=== PATIENT | female | born 1940 | race Caucasian/White ===

== ENCOUNTER 2018-11-15 11:11 | Inpatient (IN) | payer MEDICARE ==
[~2018-11-15] VITALS: Ht 160 cm; Wt 65.7 kg
[2018-11-15] VITALS (14 sets, daily range): BP systolic 86–126; BP diastolic 49–94
[~2018-11-15 11:11] MED LIST: FLUT1DIS26 IH; METO-370 PO; TIOT18CA2 IH
[2018-11-15] MEDS ORDERED: MELATONIN 3 MG TABLET PO PRN (12:15)
[2018-11-15] MEDS ORDERED: CALCIUM CARBONATE 500 MG (TUMS) TAB.CHEW PO PRN (12:15)
[2018-11-15] MEDS ORDERED: fentaNYL INJECTION 100 MCG/2 ML AMP IVP PRN (12:15)
[2018-11-15] MEDS ORDERED: POLYETHYLENE GLYCOL 17 GM (MIRALAX) PACK PO PRN (12:15)
[2018-11-15] MEDS ORDERED: diphenhydrAMINE 25 MG TAB (BENADRYL) PO PRN (12:15)
[2018-11-15] MEDS ORDERED: ALPRAZolam 0.25 MG (XANAX) TAB PO PRN (12:15)
[2018-11-15] MEDS ORDERED: LOPERAMIDE 2 MG (IMODIUM) CAP PO PRN (12:15)
[2018-11-15] MEDS ORDERED: ONDANSETRON 4 MG/2 ML (SDV) Z0FRAN IVP PRN (12:15)
[2018-11-15] MEDS ORDERED: HYDROcodone/APAP 5 MG/325 MG (LORTAB) TAB PO PRN (12:15)
[2018-11-15] MEDS ORDERED: DOCUSATE SODIUM 100 MG (COLACE) CAP PO PRN (12:15)
--- OUTSIDE RECORDS SUMMARY | 2018-11-15 13:09 | XMS REPORT | Clinical Summary ---
Author Author [facility] Organization [facility] Address Unknown Phone Unavailable Care Team Providers Care Fuel Efficient Automobile Designer Name Role Phone Jamison Ramirez MD PCP Source Comments Some departments are not documenting in the electronic medical record. If you do not see the information that you expected, contact Release of Information in the Health Information Management department at [phone] for further assistance in locating additional records.[facility] Allergies Comments Active Allergy Reactions Severity Noted Date Bactrim has caused her Creatinine to increase dramatically, from 1.22 to 2.15 Sulfamethoxazole-Trimetho SEE COMMENTS Medium 07/19/2017 prim Medications End Date Status Medication Sig Dispensed Refills Start Date Active metoprolol XL (TOPROL XL) Take 50 mg by 0 50 mg extended release mouth twice tabletIndications: Pt. daily. suppose to be taking Indications: this, but says she only Pt. 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 Palpitation 10/10/2017 Pseudomonas infection 08/29/2017 Bronchiectasis with acute exacerbation 08/15/2017 Encounters Care Team Description Date Type Specialty Haydee Agrawal MD Chronic renal impairment, unspecified CKD stage (Primary Dx) 10/24/2018 Orders Only Pulmonology Yoli Coyle, RN 10/08/2018 Documentation Pulmonology Haydee Agrawal MD Chronic renal failure, unspecified CKD stage (Primary Dx) ; History of elevated antinuclear antibody (KARMA) 09/26/2018 Orders Only Pulmonology Haydee Argawal MD 09/18/2018 Hospital Lab Encounter Haydee Agrawal MD Bronchiectasis without complication (HCC) (Primary Dx); Elevated serum creatinine; Thyroid nodule 09/18/2018 Office Visit Pulmonology Haydee Agrawal MD 09/18/2018 Hospital Encounter Haydee Agrawal MD 09/18/2018 Hospital Radiology Encounter Haydee Agrawal MD 09/18/2018 Hospital Radiology Encounter from Last 3 Months Family History Medical History Relation Name Comments Cancer Brother Cancer Mother Tumor Other Cancer Son Relation Name Status Comments Brother Mother Other Son Social History Date Tobacco Use Types Packs/Day Years Used Quit: 06/13/1997 Former Smoker Cigarettes Smokeless Tobacco: Never Used Tobacco Cessation: Counseling Given: No Sex Assigned at Date Recorded Not on file Industry Job Start Date Occupation Not on file Not on file Not on file Travel End Travel History Travel Start No recent travel history available. Last Filed Vital Signs Time Taken Vital Sign Reading 09/18/2018 11:36 AM STEM ROLLER Blood Pressure 119/71 09/18/2018 11:36 AM STEM ROLLER Pulse 103 09/18/2018 11:36 AM STEM ROLLER Temperature 36.6 C (97.8 F) 09/18/2018 11:36 AM STEM ROLLER Respiratory Rate 16 09/18/2018 11:36 AM STEM ROLLER Oxygen Saturation 95% - Inhaled Oxygen - Concentration 09/18/2018 11:36 AM STEM ROLLER Weight 62.6 kg (138 lb) 09/18/2018 11:36 AM STEM ROLLER Height 160 cm (5' 3") 09/18/2018 11:36 AM STEM ROLLER Body Mass Index 24.45 Plan of Treatment Health Maintenance Due Date Last Done Comments PHYSICAL (COMPREHENSIVE) 1947 EXAM DTAP/TDAP VACCINES (1 - 1957 Tdap) SHINGLES RECOMBINANT 1989 VACCINE (1 of 2) PNEUMONIA (PCV13/PPSV23) 2004 VACCINES (1 of 2 - PCV13) INFLUENZA VACCINE 05/30/2018 OSTEOPOROSIS Completed 10/10/2017 SCREENING/MONITORING Procedures Comments Procedure Name Priority Date/Time Associated Diagnosis URINALYSIS, MICROSCOPIC Routine 09/18/2018 Elevated serum creatinine 12:51 PM STEM ROLLER URINALYSIS DIPSTICK Routine 09/18/2018 Elevated serum creatinine 12:51 PM STEM ROLLER ANTI-NUCLEAR Routine 09/18/2018 AB(KARMA)-QUANT 12:39 PM STEM ROLLER ANTI-NUCLEAR Routine 09/18/2018 Bronchiectasis without ANTIBODY(KARMA) 12:39 PM STEM ROLLER complication (HCC) COMPREHENSIVE METABOLIC Routine 09/18/2018 Bronchiectasis without PANEL 12:39 PM STEM ROLLER complication (HCC) CBC AND DIFF Routine 09/18/2018 Bronchiectasis without 12:39 PM STEM ROLLER complication (HCC) PFT COMPLETE PULM Routine 09/18/2018 Shortness of breath FUNCTION 8:26 AM STEM ROLLER CHEST 2 VIEWS Routine 09/18/2018 Bronchiectasis without 8:20 AM STEM ROLLER complication (HCC) Cough CT CHEST WO CONTRAST Routine 09/18/2018 Bronchiectasis without 8:02 AM STEM ROLLER complication (HCC) Cough from Last 3 Months Results * URINALYSIS, MICROSCOPIC (09/18/2018 12:51 PM STEM ROLLER) WBCs,UA 0-2 0 - 2 /HPF [facility] RBCs,UA 0-2 0 - 3 /HPF [facility] MucousUA TRACE [facility] Squamous Epithelial Cells 0-2 0 - 5 [facility] Specimen Urine - Urine Performing Organization Address City/State/Zipcode Phone Number [facility] [address] [place] [address] * URINALYSIS DIPSTICK (09/18/2018 12:51 PM STEM ROLLER) Color,UA YELLOW [facility] Turbidity,UA CLEAR CLEAR-CLEAR [facility] Specific Danese-Urine 1.018 1.003 - 1.035 [facility] pH,UA 6.0 5.0 - 8.0 [facility] Protein,UA 1+ (A) NEG-NEG [facility] Glucose,UA NEG NEG-NEG [facility] Ketones,UA NEG NEG-NEG [facility] Bilirubin,UA NEG NEG-NEG [facility] Blood,UA NEG NEG-NEG [facility] Urobilinogen,UA NORMAL NORM-NORMAL [facility] Nitrite,UA NEG NEG-NEG [facility] Leukocytes,UA NEG NEG-NEG [facility] Urine Ascorbic Acid, UA NEG NEG-NEG [facility] Specimen Urine - Urine Performing Organization Address [facility] Phone Number [facility] [address] [place] [address] * ANTI-NUCLEAR AB(KARMA)-QUANT (09/18/2018 12:39 PM STEM ROLLER) KARMA Titer/Pattern 160 (H)Comment: SPECKLED <80 [facility] Performing Organization Address [facility] Phone Number [facility] [address] [place] [address] * CBC AND DIFF (09/18/2018 12:39 PM STEM ROLLER) White Blood Cells 10.6 4.5 - 11.0 K/UL [facility] RBC 4.39 4.0 - 5.0 M/UL [facility] Hemoglobin 13.3 12.0 - 15.0 GM/DL [facility] Hematocrit 40.6 36 - 45 % [facility] MCV 92.5 80 - 100 FL [facility] MCH 30.2 26 - 34 PG [facility] MCHC 32.7 32.0 - 36.0 G/DL [facility] RDW 13.4 11 - 15 % [facility] Platelet Count 223 150 - 400 K/UL [facility] MPV 7.9 7 - 11 FL [facility] Neutrophils 64 41 - 77 % [facility] Lymphocytes 26 24 - 44 % [facility] Monocytes 7 4 - 12 % [facility] Eosinophils 3 0 - 5 % [facility] Basophils 0 0 - 2 % [facility] Absolute Neutrophil Count 6.70 1.8 - 7.0 K/UL [facility] Absolute Lymph Count 2.80 1.0 - 4.8 K/UL [facility] Absolute Monocyte Count 0.80 0 - 0.80 K/UL [facility] Absolute Eosinophil Count 0.30 0 - 0.45 K/UL [facility] Absolute Basophil Count 0.00 0 - 0.20 K/UL [facility] Specimen Blood Performing Organization Address [facility] Phone Number [facility] [address] [place] [address] * ANTI-NUCLEAR ANTIBODY(KARMA) (09/18/2018 12:39 PM STEM ROLLER) KARMA Screen SEE TITER <80 TITER [facility] Specimen Blood Performing Organization Address [facility] Phone Number [facility] [address] [place] [address] * COMPREHENSIVE METABOLIC PANEL (09/18/2018 12:39 PM STEM ROLLER) Sodium 142 137 - 147 MMOL/L [facility] Potassium 4.2 3.5 - 5.1 MMOL/L [facility] Chloride 108 98 - 110 MMOL/L [facility] Glucose 108 (H) 70 - 100 MG/DL [facility] Blood Urea Nitrogen 19 7 - 25 MG/DL [facility] Creatinine 1.39 (H) 0.4 - 1.00 MG/DL [facility] Calcium 9.7 8.5 - 10.6 MG/DL [facility] Total Protein 7.4 6.0 - 8.0 G/DL [facility] Total Bilirubin 0.5 0.3 - 1.2 MG/DL [facility] Albumin 4.0 3.5 - 5.0 G/DL [facility] Alk Phosphatase 69 25 - 110 U/L [facility] AST (SGOT) 18 7 - 40 U/L [facility] CO2 28 21 - 30 MMOL/L [facility] ALT (SGPT) 9 7 - 56 U/L [facility] Anion Gap 6 3 - 12 [facility] eGFR Non 37 (L) >60 mL/min [facility] Comment: The eGFR is not validated for use in drug dosing adjustments.Continue to use estimated creatinine clearance per dosing reference text.Please contact the Clinical Pharmacist for questions. eGFR 44 (L) >60 mL/min [facility] Comment: The eGFR is not validated for use in drug dosing adjustments.Continue to use estimated creatinine clearance per dosing reference text.Please contact the Clinical Pharmacist for questions. Specimen Blood Performing Organization Address City/State/Zipcode Phone Number [facility] [address] [place] [address] * PFT COMPLETE PULM FUNCTION (09/18/2018 8:26 AM STEM ROLLER) FVC-Pre 1.89 L [facility] FVC-%Pred-pre 74 % [facility] FEV1-Pre 1.29 L [facility] FEV1-%Pred-Pre 68 % [facility] FEV1/FVC-Pre 68 % [facility] [id number] 64 % [facility] [id number] 0.72 L/sec [facility] [id number]-%Pred-Pre 50 % [facility] RVPleth-Pre 2.53 L [facility] RVPleth-%Pred-Pre 109 % [facility] TLCPleth-Pre 4.46 L [facility] TLCPleth-%Pred-Pre 90 % [facility] DLCOunc-Pre 10.64 ml/min/mmHg [facility] DLCOunc-%Pred-Pre 55 % [facility] DLCOunc-#SD -2.263 ml/min/mmHg [facility] DLVA-Pred 4.19 ml/min/mmHg/L [facility] DLVA-Pre 3.09 ml/min/mmHg/L [facility] DLVA-%Pred-Pre 73 % [facility] DLVA-SD 0.80 ml/min/mmHg/L [facility] DLVA-LLN 2.59 ml/min/mmHg/L [facility] DLVA-ULN 5.79 ml/min/mmHg/L [facility] DLVA-#SD -1.373 ml/min/mmHg/L [facility] [id number] 66 % [facility] Performing Organization Address City/State/Zipcode Phone Number [facility] [address] [place] [address] * CHEST 2 VIEWS (09/18/2018 8:20 AM STEM ROLLER) Impressions Performed At Slight increase in scattered nodularity, mild bronchiectasis, mucous plugging [facility] and scattered areas of scarring. 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 Finalized by John Powers M.D. on 09/18/2018 9:50 AM. Dictated by John Powers M.D. on 09/18/2018 9:48 AM. Narrative Performed At 2 views of the chest [facility] Clinical history: Bronchiectasis. Findings: Comparison chest film: August 29, 2017 The heart and pulmonary vasculature remain within normal limits. Scattered nodularity, scarring, mild bronchiectasis and mucous plugging have slightly increased throughout both lungs. Biapical scarring is again noted. No pleural effusion or pneumothorax is identified. Procedure Note Interface, Radiant Results - 09/18/2018 9:53 AM STEM ROLLER 2 views of the chest Clinical history: Bronchiectasis. Findings: Comparison chest film: August 29, 2017 The heart and pulmonary vasculature remain within normal limits. Scattered nodularity, scarring, mild bronchiectasis and mucous plugging have slightly increased throughout both lungs. Biapical scarring is again noted. No pleural effusion or pneumothorax is identified. IMPRESSION Slight increase in scattered nodularity, mild bronchiectasis, mucous plugging and scattered areas of scarring. 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 Finalized by John Powers M.D. on 09/18/2018 9:50 AM. Dictated by John Powers M.D. on 09/18/2018 9:48 AM. Performing Organization Address City/State/Zipcode Phone Number [facility] * CT CHEST WO CONTRAST (09/18/2018 8:02 AM STEM ROLLER) Impressions Performed At 1. Increasing moderate patchy and nodular infiltrate throughout the right lower [facility] lobe with persistent scattered mild nodular infiltrates, mild bronchiectasis and mucous plugging again seen throughout both lungs findings are compatible with worsening chronic atypical infection such as from mycobacterium avium complex (MAC). 2. Small partially calcified right inferior thyroid nodule. Ultrasound characterization is recommended if not already obtained. 3. At least moderate coronary artery calcification. Finalized by John Powers M.D. on 09/18/2018 8:29 AM. Dictated by John Powers M.D. on 09/18/2018 8:23 AM. Narrative Performed At CT Chest [facility] Clinical Indication: Multiple pulmonary nodules. Bronchiectasis. Cough. Technique: Multiple contiguous axial CT images were obtained through the chest without IV contrast.Post processing coronal and sagittal reconstruction images were made from the axial images.Additional high-resolution inspiration, expiration and prone imaging was obtained. Comparison: August 23, [address] Findings: A small partially calcified right inferior thyroid nodule measures 1.5 cm on series 3, image 7. Axilla, Mediastinum and Dania: There is no axillary or hilar lymphadenopathy identified. A few mildly prominent mediastinal lymph nodes have decreased in size and are likely reactive. Heart and Great Vessels: The heart size is normal. There is a trace pericardial effusion. There is at least moderate coronary artery calcification. Lungs and Pleura: There is increasing moderate patchy and nodular infiltrate throughout the right lower lobe. Scattered mild nodular infiltrates, mild bronchiectasis and mucous plugging are again seen scattered throughout both lungs. No pleural effusions. Chest Wall and Osseous Structures: No destructive osseous lesions. Visualized Upper Abdomen: Clips are again seen in the gallbladder fossa. Procedure Note Interface, Radiant Results - 09/18/2018 8:[address] Chest Clinical Indication: Multiple pulmonary nodules. Bronchiectasis. Cough. Technique: Multiple contiguous axial CT images were obtained through the chest without IV contrast. Post processing coronal and sagittal reconstruction images were made from the axial images. Additional high-resolution inspiration , expiration and prone imaging was obtained. Comparison: August 23, [address] Findings: A small partially calcified right inferior thyroid nodule measures 1.5 cm on series 3, image 7. Axilla, Mediastinum and Dania: There is no axillary or hilar lymphadenopathy identified. A few mildly prominent mediastinal lymph nodes have decreased in size and are likely reactive. Heart and Great Vessels: The heart size is normal. There is a trace pericardial effusion. There is at least moderate coronary artery calcification. Lungs and Pleura: There is increasing moderate patchy and nodular infiltrate throughout the right lower lobe. Scattered mild nodular infiltrates, mild bronchiectasis and mucous plugging are again seen scattered throughout both lungs. No pleural effusions. Chest Wall and Osseous Structures: No destructive osseous lesions. Visualized Upper Abdomen: Clips are again seen in the gallbladder fossa. IMPRESSION 1. Increasing moderate patchy and nodular infiltrate throughout the right lower lobe with persistent scattered mild nodular infiltrates, mild bronchiectasis and mucous plugging again seen throughout both lungs findings are compatible with worsening chronic atypical infection such as from mycobacterium avium complex (MAC). 2. Small partially calcified right inferior thyroid nodule. Ultrasound characterization is recommended if not already obtained. 3. At least moderate coronary artery calcification. Finalized by John Powers M.D. on 09/18/2018 8:29 AM. Dictated by John Powers M.D. on 09/18/2018 8:23 AM. Performing Organization Address City/State/Zipcode Phone Number [facility] from Last 3 Months Insurance Payer Benefit Subscriber ID Type Phone Address Plan / Group COVENTRY MEDICARE COVENTRY xxxxxxxxxxx Medicare ADVANTRA MEDICARE PPO Advance Directives Patient has advance care planning documents, and code status on file. For more information, please contact: [facility] [address] [place] [address] Date Inactivated Comments Code Status Date Activated 09/01/2017 7:06 PM Full Code 08/29/2017 7:33 AM Provider has discussed Code Status Yes w/Patient or Family?
--- OUTSIDE RECORDS SUMMARY | 2018-11-15 13:09 | XMS REPORT | Encounter Summary ---
Author Author [facility] Organization [facility] Address Unknown Phone Unavailable Care Team Providers Care Net Wpf Developer Name Role Phone Jamison Ramirez MD PCP Reason for Referral * Consult, Test & Treat (Routine) Referred By Contact Referred To Contact Status Reason Specialty Diagnoses / [place] [address] [place] [address] [address] [place] [address] New Request Specialty Services Diagnoses Required History of elevated antinuclear antibody (KARMA) * Consult, Test & Treat (Routine) Referred By Contact Referred To Contact Status Reason Specialty Diagnoses / [place] [address] [place] [address] [address] [place] [address] Tom Jett MD [address] [place] [id number] New Request Specialty Services Diagnoses Required Chronic renal failure, unspecified CKD stage Encounter Details Care Team Description Date Type [place] [address] [place] [address] [address] [place] [address] [phone] Chronic renal failure, unspecified CKD stage (Primary Dx); History of elevated antinuclear antibody (KARMA) 09/26/2018 Orders Only [facility] - Internal Medicine [facility] Level 5A [address] [place] [address] Social History Date Tobacco Use Types Packs/Day Years Used Quit: 06/13/1997 Former Smoker Cigarettes Smokeless Tobacco: Never Used Sex Assigned at Date Recorded Not on file Industry Job Start Date Occupation Not on file Not on file Not on file Travel End Travel History Travel Start No recent travel history available. as of this encounter Functional Status Date of Assessment Functional Status Response 08/29/2017 Does the patient have a hearing impairment: No as of this encounter Plan of Treatment Order Schedule Name Priority Associated Diagnoses Ordered: 09/26/2018 AMB REFERRAL TO NEPHROLOGY Routine Chronic renal failure, unspecified CKD stage Ordered: 09/26/2018 AMB REFERRAL TO RHEUMATOLOGY Routine History of elevated antinuclear antibody (KARMA) as of this encounter Visit Diagnoses Diagnosis Chronic renal failure, unspecified CKD stage - Primary History of elevated antinuclear antibody (KARMA) in this encounter
--- OUTSIDE RECORDS SUMMARY | 2018-11-15 13:09 | XMS REPORT | Encounter Summary ---
Author Author [facility] Organization [facility] Address Unknown Phone Unavailable Care Team Providers Care Bench Manager Name Role Phone Jamison Ramirez MD PCP Encounter Details Care Team Description Date Type Department Haydee Agrawal MD [address] [facility] [place] [address] [place] [address] Chronic renal impairment, unspecified CKD stage (Primary Dx) 10/24/2018 Orders Only [facility] Physicians - Internal Medicine Orth[facility] Level 5A [address] [place] [address] Social History Date Tobacco Use [...] hearing impairment: No as of this encounter Progress Notes * Yoli Coyle, RN - 10/24/2018 9:19 AM POWERHOUSE MECHANIC Orders for renal panel, CBC, UA with microscopy and spot urine for protein and creatinine ratio requested by [facility], to whom patient has been referred for chronic renal insufficiency. They also want her last lipid profile, but I am unsure if she has had one drawn within the last year. They have requested that these labs be drawn 1-2 weeks prior to patient's appointment with them, and appointment is in December,. I will advise patient and fax lab orders to the lab or OSH of her choice. Patient called as I was working on this and she got her appointment with [facility] moved up to December 25. I advised that they wanted labs and urine 1-2 weeks prior to appointment. She wanted lab orders faxed to [facility] and I advised her to get them done sometime after December 14 but prior to December 25. I faxed lab order to [facility] and I will also mail lab orders to patient so she can take them with her when she goes to have labs drawn. Patient is in agreement with this plan. RHOUSE MECHANIC in this encounter Plan of Treatment Order Schedule Name Priority Associated Diagnoses Expected: 01/14/2019 (Approximate), Expires: 10/24/2019 CBC Routine Chronic renal impairment, unspecified CKD stage Expected: 01/14/2019 (Approximate), Expires: 10/24/2019 LIPID PROFILE Routine Chronic renal impairment, unspecified CKD stage Expected: 01/14/2019 (Approximate), Expires: 10/24/2019 RENAL FUNCTION PANEL Routine Chronic renal impairment, unspecified CKD stage Expected: 01/14/2019 (Approximate), Expires: 10/24/2019 URINALYSIS, MICROSCOPIC Routine Chronic renal impairment, unspecified CKD stage Expected: 01/14/2019 (Approximate), Expires: 10/24/2019 TOTAL PROTEIN-URINE RANDOM Routine Chronic renal impairment, unspecified CKD stage Expected: 01/14/2019 (Approximate), Expires: 10/24/2019 PROTEIN/CR RATIO,UR RAN Routine Chronic renal impairment, unspecified CKD stage as of this encounter Visit Diagnoses Diagnosis Chronic renal impairment, unspecified CKD stage - Primary in this encounter
--- OUTSIDE RECORDS SUMMARY | 2018-11-15 13:09 | XMS REPORT | Encounter Summary ---
Author Author [facility] Organization [facility] Address Unknown Phone Unavailable Care Team Providers Care Online Education Manager Name Role Phone Jamison Ramirez MD PCP Encounter Details Care Team Description Date Type Department Yoli Coyle RN 10/08/2018 Documentation [facility] - Internal Medicine [facility] Level 5A [address] [place] [address] Social History Date Tobacco Use [...] Progress Notes * Yoli Coyle, RN - 10/08/2018 1:26 PM RESIDENTIAL SERVICE TECHNICIAN 10/15/2018: I was advised that Dr. Jett is a urologist and does not work with kidney patients. I spoke with Bela and advised that we have another name for nephrology referral: Dr. Rebecca Toney at [facility] ( physician travels to [place], [place] to see patients but appt may be delayed if Bela elects to see the doctor in [place]). Bela was agreeable to having me do new referral to this physician. Nephrology referral faxed to [facility], fax #[phone]. Contact that I spoke to at [facility] advised that I must continue to coordinate this appointment including ordering labs since they do not contact the patient for appointments and labs. In addition, Bela refused rheumatology referral since she is not sure of the importance of seeing rheumatology; she says that seeing nephrology is more important. At this time I will stop pursuing the rheumatology referral. DENTIAL SERVICE TECHNICIAN * Yoli Coyle RN - 10/08/2018 1:26 PM RESIDENTIAL SERVICE TECHNICIAN Received results of thyroid ultrasound from [facility]. Impression: Inferior right thyroid nodule does not meet criteria for FNA (fine needle aspiration). Recommend ultrasound follow-up at one, three and five years. I called Bela to advise. Also, advised Bela that referral to nephrology, Dr. Jett, was faxed September 26. Rheumatology referral was faxed to [facility] today, October 08. 10/08/2018: Bela advised that Dr. Jett's office never received referral that I faxed to them on September 26 (I received document that fax was sent successfully). I refaxed referral and documents to Dr. Jett's office, fax #[phone], as verified by acetylene operator at Dr. Jett's office. DENTIAL SERVICE TECHNICIAN in this encounter Plan of Treatment Not on fileas of this encounter Visit Diagnoses Not on filein this encounter
--- OUTSIDE RECORDS SUMMARY | 2018-11-15 13:09 | XMS REPORT | Encounter Summary ---
Author Author [facility] Organization [facility] Address Unknown Phone Unavailable Care Team Providers Care Network Infrastructure Architect Name Role Phone Jamison Ramirez MD PCP Encounter Details Care Team Description Date Type Department Haydee Agrawal MD [address] [facility] [address] [place] [address] 09/18/2018 Hospital Clinlab Encounter Main [facility] [address] [place] [address] Social History Date Tobacco Use Types Packs/Day [...] hearing impairment: No as of this encounter Medications at Time of Discharge Start Date End Date Medication Sig Dispensed Refills metoprolol XL (TOPROL XL) Take 50 mg by 0 50 mg extended release mouth twice tabletIndications: Pt. daily. suppose to be taking Indications: this, but says she only Pt. suppose takes it when she feels to be taking her heart flutter this, but says she only takes it when she feels her heart flutter 03/19/2018 XARELTO 15 mg tablet TAKE ONE 30 tablet 2 TABLET BY MOUTH ONCE DAILY WITH FOOD as of this encounter Plan of Treatment Not on fileas of this encounter Procedures Comments Procedure Name Priority Date/Time Associated Diagnosis URINALYSIS, MICROSCOPIC Routine 09/18/2018 Elevated serum creatinine 12:51 PM RADIOLOGY MANAGER URINALYSIS DIPSTICK Routine 09/18/2018 Elevated serum creatinine 12:51 PM RADIOLOGY MANAGER ANTI-NUCLEAR Routine 09/18/2018 AB(KARMA)-QUANT 12:39 PM RADIOLOGY MANAGER CBC AND DIFF Routine 09/18/2018 Bronchiectasis without 12:39 PM RADIOLOGY MANAGER complication (HCC) ANTI-NUCLEAR Routine 09/18/2018 Bronchiectasis without ANTIBODY(KARMA) 12:39 PM RADIOLOGY MANAGER complication (HCC) COMPREHENSIVE METABOLIC Routine 09/18/2018 Bronchiectasis without PANEL 12:39 PM RADIOLOGY MANAGER complication (HCC) in this encounter Results * URINALYSIS, MICROSCOPIC (09/18/2018 12:51 PM RADIOLOGY MANAGER) WBCs,UA 0-2 0 - 2 /HPF [facility] RBCs,UA 0-2 0 - 3 /HPF [facility] MucousUA TRACE [facility] Squamous Epithelial Cells 0-2 0 - 5 [facility] Specimen Urine - Urine Performing Organization Address [facility] Phone Number [facility] [address] [place] [address] * URINALYSIS DIPSTICK (09/18/2018 12:51 PM RADIOLOGY MANAGER) Color,UA YELLOW [facility] Turbidity,UA CLEAR CLEAR-CLEAR [facility] Specific Lee-Urine 1.018 1.003 - 1.035 [facility] [...] Specimen Urine - Urine Performing Organization Address [facility] Phone Number [facility] [address] [place] [address] * ANTI-NUCLEAR AB(KARMA)-QUANT (09/18/2018 12:39 PM RADIOLOGY MANAGER) KARMA Titer/Pattern 160 (H)Comment: SPECKLED <80 [facility] Performing Organization Address [facility] Phone Number [facility] [address] [place] [address] * ANTI-NUCLEAR ANTIBODY(KARMA) (09/18/2018 12:39 PM RADIOLOGY MANAGER) KARMA Screen SEE TITER <80 TITER [facility] Specimen Blood Performing Organization Address [facility] Phone Number [facility] [address] [place] [address] * COMPREHENSIVE METABOLIC PANEL (09/18/2018 12:39 PM RADIOLOGY MANAGER) Sodium 142 137 - 147 MMOL/L [facility] [...] for questions. Specimen Blood Performing Organization Address [facility] Phone Number [facility] [address] [place] [address] * CBC AND DIFF (09/18/2018 12:39 PM RADIOLOGY MANAGER) White Blood Cells 10.6 4.5 - 11.0 [...] MAIN LAB Specimen Blood Performing Organization Address City/State/Zipcode Phone Number [facility] [address] [place] [address] in this encounter Visit Diagnoses Diagnosis Bronchiectasis without complication (HCC) Bronchiectasis without acute exacerbation Elevated serum creatinine Other nonspecific findings on examination of blood in this encounter
--- OUTSIDE RECORDS SUMMARY | 2018-11-15 13:10 | XMS REPORT | Encounter Summary ---
Author Author [facility] Organization [facility] Address Unknown Phone Unavailable Care Team Providers Care Machine Paint Mixer Name Role Phone Jamison Ramirez MD PCP Encounter Details Care Team Description Date Type Department Haydee Agrawal MD [address] [employer] [facility] [address] [place] [address] 09/18/2018 Hospital [facility] Radiology [address] [facility] MED OFFICE [address] [place] [address] Social History Date Tobacco Use Types Packs/Day [...] Comments Procedure Name Priority Date/Time Associated Diagnosis CHEST 2 VIEWS Routine 09/18/2018 Bronchiectasis without 8:20 AM MAJOR ASSEMBLY INSPECTOR complication (HCC) Cough in this encounter Results * CHEST 2 VIEWS (09/18/2018 8:20 AM MAJOR ASSEMBLY INSPECTOR) Impressions Performed At Slight increase in scattered [...] Interface, Radiant Results - 09/18/2018 9:53 AM MAJOR ASSEMBLY INSPECTOR 2 views of the chest Clinical history: [...] Address City/State/Zipcode Phone Number [facility] RESULTS in this encounter Visit Diagnoses Diagnosis Bronchiectasis without complication (HCC) Bronchiectasis without acute exacerbation Cough in this encounter
--- OUTSIDE RECORDS SUMMARY | 2018-11-15 13:10 | XMS REPORT | Encounter Summary ---
Author Author [facility] Organization [facility] Address Unknown Phone Unavailable Care Team Providers Care Crystallography Teacher Name Role Phone Jamison Ramirez MD PCP Reason for Visit * Consult, Test & Treat (Routine) Referred By Contact Referred To Contact Status Reason Specialty Diagnoses / Procedures Haydee Agrawal MD [id number] [place] [address] Pulmonary Function [facility] [address] [place] [address] No Auth Needed Specialty Services Diagnoses Required Bronchiectasis without complication (HCC) Cough Encounter Details Care Team Description Date Type Department Haydee Agrawal MD [id number] [place] [address] [phone] 09/18/2018 Hospital [facility] Pulmonary Function [facility] [address] [place] [address] Social History Date Tobacco Use Types Packs/Day [...] Comments Procedure Name Priority Date/Time Associated Diagnosis PFT COMPLETE PULM Routine 09/18/2018 Shortness of breath FUNCTION 8:26 AM US CUSTOMS AND BORDER OFFICER in this encounter Results * PFT COMPLETE PULM FUNCTION (09/18/2018 8:26 AM US CUSTOMS AND BORDER OFFICER) FVC-Pre 1.89 L [facility] FVC-%Pred-pre 74 % [facility] FEV1-Pre 1.29 L [facility] FEV1-%Pred-Pre 68 % [facility] FEV1/FVC-Pre 68 % [facility] [id number] 64 % [facility] [id number] 0.72 L/sec [facility] [id number]-%Pred-Pre 50 % [facility] RVPleth-Pre 2.53 [...] MAIN DLVA-#SD -1.373 ml/min/mmHg/L [facility] [id number] 66 % [facility] Performing Organization Address City/State/Zipcode Phone Number [facility] [address] [place] [address] in this encounter Visit Diagnoses Diagnosis Shortness of breath - Primary in this encounter
--- OUTSIDE RECORDS SUMMARY | 2018-11-15 13:10 | XMS REPORT | Encounter Summary ---
Author Author [facility] Organization [facility] Address Unknown Phone Unavailable Care Team Providers Care Vocational Technical Education Director Name Role Phone Jamison Ramirez MD PCP Reason for Referral * Radiology Services (Routine) Referred By Contact Referred To Contact Status Reason Specialty Diagnoses / Procedures Haydee Agrawal MD [address] [place] [address] [place] [facility] [place] [address] Closed Radiology Diagnoses Bronchiectasis without complication (HCC) Cough P rocedures CT CHEST WO CONTRAST * Radiology Services (Routine) Referred By Contact Referred To Contact Status Reason Specialty Diagnoses / Procedures Haydee Agrawal MD [address] [place] [address] [facility] [place] [address] Closed Radiology Diagnoses Bronchiectasis without complication (HCC) Cough P rocedures CT CHEST WO CONTRAST Reason for Visit * Radiology Services (Routine) Referred By Contact Referred To Contact Status Reason Specialty Diagnoses / Procedures Haydee Agrawal MD [address] [facility] [address] [place], [place] [id number] [address] [facility] [place] [address] Closed Radiology Diagnoses Bronchiectasis without complication (HCC) Cough P rocedures CT CHEST WO CONTRAST Encounter Details Care Team Description Date Type Department Haydee Agrawal MD [address] [facility] [address] [place] [address] [phone] 09/18/2018 Hospital [facility] Encounter Hospital Radiology [address] [facility] MED OFFICE [address] [place] [address] Social History Date Tobacco Use [...] Comments Procedure Name Priority Date/Time Associated Diagnosis CT CHEST WO CONTRAST Routine 09/18/2018 Bronchiectasis without 8:02 AM HVAC TECHNICIAN complication (HCC) Cough in this encounter Results * CT CHEST WO CONTRAST (09/18/2018 8:02 AM HVAC TECHNICIAN) Impressions Performed At 1. Increasing moderate patchy [...] Interface, Radiant Results - 09/18/2018 8:[address] Chest Clinical Indication: Multiple pulmonary nodules. [...]
--- OUTSIDE RECORDS SUMMARY | 2018-11-15 13:10 | XMS REPORT | Clinical Summary ---
Author Author [facility] Organization [facility] Address Unknown Phone Unavailable Care Team Providers Care Supervisor Rubber Covering Name Role Phone Severo Ramirez MD PCP Allergies Not on File Current Medications Not on file Active Problems Not on file Social History Tobacco Use Types Packs/Day Years Used Date Never Assessed Sex Assigned at Date Recorded Not on file Last Filed Vital Signs Not on file Plan of Treatment Health Maintenance Due Date Last Done Comments Td # 1940 Zoster Vaccine# (1 of 2) 1989 Fall Risk Assessment # 2004 Osteoporosis Screening 2004 Pneumococcal Immunization 2004 65+ (1 of 2 - PCV13) Influenza Vaccine (#1) 2018 Results Not on filefrom Last 3 Months
--- OUTSIDE RECORDS SUMMARY | 2018-11-15 13:10 | XMS REPORT | Continuity of Care Document ---
Author Author [facility] Organization [facility] Address Unknown Phone Unavailable Allergies Active Description Code Type Severity Reaction Onset Reported/Identified Relationship to Patient Clinical Status Yes No Known Drug Allergies [id number] Drug Allergy Unknown N/A 03/04/2016 Medications There is no data. Problems Date Dx Coded Attending Type Code Diagnosis Diagnosed By 03/01/2016 SANDOR WAYNE DO, Ot I31.3 PERICARDIAL EFFUSION (NONINFLAMMATORY) 03/01/2016 SANDOR WAYNE DO, Ot J47.9 BRONCHIECTASIS, UNCOMPLICATED 03/01/2016 SANDOR WAYNE DO Ot J84.9 INTERSTITIAL PULMONARY DISEASE, UNSPECIF 03/01/2016 SANDOR WAYNE DO Ot R06.00 DYSPNEA, UNSPECIFIED 03/09/2016 SANDOR WAYNE DO, Ot J47.9 BRONCHIECTASIS, UNCOMPLICATED 03/10/2016 SANDOR WAYNE DO, Ot J47.9 BRONCHIECTASIS, UNCOMPLICATED 03/17/2016 SANDOR WAYNE DO Ot I31.3 PERICARDIAL EFFUSION (NONINFLAMMATORY) 03/17/2016 SANDOR WAYNE DO, Ot J47.9 BRONCHIECTASIS, UNCOMPLICATED 03/17/2016 SANDOR WAYNE DO, Ot J84.9 INTERSTITIAL PULMONARY DISEASE, UNSPECIF 03/17/2016 SANDOR WAYNE DO Ot R06.00 DYSPNEA, UNSPECIFIED Procedures There is no data. Results Test Result Range Mycobacterium species detection by organism specific culture - 03/09/16 11:45 DATE/TIME MICROSCOPIC 03-11-2016 NRG MICROSCOPIC NO ACID-FAST BACILLI FOUND NRG AFB CULTURE NEGATIVE NRG DATE FINAL AFB CULTURE 05/03/16 09:04 NRG Complete blood count (CBC) with automated white blood cell (WBC) differential - 09/04/17 13:22 Blood leukocytes automated count (number/volume) 11.8 10*3/uL 4.3-11.0 Blood erythrocytes automated count (number/volume) 3.98 10*6/uL 4.35-5.85 Venous blood hemoglobin measurement (mass/volume) 12.0 g/dL 11.5-16.0 Blood hematocrit (volume fraction) 37 % 35-52 Automated erythrocyte mean corpuscular volume 93 [foz_us] 80-99 Automated erythrocyte mean corpuscular hemoglobin (mass per erythrocyte) 30 pg 25-34 Automated erythrocyte mean corpuscular hemoglobin concentration measurement ( mass/volume) 33 g/dL 32-36 Automated erythrocyte distribution width ratio 14.6 % 10.0-14.5 Automated blood platelet count (count/volume) 232 10*3/uL 130-400 Automated blood platelet mean volume measurement 9.7 [foz_us] 7.4-10.4 Automated blood neutrophils/100 leukocytes 62 % 42-75 Automated blood lymphocytes/100 leukocytes 25 % 12-44 Blood monocytes/100 leukocytes 8 % 0-12 Automated blood eosinophils/100 leukocytes 4 % 0-10 Automated blood basophils/100 leukocytes 1 % 0-10 Blood neutrophils automated count (number/volume) 7.3 10*3 1.8-7.8 Blood lymphocytes automated count (number/volume) 2.9 10*3 1.0-4.0 Blood monocytes automated count (number/volume) 1.0 10*3 0.0-1.0 Automated eosinophil count 0.5 10*3/uL 0.0-0.3 Automated blood basophil count (count/volume) 0.1 10*3/uL 0.0-0.1 Comprehensive metabolic panel - 09/04/17 13:22 Serum or plasma sodium measurement (moles/volume) 144 mmol/L 135-145 Serum or plasma potassium measurement (moles/volume) 3.5 mmol/L 3.6-5.0 Serum or plasma chloride measurement (moles/volume) 107 mmol/L 98-107 Carbon dioxide 24 mmol/L 21-32 Serum or plasma anion gap determination (moles/volume) 13 mmol/L 5-14 Serum or plasma urea nitrogen measurement (mass/volume) 16 mg/dL 7-18 Serum or plasma creatinine measurement (mass/volume) 1.22 mg/dL 0.60-1.30 Serum or plasma urea nitrogen/creatinine mass ratio 13 NRG Serum or plasma creatinine measurement with calculation of estimated glomerular filtration rate 43 NRG Serum or plasma glucose measurement (mass/volume) 75 mg/dL 70-105 Serum or plasma calcium measurement (mass/volume) 9.2 mg/dL 8.5-10.1 Serum or plasma total bilirubin measurement (mass/volume) 0.7 mg/dL 0.1-1.0 Serum or plasma alkaline phosphatase measurement (enzymatic activity/volume) 63 U/L 40-136 Serum or plasma aspartate aminotransferase measurement (enzymatic activity/ volume) 27 U/L 5-34 Serum or plasma alanine aminotransferase measurement (enzymatic activity/volume ) 23 U/L 0-55 Serum or plasma protein measurement (mass/volume) 6.8 g/dL 6.4-8.2 Serum or plasma albumin measurement (mass/volume) 3.6 g/dL 3.2-4.5 Encounters ACCT No. Visit Date/Time Discharge Status Pt. Type Provider Facility Loc./Unit Complaint [id number] 09/04/2017 10:19:00 09/04/2017 23:59:59 CLS Preadmit MARTÍN CHAVEZ MD, I [facility] NO DX GIVEN ON ORDER [id number] 03/09/2016 10:32:00 03/09/2016 12:45:00 DIS Outpatient SANDOR WAYNE DO [facility] SDC [id number] 03/04/2016 05:43:00 03/04/2016 11:46:00 DIS Outpatient SANDOR WAYNE DO [facility] PREOP [id number] 02/26/2016 14:34:00 02/26/2016 23:59:59 CLS Outpatient SANDOR WAYNE DO [facility] RAD [id number] 2018 12:55:00 ACT Inpatient SUNIL JAMISON DO [facility] ICU HYPOTENSION, AFIB WITH RVR
--- OUTSIDE RECORDS SUMMARY | 2018-11-15 13:10 | XMS REPORT | Encounter Summary ---
Author Author [facility] Organization [facility] Address Unknown Phone Unavailable Care Team Providers Care Acute Care Surgeon Name Role Phone Jamison Ramirez MD PCP Reason for Visit * Reason Comments Bronchiectasis Encounter Details Care Team Description Date Type Department Haydee Agrawal MD [address] [facility] [place] [address] [place] [address] Bronchiectasis without complication (HCC) (Primary Dx); Elevated serum creatinine; Thyroid nodule 09/18/2018 Office Visit [facility] - Internal Medicine [facility] Level 5A [address] [place] [address] Social History Date Tobacco Use Types Packs/Day Years Used Quit: 06/13/1997 Former Smoker Cigarettes Smokeless Tobacco: Never Used Sex Assigned at Date Recorded Not on file Industry Job Start Date Occupation Not on file Not on file Not on file Travel End Travel History Travel Start No recent travel history available. as of this encounter Last Filed Vital Signs Time Taken Vital Sign Reading 09/18/2018 11:36 AM MENTAL HEALTH TECHNICIAN Blood Pressure 119/71 09/18/2018 11:36 AM MENTAL HEALTH TECHNICIAN Pulse 103 09/18/2018 11:36 AM MENTAL HEALTH TECHNICIAN Temperature 36.6 C (97.8 F) 09/18/2018 11:36 AM MENTAL HEALTH TECHNICIAN Respiratory Rate 16 09/18/2018 11:36 AM MENTAL HEALTH TECHNICIAN Oxygen Saturation 95% - Inhaled Oxygen - Concentration 09/18/2018 11:36 AM MENTAL HEALTH TECHNICIAN Weight 62.6 kg (138 lb) 09/18/2018 11:36 AM MENTAL HEALTH TECHNICIAN Height 160 cm (5' 3") 09/18/2018 11:36 AM MENTAL HEALTH TECHNICIAN Body Mass Index 24.45 in this encounter Functional Status Date of Assessment Functional Status Response 08/29/2017 Does the patient have a hearing impairment: No as of this encounter Patient Instructions * Patient Instructions* Yoli Coyle RN - 09/18/2018 11:00 AM MENTAL HEALTH TECHNICIAN Topics covered at today's visit: Your lung function (FEV1) was: 68%, which is up 10% from May, We will only treat MAC (mycobacterium) if you start having significant symptoms There was a thyroid nodule found on the CT, so Dr. Agrawal would like you to get a thyroid ultrasound for further We will refer you to rheumatology. Call the hospital main number [phone] and ask for cardiology and call your cardiology doctor, Dr. Duran and arrange for a follow-up visit. Patient Instructions/Medication changes: None Things to do before you leave the building today: Please stop on the 1st floor lab and have some blood work drawn and do a urine test. Things to do prior to your next appointment with Dr. Agrawal: Call your excellence leader for a follow-up appointment Get an ultrasound of your thyroid See rheumatology. Dr. Agrawal would like to see you again in: 3-4 months If you have any questions or concerns, please feel free to contact us at any time. Please call if you have any symptoms that may indicate infection such as increase in cough, changes to sputum, fever, chills, night sweats or fatigue. Yoli Coyle RN Contact # [phone] For prescription refills, please contact your pharmacy and have them fax the request to our office at [phone]. For scheduling concerns, please call [phone] If you have urgent concerns on nights, weekends or holidays: please call the hospital at [phone] and request that the [employer] on-call be paged. If you use a nebulizer: Remember that nebulizers should be replaced every six months and they should be cleaned and sterilized every day. If you are doing nasal/sinus rinses, use distilled water or water that has been boiled for 3 minutes. Warm the water before using it for the nasal/sinus rinses. A gallon of distilled water is generally available at grocery stores for about $1.00. AL HEALTH TECHNICIAN in this encounter Progress Notes * Haydee Agrawal MD - 09/18/2018 11:00 AM MENTAL HEALTH TECHNICIAN Date of Service: 09/18/2018 Subjective: Bela Deleon is a 77 y.o. female. History of Present Illness I had the pleasure of seeing Bela deleon in our outpatient pulmonary clinic. Bela is a 77-year-old female referred for history of bronchiectasis. Bronchiectasis is predominantly affecting her right middle lobe though there are features bilaterally and she has CT evidence of atypical mycobacterial infection. Bela has been doing well since her previous visit with stable weight. She reports having some mild fatigue with exertion. She does have history of atrial fibrillation, and was placed on Xarelto, but she has not been seen by cardiology and follow-up despite the recommendation. She also states that she has not been taking her Xarelto. She denies any change in cough or sputum at this time. No hemoptysis. No weight loss. No fevers chills or night sweats. No change in appetite. She has not had any change in urinary symptoms. No hematuria, no increased frequency or urgency. Review of Systems Constitutional: Positive for fatigue (sometimes). Negative for activity change, appetite change, chills, fever and unexpected weight change. HENT: Positive for sinus pressure. Negative for congestion. Eyes: Negative for pain. Respiratory: Positive for chest tightness (sometime) and shortness of breath ( sometimes). See HPI Cardiovascular: Negative for chest pain and palpitations. Gastrointestinal: See HPI Endocrine: Negative for polyphagia and polyuria. Genitourinary: Negative for difficulty urinating and dysuria. Musculoskeletal: Negative for arthralgias and joint swelling. Skin: Negative for rash. Allergic/Immunologic: Negative for immunocompromised state. Neurological: Negative for headaches. Hematological: Negative for adenopathy. Does not bruise/bleed easily. Psychiatric/Behavioral: Negative for dysphoric mood. Objective: metoprolol XL (TOPROL XL) 50 mg extended release tablet Take 50 mg by mouth twice daily. Indications: Pt. suppose to be taking this, but says she only takes it when she feels her heart flutter XARELTO 15 mg tablet TAKE ONE TABLET BY MOUTH ONCE DAILY WITH FOOD Vitals: 09/18/18 1136 BP: 119/71 Pulse: 103 Resp: 16 Temp: 36.6 C (97.8 F) TempSrc: Oral SpO2: 95% Weight: 62.6 kg (138 lb) Height: 160 cm (63") Body mass index is 24.45 kg/m. Physical Exam Constitutional: She is oriented to person, place, and time. She appears well- developed and well-nourished. No distress. appears ill but non-toxic HENT: Head: Normocephalic and atraumatic. Right Ear: External ear normal. Left Ear: External ear normal. Nose: Nose normal. Mouth/Throat: Oropharynx is clear and moist. No oropharyngeal exudate. mild scleral injection Eyes: Pupils are equal, round, and reactive to light. Conjunctivae and EOM are normal. Right eye exhibits no discharge. Left eye exhibits no discharge. No scleral icterus. Neck: Normal range of motion. Neck supple. No JVD present. No tracheal deviation present. Cardiovascular: Regular rhythm, normal heart sounds and intact distal pulses. Exam reveals no gallop and no friction rub. No murmur heard. tachycardic Pulmonary/Chest: Effort normal. No stridor. No respiratory distress. She has no wheezes. She has rales. She exhibits no tenderness. Abdominal: Soft. Bowel sounds are normal. She exhibits no distension and no mass. There is no tenderness. There is no rebound and no guarding. No hernia. Musculoskeletal: Normal range of motion. She exhibits no edema, tenderness or deformity. Lymphadenopathy: She has no cervical adenopathy. Neurological: She is alert and oriented to person, place, and time. She exhibits normal muscle tone. Coordination normal. Skin: Skin is warm and dry. No rash noted. She is not diaphoretic. No erythema. Psychiatric: She has a normal mood and affect. Her behavior is normal. Judgment and thought content normal. Nursing note and vitals reviewed. CT thorax 09/18/18: IMPRESSION 1. Increasing moderate patchy and nodular [...] 3. At least moderate coronary artery calcification. Full PFTs were performed 09/18/18 IMPRESSION: Normal ventilatory studies with a moderate defect in diffusion. Component Value Flag Ref Range Units Status FVC-Pre 1.89 L Final FVC-%Pred-pre 74 % Final FEV1-Pre 1.29 L Final FEV1-%Pred-Pre 68 % Final FEV1/FVC-Pre 68 % Final [id number] 64 % Final [id number] 0.72 L/sec Final PBM3284-%Pred-Pre 50 % Final RVPleth-Pre 2.53 L Final RVPleth-%Pred-Pre 109 % Final TLCPleth-Pre 4.46 L Final TLCPleth-%Pred-Pre 90 % Final DLCOunc-Pre 10.64 ml/min/mmHg Final DLCOunc-%Pred-Pre 55 % Final DLCOunc-#SD -2.263 ml/min/mmHg Final DLVA-Pred 4.19 ml/min/mmHg/L Final DLVA-Pre 3.09 ml/min/mmHg/L Final DLVA-%Pred-Pre 73 % Final DLVA-SD 0.80 ml/min/mmHg/L Final DLVA-LLN 2.59 ml/min/mmHg/L Final DLVA-ULN 5.79 ml/min/mmHg/L Final DLVA-#SD -1.373 ml/min/mmHg/L Final [id number] 66 % Final Assessment and Plan: This is a 77 year old female with 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 Overall she is doing well with no significant change in constitutional or pulmonary symptoms. However, I am concerned about her non-adherence to Xarelto therapy, and her unaddressed chronic renal failure. Bela is reluctant to follow up with physicians and we have discussed this extensively on prior visit and again today. I explained risk to her of possible CVA if not taking anti- coagulation as recommended and also of potentially worsening renal function. She was, at the end of our conversation, willing to pursue next steps. 1. 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 Specifically, she does not meet criteria for therapy at this time, yet, and we will continue to follow her for signs and symptoms of active disease. She has grown: P. aeruginosa in 07/2017; CODI in 07/2017; Achromobacter 05/2017 2. H/o palpitations, placed on Xarelto by Cardiology despite "ELR not clearly showing AF but now with every day symptoms". She is to be taking Xarelto and Toprol but it is not clear she is taking either. Encouraged her to f/u with Cardiology CHRISTIANO. 3. H/o chronic renal failure: has had positive KARMA in past; will repeat, along with UA with microscopy, and provide referral to nephrology. RTC in 3 months or sooner as needed. AL HEALTH TECHNICIAN in this encounter Plan of Treatment Order Schedule Name Priority Associated Diagnoses Expected: 10/02/2018 (Approximate), Expires: 09/18/2019 US THYROID Routine Thyroid nodule as of this encounter Results * URINALYSIS, MICROSCOPIC (09/18/2018 12:51 PM MENTAL HEALTH TECHNICIAN) WBCs,UA 0-2 0 - 2 /HPF [facility] RBCs,UA 0-2 0 - 3 /HPF [facility] MucousUA TRACE [facility] Squamous Epithelial Cells 0-2 0 - 5 [facility] Specimen Urine - Urine Performing Organization Address City/State/Zipcode Phone Number [facility] [address] [place] [address] * URINALYSIS DIPSTICK (09/18/2018 12:51 PM MENTAL HEALTH TECHNICIAN) Color,UA YELLOW [facility] Turbidity,UA CLEAR CLEAR-CLEAR [facility] Specific Fowler-Urine 1.018 1.003 - 1.035 [facility] [...] LAB Urine Ascorbic Acid, UA NEG NEG-NEG [facility] Specimen Urine - Urine Performing Organization Address City/[facility] Phone Number [facility] [address] [place] [address] * ANTI-NUCLEAR ANTIBODY(KARMA) (09/18/2018 12:39 PM MENTAL HEALTH TECHNICIAN) KARMA Screen SEE TITER <80 TITER [facility] Specimen Blood Performing Organization Address [facility] Phone Number [facility] [address] [place] [address] * COMPREHENSIVE METABOLIC PANEL (09/18/2018 12:39 PM MENTAL HEALTH TECHNICIAN) Sodium 142 137 - 147 MMOL/L [facility] [...] for questions. Specimen Blood Performing Organization Address [facility]/Zipcode Phone Number [facility] [address] [place] [address] * CBC AND DIFF (09/18/2018 12:39 PM MENTAL HEALTH TECHNICIAN) White Blood Cells 10.6 4.5 - 11.0 [...] Address City/State/Zipcode Phone Number [facility] [address] [place] [address] in this encounter Visit Diagnoses Diagnosis Bronchiectasis without complication (HCC) - Primary Bronchiectasis without acute exacerbation Elevated serum creatinine Other nonspecific findings on examination of blood Thyroid nodule Nontoxic uninodular goiter in this encounter
[2018-11-15 13:29] LABS: BASOPHILS % (AUTO) 0 % (0-10); EOSINOPHILS # (AUTO) 0.2 10^3/uL (0.0-0.3); EOSINOPHILS % (AUTO) 1 % (0-10); HEMATOCRIT 36 % (35-52); HEMOGLOBIN 11.5 G/DL (11.5-16.0); LYMPHOCYTES # (AUTO) 1.8 X 10^3 (1.0-4.0); LYMPHOCYTES % (AUTO) 12 % (12-44); MEAN CORPUSCULAR HEMOGLOBIN 29 PG (25-34); MEAN CORPUSCULAR HGB CONC 32 G/DL (32-36); MEAN CORPUSCULAR VOLUME 90 FL (80-99); MEAN PLATELET VOLUME 9.9 FL (7.4-10.4); MONOCYTES # (AUTO) 1.4 X 10^3 (0.0-1.0); MONOCYTES % (AUTO) 9 % (0-12); NEUTROPHILS # (AUTO) 12.5 X 10^3 (1.8-7.8); NEUTROPHILS % (AUTO) 78 % (42-75); PLATELET COUNT 217 10^3/uL (130-400); RED BLOOD COUNT 3.97 10^6/uL (4.35-5.85); RED CELL DISTRIBUTION WIDTH 14.1 % (10.0-14.5); WHITE BLOOD COUNT 15.9 10^3/uL (4.3-11.0)
[2018-11-15] MEDS ORDERED: METO50TA15 PO (13:36)
--- NOTE | 2018-11-15 13:37 | NUR ---
SPOKE WITH THE PATIENT ABOUT HER MEDICATIONS. SHE STATES SHE DOES NOT TAKE ANYTHING OTC. SHE HAS A BLOOD PRESSURE/HEART MEDICATION BUT SHE DOES NOT TAKE IT PRESCRIBED, SHE ONLY TAKES IT NEEDED WHEN SHE FEELS HER HEART IS FLUTTERING. I CALLED [facility] IN [place] AND VERIFIED WHAT IS SHOWN ON THE EXT MED HX IS ACCURATE. PATIENT FILLED METOPROLOL TARTRATE 50MG BID #60 10-30-18 - SHE STATES SHE TAKES 1 NEEDED, SHE NEVER TAKES MORE THAN ONE IN A DAY.
[2018-11-15 13:55] LABS: BAND NEUTROPHILS 0 %; BASOPHILS % (MANUAL) 0 %; EOSINOPHILS % (MANUAL) 1 %; LYMPHOCYTES % (MANUAL) 24 %; MONOCYTES % (MANUAL) 2 %; NEUTROPHILS % (MANUAL) 73 %; RBC MORPH NORMAL
[2018-11-15 13:59] LABS: ALANINE AMINOTRANSFERASE 26 U/L (0-55); ALBUMIN 2.6 GM/DL (3.2-4.5); ALKALINE PHOSPHATASE 102 U/L (40-136); BILIRUBIN,TOTAL 0.9 MG/DL (0.1-1.0); BUN/CREATININE RATIO 32; CALCIUM 7.7 MG/DL (8.5-10.1); CARBON DIOXIDE 18 MMOL/L (21-32); CHLORIDE 118 MMOL/L (98-107); CREATININE SERUM 1.21 MG/DL (0.60-1.30); GFR ESTIMATED 43; GLUCOSE 102 MG/DL (70-105); MAGNESIUM 1.7 MG/DL (1.8-2.4); PHOSPHORUS 1.6 MG/DL (2.3-4.7); SODIUM 142 MMOL/L (135-145); TOTAL PROTEIN 5.9 GM/DL (6.4-8.2)
--- NOTE | 2018-11-15 14:30 | Consultation-Cardiology ---
HPI-Cardiology Cardiology Consultation: Date of Consultation 11/15/18 Date of Admission Attending Physician Traci Reeves DO Admitting Physician Severo Ramirez MD Consulting Physician Torie LARKIN MD HPI: Time Seen by a Provider: 14:30 Chief Complaint: Atrial fibrillation This is a 78-year-old lady who was transferred to [facility] due to atrial fibrillation with rapid ventricular response and hypotension. There is a concern about sepsis as well. She was started on amiodarone infusion. When I saw the patient she was not complaining of any significant palpitations. She is on treatment for UTI with broad-spectrum antibiotics. She complained of abdominal discomfort. She denies any other cardiac complaints including shortness of breath, syncope, near-syncope and chest pain. Review of Systems-Cardiology Review of Systems Constitutional: As described under HPI; No As described under HPI, No no symptoms reported, No chills, No fever, No lightheadedness Eyes: No As described under HPI, No no symptoms reported, No blindness, No blurred vision, No contact lenses, No drainage, No decreased acuity, No foreign body sensation, No pain, No vision change Ears/Nose/Throat: No As described under HPI, No no symptoms reported, No chronic hearing loss, No ear discharge, No ear pain, No nasal drainage, No ulcerations Respiratory: No no symptoms reported; As described under HPI; No As described under HPI, No cough, No orthopnea, No shortness of breath, No SOB with excertion Cardiovascular: No no symptoms reported; As described under HPI; No As described under HPI, No chest pain, No edema, No irregular heart rate, No lightheadedness; palpitations Gastrointestinal: No no symptoms reported, No As described under HPI, No abdomen distended; abdominal pain; No blood streaked bowels, No constipation, No diarrhea, No nausea, No vomiting, No stool coloration changes Genitourinary: No As described under HPI, No burning, No dysuria, No discharge , No frequency, No flank pain, No hematuria, No urgency : Yes : No Musculoskeletal: No no symptoms reported, No As describe under HPI, No back pain, No gout, No joint pain, No joint swelling, No muscle pain, No muscle stiffness, No neck pain, No other Skin: No no symptoms reported, No As described under HPI, No change in color, No change in hair/nails, No dryness, No lesions, No lumps, No rash, No other, No skin related problems, No ulcerations, No rash on exposed areas, No ulcerations on exposed areas Psychiatric/Neurological: No anxiety, No depression, No seizure, No focal weakness, No syncope Hematologic: No bleeding abnormalities [id number] Hx Patient Social History Alcohol Use: Rarely Uses Recreational Drug Use: No Recent Foreign Travel: No Physical Abuse Screen: No Sexual Abuse: No Immunizations Up To Date Date of Pneumonia Vaccine: March 09, 2017 Date of Influenza Vaccine: Aug 15, 2018 Past Medical History PMH As described under Assessment. Allergies and Home Medications Allergies Coded Allergies: sulfamethoxazole (Verified Allergy, Unknown, 11/15/18) caused renal failure last time taken. trimethoprim (Verified Allergy, Unknown, 11/15/18) caused renal failure last time taken. Home Medications Metoprolol Tartrate 50 Mg Tablet, 50 MG PO DAILY PRN for HEART FLUTTER, ( Reported) Patient Home Medication List Home Medication List Reviewed: Yes Physical Exam-Cardiology Physical Exam Vital Signs/I&O 11/17/18 11/17/18 11/17/18 11/17/18 03:10 03:28 04:50 05:38 Temp 100.9 100.9 Pulse 144 142 144 Resp 16 B/P (MAP) 112/83 (93) Pulse Ox 94 O2 Delivery Room Air 11/17/18 11/17/18 11/17/18 11/17/18 05:44 05:50 07:09 08:00 Temp 97.0 Pulse 116 102 O2 Delivery Room Air 11/17/18 11/17/18 11/17/18 11/17/18 08:30 10:00 10:01 11:00 Temp 97.9 Pulse 113 107 112 112 Resp 20 35 B/P (MAP) 117/78 (91) 103/74 (84) 119/81 (94) Pulse Ox 94 95 O2 Delivery Room Air Room Air 11/17/18 11/17/18 12:00 12:45 Temp 99.7 Pulse Ox 97 O2 Delivery Room Air 11/17/18 00:00 Intake Total 1650 ml Output Total 1250 ml Balance 400 ml Capillary Refill : Constitutional: appears stated age, AAO x 3; No apparent distress; well- developed, well-nourished HEENT: PERRL; No normal ENT inspection, No TMs normal, No pharynx normal, No scleral icterus (R), No scleral icterus (L), No pale conjunctivae (R), No pale conjunctivae (L), No photophobia, No TM abnormal (R), No TM abnormal (L), No pharyngeal erythema, No tonsillar exudate, No other, No discharge, No EOMI; hearing is well preserved; No hard of hearing; oral hygience is good; No ulceration, No xanthelasmas are seen Neck: No non-tender, No full range of motion, No supple, No normal inspection, No carotid bruit, No limited range of motion, No lymphadenopathy (R), No lymphadenopathy (L), No tender lateral, No tender midline, No thyromegaly, No other; carotid pulses are 2 + bilaterally; No with good upstrokes Respiratory: No accessory muscle use, No respiratory distress, No chest tender , No chest expansion is symmetric; chest is bilaterally symmetric; No lungs clear to percussion; lungs clear to auscultation; No crackles, No rhonchi, No rales, No stridor, No wheezing, No pleural rub, No other Cardiovascular: regular rate-rhythm; No irregularly irregular, No extra beats, No parasternal heave is noted, No JVD, No edema, No bradycardia, No tachycardia , No point of maximal impulse, No cardiac thrills are palpable; S1 and S2; No gallop/S3, No gallop/S4, No diastolic murmur, No systolic murmur, No friction rub, No click, No other Gastrointestinal: No tender, No soft, No round, No distended, No pulsatile mass , No organomegaly, No guarding, No rebound, No tenderness, No hernia, No mass, No audible bowel sounds, No abnormal bowel sounds, No abdominal bruits, No spleenomegaly, No other Rectal: deferred Extremities: No normal range of motion, No non-tender, No normal inspection, No pedal edema, No calf tenderness, No normal capillary refill, No pelvis stable , No calf tenderness, No inflammation, No pedal edema, No slow capillary refill , No swelling, No other, No abrasion, No clubbing, No cyanosis, No ecchymosis, No laceration, No no lower extremity edema bilateral, No significant edema, No tenderness, No wound Neurologic/Psychiatric: no motor/sensory deficits, alert, normal mood/affect, oriented x 3, power is 5/5 both on sides Skin: No normal color, No warm/dry, No cyanosis, No cool, No diaphoresis, No damp, No ecchymosis, No jaundice, No mottled, No pallor, No rash, No tattoos/ piercings, No ulcerations, No rash on exposed areas, No ulcerations on exposed areas, No other Data Review Labs Laboratory Tests 11/17/18 04:50: White Blood Count 15.4H, Red Blood Count 4.04L, Hemoglobin 11.7, Hematocrit 36, Mean Corpuscular Volume 88, Mean Corpuscular Hemoglobin 29, Mean Corpuscular Hemoglobin Concent 33, Red Cell Distribution Width 14.2, Platelet Count 283, Mean Platelet Volume 9.5, Neutrophils (%) (Auto) 73, Lymphocytes (%) (Auto) 13, Monocytes (%) (Auto) 11, Eosinophils (%) (Auto) 2, Basophils (%) (Auto) 1, Neutrophils # (Auto) 11.3H, Lymphocytes # (Auto) 2.0, Monocytes # (Auto) 1.7H, Eosinophils # (Auto) 0.4H, Basophils # (Auto) 0.1, Sodium Level 138, Potassium Level 3.4L, Chloride Level 112H, Carbon Dioxide Level 15L, Anion Gap 11, Blood Urea Nitrogen 10, Creatinine 0.86, Estimat Glomerular Filtration Rate > 60, BUN/ Creatinine Ratio 12, Glucose Level 109H, Calcium Level 8.7, Phosphorus Level 2.3 , Magnesium Level 1.5L Microbiology 11/15/18 MRSA Screen - Final, Complete MRSA not isolated ECG Impression ECG Initial ECG Impression: Atrial Fibrillation w/RVR A/P-Cardiology Assessment/Admission Diagnosis Atrial fibrillation with rapid ventricular rate, Hypertension, UTI sepsis Plan Atrial fibrillation with rapid ventricular response, converted to sinus rhythm with amiodarone infusion. Patient will require oral anticoagulation. No rate controlling agent was given because of borderline hypertension. Request echocardiogram. UTI sepsis. Defer to Dr. Reeves. Thank you for your consultation. Please call me if you have any questions. Ryder Larkin MD, FACP, FACC, FSCAI, FHRS, CCDS Interventional Cardiology Cardiac Electrophysiology Vascular Medicine and Endovascular Interventions Clinical Quality Measures DVT/VTE Risk/Contraindication: Risk Factor Score Per Nursin RFS Level Per Nursing on Admit: 2=Moderate Torie LARKIN MD Nov 15, 2018 14:30
[2018-11-15] MEDS: NS IV 1000 ML 1,000 ML IV SCH ×3 (15:10→22:28)
[2018-11-15] MEDS: VANCOMYCIN INJECTION 1,000 MG in NS (IVPB) 250 ML IV SCH ×2 (15:16→23:05)
[2018-11-15] MEDS: AMIODARONE INJECTION 450 MG in D5W IV SOLUTION (EXCEL) 250 ML IV SCH (15:18)
--- NOTE | 2018-11-15 15:22 | Diagnostic Imaging Report ---
INDICATION: Rales. TIME OF EXAM: 02:38 p.m. Correlation is made with prior study from 03/09/2016. FINDINGS: Interstitial lung disease is again noted with slightly nodular component in the lower lobe similar to prior study. There is some increasing density identified in the left upper lobe laterally, not present on prior study. Developing mass cannot be entirely excluded. CT chest would be useful for further evaluation. No effusion or pneumothorax is seen. IMPRESSION: Chronic interstitial changes, as described. There is a new density in the left upper lobe. Developing mass cannot be excluded. CT chest is recommended. Dictated by: Dictated on workstation # [id number]
--- NOTE | 2018-11-15 15:42 | Pulmonary Consultation ---
History of Present Illness History of Present Illness Date of Consultation 11/15/18 15:34 Date of Admission Allergies and Home Medications Allergies Coded Allergies: sulfamethoxazole (Verified Allergy, Unknown, 11/15/18) caused renal failure last time taken. trimethoprim (Verified Allergy, Unknown, 11/15/18) caused renal failure last time taken. Home Medications Metoprolol Tartrate 50 Mg Tablet, 50 MG PO DAILY PRN for HEART FLUTTER, ( Reported) Past Ytwdfqd-Wgsbxy-Cjlfvx Hx Patient Social History Alcohol Use: Rarely Uses Number of Drinks Today: 1 Alcohol Beverage of Choice: Beer Recreational Drug Use: No Former Smoker, Quit: Oct 30, 1995 Recent Foreign Travel: No Contact w/Someone Who Travel: No Immunizations Up To Date Date of Pneumonia Vaccine: March 09, 2017 Date of Influenza Vaccine: Aug 15, 2018 Sepsis Event Evaluation Height, Weight, BMI Height: 5'3.00" Weight: 137lbs. 4.0oz. 62.990206wp; 24.3 BMI Method: Exam Exam Vital Signs Date Time Temp Pulse Resp B/P (MAP) Pulse Ox O2 Delivery O2 Flow Rate FiO2 11/15/18 15:00 65 28 98/61 (73) 99 Nasal Cannula 2.00 11/15/18 14:15 69 21 119/69 (86) 99 Nasal Cannula 2.00 11/15/18 14:08 67 11/15/18 14:00 67 15 96/89 (91) 98 Nasal Cannula 2.00 11/15/18 13:45 67 16 100/58 (72) 99 Nasal Cannula 2.00 11/15/18 13:30 101 10 86/73 (77) 98 Nasal Cannula 2.00 11/15/18 13:15 83 7 102/94 (97) 98 Nasal Cannula 2.00 11/15/18 13:04 76 Height & Weight Height: 5'3.00" Weight: 137lbs. 4.0oz. 62.982367ky; 24.3 BMI Method: Results Lab Laboratory Tests 11/15/18 13:20 Assessment/Plan Assessment/Plan Pneumonia with sepsis r/o mass hx of pseudomonus from bronchoscopy -Check CT of chest -Continue Merrem and vanco -Lam culture -Check MRSA swab Hypokalemia, hypophosphatemia, hypomagnesium -replace Metabolic nonanion gap acidosis -IVF and monitor Hypotension -IVF UpDate: pt refused CT of chest. After I left the room pt told RN she does not want me to see her again. I am going to sign off. Please call with any questions or concerns. SANDOR WAYNE DO Nov 15, 2018 15:42
[2018-11-15] MEDS ORDERED: POTASSIUM PHOSPHATE INJ 30 MM in NS IV 500 ML 500 ML IV ONE (15:45)
[2018-11-15] MEDS ORDERED: KCL 10 MEQ TAB (MICRO K) PO NR (15:45)
[2018-11-15] MEDS: MAGNESIUM 1 GM/100 ML IVPB 100 ML IV SCH ×2 (16:57→17:01)
--- NOTE | 2018-11-15 17:00 | NUR ---
PT REFUSED DR WAYNE'S SERVICES. DR WAYNE AND DR JAMISON NOTIFIED.
[2018-11-15] MEDS: MEROPENEM 500 MG in NS (IVPB) 100 ML IV SCH (18:25)
--- NOTE | 2018-11-15 18:51 | NUR ---
PT ARRIVES WITH FULL LITER OF NORMAL SALINE SO 2 LITERS OF NORMAL SALINE NON ADMIN ON DEC.
--- NOTE | 2018-11-15 18:59 | NUR ---
CT OF CHEST DISCONTINUED BY DR JAMISON DUE TO PREVIOUS LABS BUN AND CREATININE ELEVATED AT [facility]. SHE WILL RE EVALUATE FURTHER CONDITION IMPROVES.
--- NOTE | 2018-11-15 19:21 | Progress Note-Hospitalist ---
Progress Note Patient was admitted [place] [facility] [place] [facility] for severe UTI with leukocytosis but then had episode of AF w/RVR and refractory hypotension but not from sepsis. Pt placed on Meropenem and Vanc empirically due to h/o resistant UTI. Dr Larkin recommended Amiodarone drip which was tolerated well but required transfer to higher level for Cardiology care. ECHO normal EF. Pt converted 2 hours after arrival to [facility]. Patient and daughters updated at bedside at 1745. SUNIL JAMISON DO Nov 15, 2018 19:21
[2018-11-15] MEDS: RT-ALBUTEROL/IPRATROPIUM 3 ML (DUONEB) VIAL INH SCH ×2 (20:13→23:00)
[2018-11-15] MEDS: APIXABAN 5 MG (ELIQUIS) TABLET PO SCH (21:24)
--- NOTE | 2018-11-15 22:46 | NUR ---
THIS RN SPOKE TO PHARMACY ABOUT VANCOMYCIN DOSE AND FREQUENCY, PHARMACIST OKAYED TO ADMINISTER 2300 DOSE.
[2018-11-15] MEDS: ACETAMINOPHEN 500 MG TAB (TYLENOL) PO PRN (23:10)
[2018-11-16] VITALS (19 sets, daily range): BP systolic 83–157; BP diastolic 46–94
[2018-11-16] MEDS: MEROPENEM 500 MG in NS (IVPB) 100 ML IV SCH (01:27)
[2018-11-16] MEDS: RT-ALBUTEROL/IPRATROPIUM 3 ML (DUONEB) VIAL INH SCH ×4 (02:14→10:47)
[2018-11-16] MEDS: AMIODARONE INJECTION 450 MG in D5W IV SOLUTION (EXCEL) 250 ML IV SCH (03:52)
[2018-11-16 03:56] LABS: BASOPHILS % (AUTO) 0 % (0-10); EOSINOPHILS # (AUTO) 0.1 10^3/uL (0.0-0.3); EOSINOPHILS % (AUTO) 1 % (0-10); HEMATOCRIT 31 % (35-52); HEMOGLOBIN 10.2 G/DL (11.5-16.0); LYMPHOCYTES % (AUTO) 12 % (12-44); MEAN CORPUSCULAR HEMOGLOBIN 30 PG (25-34); MEAN CORPUSCULAR HGB CONC 33 G/DL (32-36); MEAN CORPUSCULAR VOLUME 90 FL (80-99); MEAN PLATELET VOLUME 9.3 FL (7.4-10.4); MONOCYTES # (AUTO) 1.6 X 10^3 (0.0-1.0); MONOCYTES % (AUTO) 10 % (0-12); NEUTROPHILS # (AUTO) 12.1 X 10^3 (1.8-7.8); NEUTROPHILS % (AUTO) 77 % (42-75); PLATELET COUNT 213 10^3/uL (130-400); RED BLOOD COUNT 3.43 10^6/uL (4.35-5.85); RED CELL DISTRIBUTION WIDTH 14.6 % (10.0-14.5); WHITE BLOOD COUNT 15.7 10^3/uL (4.3-11.0)
[2018-11-16 04:16] LABS: ALBUMIN 2.4 GM/DL (3.2-4.5); BILIRUBIN,TOTAL 0.7 MG/DL (0.1-1.0); CALCIUM 7.7 MG/DL (8.5-10.1); CREATININE SERUM 0.99 MG/DL (0.60-1.30); POTASSIUM 4.1 MMOL/L (3.6-5.0); TOTAL PROTEIN 5.4 GM/DL (6.4-8.2)
[2018-11-16 04:20] LABS: PHOSPHORUS 2.5 MG/DL (2.3-4.7)
[2018-11-16 04:37] LABS: CREATININE SERUM 0.99 MG/DL (0.60-1.30); POTASSIUM 4.1 MMOL/L (3.6-5.0)
[2018-11-16 04:38] LABS: CALCIUM 7.7 MG/DL (8.5-10.1)
[2018-11-16] MEDS: NS IV 1000 ML 1,000 ML IV SCH ×3 (06:28→16:47)
[2018-11-16] MEDS: APIXABAN 5 MG (ELIQUIS) TABLET PO SCH ×2 (08:21→21:19)
--- NOTE | 2018-11-16 08:46 | Diagnostic Imaging Report ---
INDICATION: Atrial fibrillation. TECHNIQUE: A frontal chest was obtained at 0330 hours. COMPARISON: 11/15/2018. FINDINGS: The heart is normal in size. There is central vascular congestion with some interstitial edema. There are patchy bilateral infiltrates with some mild worsening at the right base compared to the prior study. Density in the left upper lobe, which has a more nodular configuration, appears about the same as yesterday. Continued followup is recommended. IMPRESSION: Patchy bilateral infiltrates are present with mild worsening in the right base compared to the prior study. There is central vascular congestion with interstitial edema. The density in the left upper lobe, which has a more nodular configuration, has not changed compared to yesterday. Continued followup is recommended. Dictated by: Dictated on workstation # [id number]
[2018-11-16] MEDS ORDERED: MEROPENEM 500 MG in NS (IVPB) 100 ML IV SCH (09:00)
--- NOTE | 2018-11-16 09:49 | History & Physical-Hospitalist ---
History of Present Illness HPI/Chief Complaint CC: AF w/RVR with hypotension HPI: this is a 78-year-old white female patient from [place] of Dr. Mcgregor who presents to via [facility] ICU due to atrial fibrillation with rapid ventricular response with hypotension in need of cardiology and ICU care transferred from [facility]. She is placed on amiodarone drip and 2 hours after arrival converted to normal sinus rhythm. She has a history of paroxysmal atrial fibrillation of which she takes metoprolol as needed on a rare occasion when she has palpitations. She had been placed on vancomycin and meropenem due to UTI expected to be resistant. Urology has been consulted per her request for recurrent UTIs. Patient is doing well and likely be able to transfer to the floor today. Source: patient Exam Limitations: no limitations Date Seen 11/16/18 Time Seen by a Provider: 09:00 Attending Physician Traci Jamison DO PCP Severo Ramirez MD Referring Physician Date of Admission Nov 15, 2018 at 12:55 Home Medications & Allergies Home Medications Reviewed patient Home Medication Reconciliation performed by pharmacy medication reconciliations industrial service technician and/or nursing. Patients Allergies have been reviewed. Allergies Allergies Coded Allergies sulfamethoxazole (Verified Allergy, Unknown, 11/15/18) caused renal failure last time taken. trimethoprim (Verified Allergy, Unknown, 11/15/18) caused renal failure last time taken. Past Jxycoyx-Yzswno-Mkxlck Hx Past Med/Social Hx: Reviewed Nursing Past Med/Soc Hx, Reviewed and Corrections made Patient Social History Marrital Status: single Employed/Student: retired Alcohol Use: Rarely Uses Number of Drinks Today: 1 Alcohol Beverage of Choice: Beer Recreational Drug Use: No Former Smoker, Quit: Oct 30, 1995 Physical Abuse Screen: No Sexual Abuse: No Recent Foreign Travel: No Contact w/other who traveled: No Recent Hopitalizations: Yes Immunizations Up To Date Date of Pneumonia Vaccine: March 09, 2017 Date of Influenza Vaccine: Aug 15, 2018 Seasonal Allergies Seasonal Allergies: No Past Medical History Respiratory: COPD Currently Using CPAP: No Currently Using BIPAP: No Cardiac: Atrial Fibrillation Genitourinary: Bladder Infection, UTI-Chronic Musculoskeletal: Arthritis History of Blood Disorders: No Adverse Reaction to Blood Simpson: No Review of Systems Constitutional: see HPI, dizziness, malaise, weakness EENTM: no symptoms reported Respiratory: cough Cardiovascular: palpitations Gastrointestinal: no symptoms reported Genitourinary: no symptoms reported Musculoskeletal: no symptoms reported Skin: no symptoms reported Psychiatric/Neurological: No Symptoms Reported All Other Systems Reviewed Negative Unless Noted: Yes Physical Exam Physical Exam Vital Signs Vital Signs - First Documented 11/15/18 11/15/18 11/15/18 13:04 13:15 20:00 Temp 97.2 Pulse 76 Resp 7 B/P (MAP) 102/94 (97) Pulse Ox 98 O2 Delivery Nasal Cannula O2 Flow Rate 2.00 Capillary Refill : Height, Weight, BMI Height: 5'3.00" Weight: 154lbs. 2.0oz. 69.809904fr; 24.3 BMI Method: General Appearance: No Apparent Distress, WD/WN, Chronically ill, Thin Eyes: Bilateral Eye Normal Inspection, Bilateral Eye PERRL HEENT: PERRL/EOMI, Normal ENT Inspection, Pharynx Normal Neck: Full Range of Motion, Normal Inspection, Non Tender, Supple, Carotid Bruit Respiratory: Chest Non Tender, Lungs Clear, Normal Breath Sounds, No Accessory Muscle Use, No Respiratory Distress Cardiovascular: Regular Rate, Rhythm, No Edema, No Gallop, No JVD, No Murmur, Normal Peripheral Pulses Gastrointestinal: Normal Bowel Sounds, No Organomegaly, No Pulsatile Mass, Non Tender, Soft Back: Normal Inspection, No CVA Tenderness, No Vertebral Tenderness Extremity: Normal Capillary Refill, Normal Inspection, Normal Range of Motion, Non Tender, No Calf Tenderness, No Pedal Edema Neurologic/Psychiatric: Alert, Oriented x3, No Motor/Sensory Deficits, Normal Mood/Affect Skin: Normal Color, Warm/Dry Lymphatic: No Adenopathy Results Results/Procedures Labs Laboratory Tests 11/15/18 13:20 11/16/18 03:30 Patient resulted labs reviewed. Assessment/Plan Admission Diagnosis Assessment: AF w/RVR Hypotension due to volume depletion ARF now resolved after fluids COPD sees Pulmonology in Recurrent UTI's consulting Urology Acute UTI sensitive to Ancef per UCx [facility] for will change to Rocephin due to infiltrates on CXR Anxiety Plan: Rocephin to narrow abx coverage Nebs IVF Monitor closely Admission Status: Inpatient Order (span 2 midnights) Reason for Inpatient Admission: AF w/RVR with hypotension and resistant UTI will require 3 days of hospital stay Diagnosis/Problems Diagnosis/Problems (1) Atrial fibrillation with rapid ventricular response Status: Acute (2) Infiltrate of lung present on chest x-ray Status: Acute (3) UTI (urinary tract infection) Status: Acute Qualifiers: Urinary tract infection type: acute cystitis Hematuria presence: without hematuria Qualified Codes: N30.00 - Acute cystitis without hematuria (4) Frailty Status: Acute (5) Acute renal failure (ARF) Status: Acute Qualifiers: Acute renal failure type: unspecified Qualified Codes: N17.9 - Acute kidney failure, unspecified (6) COPD (chronic obstructive pulmonary disease) Status: Chronic Qualifiers: COPD type: unspecified COPD Qualified Codes: J44.9 - Chronic obstructive pulmonary disease, unspecified (7) Hypotension Status: Acute Qualifiers: Hypotension type: unspecified hypotension type Qualified Codes: I95.9 - Hypotension, unspecified Clinical Quality Measures DVT/VTE Risk/Contraindication: Risk Factor Score Per Nursin RFS Level Per Nursing on Admit: 2=Moderate TRACI JAMISON DO Nov 16, 2018 09:49
[2018-11-16] MEDS ORDERED: RT-ALBUTEROL/IPRATROPIUM 3 ML (DUONEB) VIAL INH SCH (10:30)
[2018-11-16] MEDS ORDERED: RT-ALBUTEROL/IPRATROPIUM 3 ML (DUONEB) VIAL INH PRN ×2 (11:00)
--- NOTE | 2018-11-16 13:10 | Cardiology Progress Note ---
Cardiology SOAP Progress Note Subjective: No further cardiac symptoms. Objective: I&O/Vital Signs 11/17/18 11/17/18 11/17/18 11/17/18 03:10 03:28 04:50 05:38 Temp 100.9 100.9 Pulse 144 142 144 Resp 16 B/P (MAP) 112/83 (93) Pulse Ox 94 O2 Delivery Room Air 11/17/18 11/17/18 11/17/18 11/17/18 05:44 05:50 07:09 08:00 Temp 97.0 Pulse 116 102 O2 Delivery Room Air 11/17/18 11/17/18 11/17/18 11/17/18 08:30 10:00 10:01 11:00 Temp 97.9 Pulse 113 107 112 112 Resp 20 35 B/P (MAP) 117/78 (91) 103/74 (84) 119/81 (94) Pulse Ox 94 95 O2 Delivery Room Air Room Air 11/17/18 11/17/18 12:00 12:45 Temp 99.7 Pulse Ox 97 O2 Delivery Room Air 11/17/18 00:00 Intake Total 1650 ml Output Total 1250 ml Balance 400 ml Weight (Pounds): 154 Weight (Ounces): 2.0 Weight (Calculated Kilograms): 69.306340 Constitutional: No appears stated age; AAO x 3; No apparent distress, No PERRL , No well-developed, No well-nourished, No other Respiratory: No accessory muscle use, No respiratory distress, No chest tender , No chest expansion is symmetric; chest is bilaterally symmetric; No lungs clear to percussion; lungs clear to auscultation; No crackles, No rhonchi, No rales, No stridor, No wheezing, No pleural rub, No other Cardiovascular: regular rate-rhythm; No irregularly irregular, No extra beats, No parasternal heave is noted, No JVD, No edema, No bradycardia, No tachycardia , No point of maximal impulse, No cardiac thrills are palpable; S1 and S2; No gallop/S3, No gallop/S4, No diastolic murmur, No systolic murmur, No friction rub, No click, No other Gastrointestional: No tender, No soft, No round, No distended, No pulsatile mass, No organomegaly, No guarding, No rebound, No tenderness, No hernia, No mass, No audible bowel sounds, No abnormal bowel sounds, No abdominal bruits, No spleenomegaly, No other Extremities: No normal range of motion, No non-tender, No normal inspection, No pedal edema, No calf tenderness, No normal capillary refill, No pelvis stable , No calf tenderness, No inflammation, No pedal edema, No slow capillary refill , No swelling, No other, No abrasion, No clubbing, No cyanosis, No ecchymosis, No laceration, No no lower extremity edema bilateral, No significant edema, No tenderness, No wound Neurologic/Psychiatric: no motor/sensory deficits, alert, normal mood/affect, oriented x 3 Skin: No normal color, No warm/dry, No cyanosis, No cool, No diaphoresis, No damp, No ecchymosis, No jaundice, No mottled, No pallor, No rash, No tattoos/ piercings, No ulcerations, No rash on exposed areas, No ulcerations on exposed areas, No other Results/Procedures: Labs Laboratory Tests 11/17/18 04:50: White Blood Count 15.4H, Red Blood Count 4.04L, Hemoglobin 11.7, Hematocrit 36, Mean Corpuscular Volume 88, Mean Corpuscular Hemoglobin 29, Mean Corpuscular Hemoglobin Concent 33, Red Cell Distribution Width 14.2, Platelet Count 283, Mean Platelet Volume 9.5, Neutrophils (%) (Auto) 73, Lymphocytes (%) (Auto) 13, Monocytes (%) (Auto) 11, Eosinophils (%) (Auto) 2, Basophils (%) (Auto) 1, Neutrophils # (Auto) 11.3H, Lymphocytes # (Auto) 2.0, Monocytes # (Auto) 1.7H, Eosinophils # (Auto) 0.4H, Basophils # (Auto) 0.1, Sodium Level 138, Potassium Level 3.4L, Chloride Level 112H, Carbon Dioxide Level 15L, Anion Gap 11, Blood Urea Nitrogen 10, Creatinine 0.86, Estimat Glomerular Filtration Rate > 60, BUN/ Creatinine Ratio 12, Glucose Level 109H, Calcium Level 8.7, Phosphorus Level 2.3 , Magnesium Level 1.5L Microbiology 11/15/18 MRSA Screen - Final, Complete MRSA not isolated A/P: Assessment/Dx: Assessment/Admission Diagnosis Atrial fibrillation with rapid ventricular rate, Hypertension, UTI sepsis Plan: Plan Atrial fibrillation with rapid ventricular response, converted to sinus rhythm with amiodarone infusion. On oral anticoagulation. Echocardiogram done. UTI sepsis. Defer to Dr. Reeves. Thank you for your consultation. Please call me if you have any questions. Ryder Larkin MD, FACP, FACC, FSCAI, FHRS, CCDS Interventional Cardiology Cardiac Electrophysiology Vascular Medicine and Endovascular Interventions Focused Exam Lactate Level 11/15/18 13:20: Lactic Acid Level 0.90 Torie LARKIN MD Nov 16, 2018 13:10
--- NOTE | 2018-11-16 14:10 | CONSULTATION REPORT ---
DATE OF SERVICE: 11/16/2018 ATTENDING PHYSICIAN: Traci Reeves DO SUMMARY: A 78-year-old white lady admitted from [place] with heart issues. She was complaining that she has a problem with retention. She told the nursing staff that she will see me regularly, but she told me she saw me 20 years ago. She has a Nowak catheter at this point. I reviewed her chart at the office. I had seen her in 2011 where she was complaining of not emptying well with history of distal urethral stenosis and previous dilatation by Dr. Paige and Dr. Cervantes in [place]. She also was complaining of mixed urinary incontinence. She had a workup with urodynamics and cystoscopy. She had a positive Edison test, some small overactive bladder, grade II/III stress incontinence. Her postvoid residual at that time was 0. She had a 1+ cystocele, 1 to 2+ rectocele. ____ was performed easily. Cystoscopy was negative. We put her on Kegel exercises and VESIcare trial, but she never came back for followup. IMPRESSION: Voiding symptoms varying between incontinence and retention depending on the charts versus the patient saying. PLAN: Once Nowak catheter is not medically needed, we will remove it and we will manage accordingly. Job ID: [id number] DocumentID: [id number] Dictated Date: 11/16/2018 10:34:49 Pilates Instructor Date: 11/16/2018 12:48:30 Dictated By: MADDIE KIRK MD
[2018-11-16] MEDS: ACETAMINOPHEN 500 MG TAB (TYLENOL) PO PRN ×2 (16:40→22:07)
--- NOTE | 2018-11-16 19:25 | NUR ---
Transfered from ICU via WC to room 433 accompanied by MONIK Lazo. Awake and alert. UP to bathroom once in room. Family at bedside. Will continue to monitor.
[2018-11-16] MEDS ORDERED: TROUGH ORDER-PHARMACY XX NR (22:00)
[2018-11-17] VITALS (12 sets, daily range): BP systolic 103–136; BP diastolic 68–90
--- NOTE | 2018-11-17 03:11 | NUR ---
Dr. Larkin notified of increased tachycardia in the 140's to 150's (currently at 144). New orders rec for Amiodarone 200 mg po x 1 dose now & Cardizem CD 120 mg po x 1 dose now. Will continue to monitor heart rate.
[2018-11-17] MEDS ORDERED: AMIODARONE 200 MG (CORDARONE) TAB ONE ×2 (03:17→10:49)
[2018-11-17] MEDS ORDERED: DILTIAZEM 120 MG (CARDIZEM CD) CAP PO ONE ×2 (03:18→09:00)
[2018-11-17] MEDS: ACETAMINOPHEN 500 MG TAB (TYLENOL) PO PRN (03:28)
[2018-11-17 05:13] LABS: BASOPHILS # (AUTO) 0.1 10^3/uL (0.0-0.1); BASOPHILS % (AUTO) 1 % (0-10); EOSINOPHILS # (AUTO) 0.4 10^3/uL (0.0-0.3); EOSINOPHILS % (AUTO) 2 % (0-10); HEMATOCRIT 36 % (35-52); HEMOGLOBIN 11.7 G/DL (11.5-16.0); LYMPHOCYTES % (AUTO) 13 % (12-44); MEAN CORPUSCULAR HEMOGLOBIN 29 PG (25-34); MEAN CORPUSCULAR HGB CONC 33 G/DL (32-36); MEAN CORPUSCULAR VOLUME 88 FL (80-99); MEAN PLATELET VOLUME 9.5 FL (7.4-10.4); MONOCYTES # (AUTO) 1.7 X 10^3 (0.0-1.0); MONOCYTES % (AUTO) 11 % (0-12); NEUTROPHILS # (AUTO) 11.3 X 10^3 (1.8-7.8); NEUTROPHILS % (AUTO) 73 % (42-75); PLATELET COUNT 283 10^3/uL (130-400); RED BLOOD COUNT 4.04 10^6/uL (4.35-5.85); RED CELL DISTRIBUTION WIDTH 14.2 % (10.0-14.5); WHITE BLOOD COUNT 15.4 10^3/uL (4.3-11.0)
[2018-11-17 05:32] LABS: BUN/CREATININE RATIO 12; CALCIUM 8.7 MG/DL (8.5-10.1); CARBON DIOXIDE 15 MMOL/L (21-32); CHLORIDE 112 MMOL/L (98-107); CREATININE SERUM 0.86 MG/DL (0.60-1.30); GFR ESTIMATED > 60; GLUCOSE 109 MG/DL (70-105); MAGNESIUM 1.5 MG/DL (1.8-2.4); PHOSPHORUS 2.3 MG/DL (2.3-4.7); POTASSIUM 3.4 MMOL/L (3.6-5.0); SODIUM 138 MMOL/L (135-145)
[2018-11-17] MEDS ORDERED: meTOprolol 5 MG/5 ML (LOPRESSOR) VIAL ONE (05:32)
[2018-11-17] MEDS: meTOprolol 5 MG/5 ML (LOPRESSOR) VIAL IV SCH ×5 (05:38→20:54)
--- NOTE | 2018-11-17 05:38 | NUR ---
Dr. Larkin notified of continued heart rate in 140's. New order rec to for Lopressor IV q 4 hr for hr greater than 120. Start now. Will continue to monitor.
[2018-11-17] MEDS ORDERED: KCL 10 MEQ TAB (MICRO K) PO NR (07:15)
[2018-11-17] MEDS ORDERED: AMIODARONE 200 MG (CORDARONE) TAB PO ONE (09:00)
--- NOTE | 2018-11-17 09:00 | NUR ---
Pt. heart rate remaining in the 110s-120s. This RN notified of two second pauses on telemetry. Dr. Larkin notified and requests patient be given lopressor IV and to be moved to ICU.
[2018-11-17] MEDS: APIXABAN 5 MG (ELIQUIS) TABLET PO SCH ×2 (09:07→20:55)
--- NOTE | 2018-11-17 09:50 | NUR ---
Dr. Reeves notified of Pt. transfer.
--- NOTE | 2018-11-17 10:55 | Diagnostic Imaging Report ---
INDICATION: Pneumonia. COMPARISON: 11/16/2018 TECHNIQUE: 2 radiographs of the chest dated 11/17/2018 FINDINGS: The cardiac silhouette is within normal limits in size. Minimal central pulmonary vascular congestion appear similar. Bilateral interstitial and airspace opacities are again identified, right greater than left. These have minimally improved since the prior examination. More focal nodular density overlying the left mid and upper lung appears slightly improved though partially obscured. No new focal pulmonary opacity. Small bibasilar pleural effusions. No pneumothorax. Osseous structures are stable. Surgical clips within right upper quadrant of the abdomen. IMPRESSION: Minimally improved bilateral pulmonary infiltrates with associated small bibasilar pleural effusions. Persistent nodular density overlying the left mid to upper lung. Recommend continued radiographic followup to ensure this is not related to an underlying pulmonary nodule. Dictated by: Dictated on workstation # [id number]
[2018-11-17] MEDS ORDERED: AMIODARONE 200 MG (CORDARONE) TAB PO SCH ×2 (11:00→11:15)
[2018-11-17] MEDS ORDERED: AMIODARONE 200 MG (CORDARONE) TAB PO NR (11:15)
--- NOTE | 2018-11-17 11:59 | Progress Note-Urology ---
Progress Note-Urology Progress Notes/Assess & Plan Progress/Assessment & Plan BACK TO ICU FOR A.FIB. VOIDING ON OWN. CHECK PVR TODAY Final Diagnosis URINE RETENTION MADDIE KIRK MD Nov 17, 2018 11:59
--- NOTE | 2018-11-17 12:50 | Progress Note-Hospitalist ---
Subjective HPI/CC On Admission Date Seen by Provider: Nov 17, 2018 Time Seen by Provider: 11:30 CC: AF w/RVR with hypotension HPI: this is a 78-year-old white female patient from [place] of Dr. Mcgregor who presents to [facility] ICU due to atrial fibrillation with rapid ventricular response with hypotension in need of cardiology and ICU care transferred from [facility]. She is placed on amiodarone drip and 2 hours after arrival converted to normal sinus rhythm. She has a history of paroxysmal atrial fibrillation of which she takes metoprolol as needed on a rare occasion when she has palpitations. She had been placed on vancomycin and meropenem due to UTI expected to be resistant. Urology has been consulted per her request for recurrent UTIs. Patient is doing well and likely be able to transfer to the floor today. Subjective/Events-last exam Required transfer back to the ICU this morning for rapid ventricular response of atrial fibrillation Patient is asymptomatic Blood pressure remains stable and good Denies any pain Urology consultation reviewed and conferred with Catheter was discontinued and she does have some dysuria when she is about to start the urinary stream Denies any pain or shortness of breath Review of Systems General: Fatigue Genitourinary: Dysuria Focused Exam Lactate Level 11/15/18 13:20: Lactic Acid Level 0.90 Objective Exam Vital Signs Vital Signs Date Time Temp Pulse Resp B/P (MAP) Pulse Ox O2 Delivery O2 Flow Rate FiO2 11/17/18 12:45 97 Room Air 11/17/18 12:00 99.7 11/17/18 11:00 112 35 119/81 (94) 11/16/18 11:39 1.00 Capillary Refill : General Appearance: No Apparent Distress, WD/WN, Chronically ill, Thin Respiratory: Chest Non Tender, Lungs Clear, Normal Breath Sounds, No Accessory Muscle Use, No Respiratory Distress Cardiovascular: No Edema, No Gallop, No JVD, No Murmur, Normal Peripheral Pulses, Irregularly Irregular, Tachycardia Neurologic/Psychiatric: Alert, Oriented x3, No Motor/Sensory Deficits, Normal Mood/Affect Results/Procedures Lab Laboratory Tests 11/17/18 04:50 Patient resulted labs reviewed. Assessment/Plan Assessment and Plan Assess & Plan/Chief Complaint Assessment: AF w/RVR recurrent requiring transfer back to ICU this am Hypotension due to volume depletion resolved ARF now resolved after fluids COPD sees Pulmonology in [place] Recurrent UTI's consulting Urology Acute UTI sensitive to Ancef per UCx [facility] for will change to Rocephin due to infiltrates on CXR Anxiety Plan: Rocephin to narrow abx coverage Nebs IVF Monitor closely Cardiology appreciated Diagnosis/Problems Diagnosis/Problems (1) Atrial fibrillation with rapid ventricular response Status: Acute (2) Infiltrate of lung present on chest x-ray Status: Acute (3) UTI (urinary tract infection) Status: Acute Qualifiers: Urinary tract infection type: acute cystitis Hematuria presence: without hematuria Qualified Codes: N30.00 - Acute cystitis without hematuria (4) Frailty Status: Acute (5) Acute renal failure (ARF) Status: Acute Qualifiers: Acute renal failure type: unspecified Qualified Codes: N17.9 - Acute kidney failure, unspecified (6) COPD (chronic obstructive pulmonary disease) Status: Chronic Qualifiers: COPD type: unspecified COPD Qualified Codes: J44.9 - Chronic obstructive pulmonary disease, unspecified (7) Hypotension Status: Acute Qualifiers: Hypotension type: unspecified hypotension type Qualified Codes: I95.9 - Hypotension, unspecified Clinical Quality Measures DVT/VTE Risk/Contraindication: Risk Factor Score Per Nursin RFS Level Per Nursing on Admit: 2=Moderate SUNIL JAMISON DO Nov 17, 2018 12:50
--- NOTE | 2018-11-17 13:25 | Cardiology Progress Note ---
Cardiology SOAP Progress Note Subjective: Events of overnight noted. Patient went back into atrial fibrillation with rapid ventricular rate. Objective: I&O/Vital Signs 11/17/18 11/17/18 11/17/18 11/17/18 03:10 03:28 04:50 05:38 Temp 100.9 100.9 Pulse 144 142 144 Resp 16 B/P (MAP) 112/83 (93) Pulse Ox 94 O2 Delivery Room Air 11/17/18 11/17/18 11/17/18 11/17/18 05:44 05:50 07:09 08:00 Temp 97.0 Pulse 116 102 O2 Delivery Room Air 11/17/18 11/17/18 11/17/18 11/17/18 08:30 10:00 10:01 11:00 Temp 97.9 Pulse 113 107 112 112 Resp 20 35 B/P (MAP) 117/78 (91) 103/74 (84) 119/81 (94) Pulse Ox 94 95 O2 Delivery Room Air Room Air 11/17/18 11/17/18 12:00 12:45 Temp 99.7 Pulse Ox 97 O2 Delivery Room Air 11/17/18 00:00 Intake Total 1650 ml Output Total 1250 ml Balance 400 ml Weight (Pounds): 144 Weight (Ounces): 12.8 Weight (Calculated Kilograms): 65.713443 Constitutional: No appears stated age; AAO x 3; No apparent distress, No PERRL , No well-developed, No well-nourished, No other Respiratory: No accessory muscle use, No respiratory distress, No chest tender , No chest expansion is symmetric; chest is bilaterally symmetric; No lungs clear to percussion; lungs clear to auscultation; No crackles, No rhonchi, No rales, No stridor, No wheezing, No pleural rub, No other Cardiovascular: irregularly irregular; No extra beats, No parasternal heave is noted, No JVD, No edema, No bradycardia, No tachycardia, No point of maximal impulse, No cardiac thrills are palpable; S1 and S2; No gallop/S3, No gallop/S4 , No diastolic murmur, No systolic murmur, No friction rub, No click, No other Gastrointestional: No tender, No soft, No round, No distended, No pulsatile mass, No organomegaly, No guarding, No rebound, No tenderness, No hernia, No mass, No audible bowel sounds, No abnormal bowel sounds, No abdominal bruits, No spleenomegaly, No other Extremities: No normal range of motion, No non-tender, No normal inspection, No pedal edema, No calf tenderness, No normal capillary refill, No pelvis stable , No calf tenderness, No inflammation, No pedal edema, No slow capillary refill , No swelling, No other, No abrasion, No clubbing, No cyanosis, No ecchymosis, No laceration, No no lower extremity edema bilateral, No significant edema, No tenderness, No wound Neurologic/Psychiatric: no motor/sensory deficits, alert, normal mood/affect, oriented x 3 Skin: No normal color, No warm/dry, No cyanosis, No cool, No diaphoresis, No damp, No ecchymosis, No jaundice, No mottled, No pallor, No rash, No tattoos/ piercings, No ulcerations, No rash on exposed areas, No ulcerations on exposed areas, No other Results/Procedures: Labs Laboratory Tests 11/17/18 04:50: White Blood Count 15.4H, Red Blood Count 4.04L, Hemoglobin 11.7, Hematocrit 36, Mean Corpuscular Volume 88, Mean Corpuscular Hemoglobin 29, Mean Corpuscular Hemoglobin Concent 33, Red Cell Distribution Width 14.2, Platelet Count 283, Mean Platelet Volume 9.5, Neutrophils (%) (Auto) 73, Lymphocytes (%) (Auto) 13, Monocytes (%) (Auto) 11, Eosinophils (%) (Auto) 2, Basophils (%) (Auto) 1, Neutrophils # (Auto) 11.3H, Lymphocytes # (Auto) 2.0, Monocytes # (Auto) 1.7H, Eosinophils # (Auto) 0.4H, Basophils # (Auto) 0.1, Sodium Level 138, Potassium Level 3.4L, Chloride Level 112H, Carbon Dioxide Level 15L, Anion Gap 11, Blood Urea Nitrogen 10, Creatinine 0.86, Estimat Glomerular Filtration Rate > 60, BUN/ Creatinine Ratio 12, Glucose Level 109H, Calcium Level 8.7, Phosphorus Level 2.3 , Magnesium Level 1.5L Microbiology 11/15/18 MRSA Screen - Final, Complete MRSA not isolated A/P: Assessment/Dx: Assessment/Admission Diagnosis Atrial fibrillation with rapid ventricular rate, Hypotension,. Concentric LVH, Moderate diastolic dysfunction, Moderate tricuspid regurgitation, Mild pulmonary hypertension UTI sepsis Plan: Atrial fibrillation with rapid ventricular rate, current atrial fibrillation. By mouth amiodarone. IV Lopressor. Few episodes off 2 second pauses noted. Hypotension, resolved. Echocardiogram shows normal LV function with moderate diastolic dysfunction. Concentric LVH. Moderate tricuspid regurgitation. Mild pulmonary hypertension. Concentric LVH, follow clinically. Moderate diastolic dysfunction, euvolemic. Moderate tricuspid regurgitation, although clinically. Mild pulmonary hypertension UTI sepsis, defer to Dr. Reeves. Thank you for your consultation. Please call me if you have any questions. Ryder Larkin MD, FACP, FACC, FSCAI, FHRS, CCDS Interventional Cardiology Cardiac Electrophysiology Vascular Medicine and Endovascular Interventions Focused Exam Lactate Level 11/15/18 13:20: Lactic Acid Level 0.90 Torie LARKIN MD Nov 17, 2018 13:25
[2018-11-18] VITALS: BP 140/69
[2018-11-18] MEDS: meTOprolol 5 MG/5 ML (LOPRESSOR) VIAL IV SCH ×4 (00:04→11:19)
[2018-11-18 03:34] LABS: BASOPHILS # (AUTO) 0.1 10^3/uL (0.0-0.1); BASOPHILS % (AUTO) 0 % (0-10); EOSINOPHILS # (AUTO) 0.4 10^3/uL (0.0-0.3); EOSINOPHILS % (AUTO) 3 % (0-10); HEMATOCRIT 32 % (35-52); HEMOGLOBIN 10.7 G/DL (11.5-16.0); LYMPHOCYTES # (AUTO) 3.1 X 10^3 (1.0-4.0); LYMPHOCYTES % (AUTO) 23 % (12-44); MEAN CORPUSCULAR HEMOGLOBIN 29 PG (25-34); MEAN CORPUSCULAR HGB CONC 33 G/DL (32-36); MEAN CORPUSCULAR VOLUME 89 FL (80-99); MONOCYTES # (AUTO) 1.5 X 10^3 (0.0-1.0); MONOCYTES % (AUTO) 11 % (0-12); NEUTROPHILS # (AUTO) 8.6 X 10^3 (1.8-7.8); NEUTROPHILS % (AUTO) 63 % (42-75); PLATELET COUNT 324 10^3/uL (130-400); RED BLOOD COUNT 3.65 10^6/uL (4.35-5.85); RED CELL DISTRIBUTION WIDTH 14.5 % (10.0-14.5); WHITE BLOOD COUNT 13.6 10^3/uL (4.3-11.0)
[2018-11-18 03:56] LABS: BUN/CREATININE RATIO 13; CALCIUM 8.4 MG/DL (8.5-10.1); CARBON DIOXIDE 18 MMOL/L (21-32); CHLORIDE 111 MMOL/L (98-107); CREATININE SERUM 0.89 MG/DL (0.60-1.30); GFR ESTIMATED > 60; GLUCOSE 100 MG/DL (70-105); MAGNESIUM 1.3 MG/DL (1.8-2.4); PHOSPHORUS 2.1 MG/DL (2.3-4.7); POTASSIUM 3.5 MMOL/L (3.6-5.0); SODIUM 138 MMOL/L (135-145)
[2018-11-18 04:00] VITALS: BP 134/72
[2018-11-18] MEDS ORDERED: KCL 10 MEQ TAB (MICRO K) PO SCH (07:00)
[2018-11-18 08:00] VITALS: BP 120/67
[2018-11-18] MEDS: APIXABAN 5 MG (ELIQUIS) TABLET PO SCH (09:01)
--- NOTE | 2018-11-18 11:39 | Progress Note-Urology ---
Progress Note-Urology Progress Notes/Assess & Plan Progress/Assessment & Plan PVR WAS O. MAIN UROLOGICAL PROBLEM IS MIXED INCONTINENCE, OAB, AND ISD, WE WILL SEE HER AT OFFICE POST DISCHARGE TO WORK IT UP. PLAN EXPLAINED TO PATIENT Final Diagnosis MIXED INCONTINENCE, OAB, AND ISD MADDIE KIRK MD Nov 18, 2018 11:39
[2018-11-18 11:59] VITALS: BP 128/69
[2018-11-18] MEDS ORDERED: RT-LEVALBUTEROL (XOPENEX) 1.25 MG/3 ML NEB NON-FORMULARY INH SCH (12:45)
[2018-11-18] MEDS ORDERED: AMIODARONE 200 MG (CORDARONE) TAB PO NR (12:45)
--- NOTE | 2018-11-18 12:46 | Progress Note-Hospitalist ---
Subjective HPI/CC On Admission Date Seen by Provider: Nov 18, 2018 Time Seen by Provider: 11:45 CC: AF w/RVR with hypotension HPI: this is a 78-year-old white female patient from [place] of Dr. Mcgregor who presents to [facility] ICU due to atrial fibrillation with rapid ventricular response with hypotension in need of cardiology and ICU care transferred from [facility]. She is placed on amiodarone drip and 2 hours after arrival converted to normal sinus rhythm. She has a history of paroxysmal atrial fibrillation of which she takes metoprolol as needed on a rare occasion when she has palpitations. She had been placed on vancomycin and meropenem due to UTI expected to be resistant. Urology has been consulted per her request for recurrent UTIs. Patient is doing well and likely be able to transfer to the floor today. Subjective/Events-last exam patient doing well Normal sinus rhythm at 80 Awaiting cardiology for disposition Doesn't really want to walk around Wheezes noted so we'll start on Xopenex Review of Systems Pulmonary: Cough Focused Exam Lactate Level Objective Exam Vital Signs Vital Signs Date Time Temp Pulse Resp B/P (MAP) Pulse Ox O2 Delivery O2 Flow Rate FiO2 11/18/18 11:59 98.7 78 20 128/69 (88) 92 Room Air 11/16/18 11:39 1.00 Capillary Refill : General Appearance: No Apparent Distress, WD/WN, Chronically ill Respiratory: Chest Non Tender, No Accessory Muscle Use, No Respiratory Distress , Crackles, Wheezing Cardiovascular: Regular Rate, Rhythm, No Edema, No Gallop, No JVD, No Murmur, Normal Peripheral Pulses Neurologic/Psychiatric: Alert, Oriented x3, No Motor/Sensory Deficits, Normal Mood/Affect Results/Procedures Lab Laboratory Tests 11/18/18 03:08 Patient resulted labs reviewed. Assessment/Plan Assessment and Plan Assess & Plan/Chief Complaint Assessment: AF w/RVR recurrent requiring transfer back to ICU this am Hypotension due to volume depletion resolved ARF now resolved after fluids COPD sees Pulmonology in now with crackles on exam so placed on Xopenex since Nebs before caused jittery feeling Recurrent UTI's consulting Urology and he will see her in f/u at clinic Acute UTI sensitive to Ancef per [facility]x [facility] for will change to Rocephin due to infiltrates on CXR Anxiety Plan: Rocephin to narrow abx coverage Nebs IVF Monitor closely Cardiology appreciated Dispo per Cardiology Diagnosis/Problems Diagnosis/Problems (1) Atrial fibrillation with rapid ventricular response Status: Acute (2) Infiltrate of lung present on chest x-ray Status: Acute (3) UTI (urinary tract infection) Status: Acute Qualifiers: Urinary tract infection type: acute cystitis Hematuria presence: without hematuria Qualified Codes: N30.00 - Acute cystitis without hematuria (4) Frailty Status: Acute (5) Acute renal failure (ARF) Status: Acute Qualifiers: Acute renal failure type: unspecified Qualified Codes: N17.9 - Acute kidney failure, unspecified (6) COPD (chronic obstructive pulmonary disease) Status: Chronic Qualifiers: COPD type: unspecified COPD Qualified Codes: J44.9 - Chronic obstructive pulmonary disease, unspecified (7) Hypotension Status: Acute Qualifiers: Hypotension type: unspecified hypotension type Qualified Codes: I95.9 - Hypotension, unspecified Clinical Quality Measures DVT/VTE Risk/Contraindication: Risk Factor Score Per Nursin RFS Level Per Nursing on Admit: 2=Moderate SUNIL JAMISON DO Nov 18, 2018 12:46
--- NOTE | 2018-11-18 13:58 | Cardiology Progress Note ---
Cardiology SOAP Progress Note Subjective: In sinus rhythm Objective: I&O/Vital Signs 11/18/18 11/18/18 11/18/18 11/18/18 04:00 07:00 08:00 09:00 Temp 99.0 Pulse 81 79 78 Resp 28 22 B/P (MAP) 134/72 (92) 120/67 (84) Pulse Ox 92 O2 Delivery Room Air Room Air Room Air 11/18/18 11:59 Temp 98.7 Pulse 78 Resp 20 B/P (MAP) 128/69 (88) Pulse Ox 92 O2 Delivery Room Air 11/18/18 00:00 Intake Total 400 ml Output Total 200 ml Balance 200 ml Weight (Pounds): 144 Weight (Ounces): 12.8 Weight (Calculated Kilograms): 65.418145 Constitutional: No appears stated age; AAO x 3; No apparent distress, No PERRL , No well-developed, No well-nourished, No other Respiratory: No accessory muscle use, No respiratory distress, No chest tender , No chest expansion is symmetric; chest is bilaterally symmetric; No lungs clear to percussion; lungs clear to auscultation; No crackles, No rhonchi, No rales, No stridor, No wheezing, No pleural rub, No other Cardiovascular: regular rate-rhythm; No extra beats, No parasternal heave is noted, No JVD, No edema, No bradycardia, No tachycardia, No point of maximal impulse, No cardiac thrills are palpable; S1 and S2; No gallop/S3, No gallop/S4 , No diastolic murmur, No systolic murmur, No friction rub, No click, No other Gastrointestional: No tender, No soft, No round, No distended, No pulsatile mass, No organomegaly, No guarding, No rebound, No tenderness, No hernia, No mass, No audible bowel sounds, No abnormal bowel sounds, No abdominal bruits, No spleenomegaly, No other Extremities: No normal range of motion, No non-tender, No normal inspection, No pedal edema, No calf tenderness, No normal capillary refill, No pelvis stable , No calf tenderness, No inflammation, No pedal edema, No slow capillary refill , No swelling, No other, No abrasion, No clubbing, No cyanosis, No ecchymosis, No laceration, No no lower extremity edema bilateral, No significant edema, No tenderness, No wound Neurologic/Psychiatric: no motor/sensory deficits, alert, normal mood/affect, oriented x 3 Skin: No normal color, No warm/dry, No cyanosis, No cool, No diaphoresis, No damp, No ecchymosis, No jaundice, No mottled, No pallor, No rash, No tattoos/ piercings, No ulcerations, No rash on exposed areas, No ulcerations on exposed areas, No other Results/Procedures: Labs Laboratory Tests 11/18/18 03:08: White Blood Count 13.6H, Red Blood Count 3.65L, Hemoglobin 10.7L, Hematocrit 32L , Mean Corpuscular Volume 89, Mean Corpuscular Hemoglobin 29, Mean Corpuscular Hemoglobin Concent 33, Red Cell Distribution Width 14.5, Platelet Count 324, Mean Platelet Volume 9.0, Neutrophils (%) (Auto) 63, Lymphocytes (%) (Auto) 23, Monocytes (%) (Auto) 11, Eosinophils (%) (Auto) 3, Basophils (%) (Auto) 0, Neutrophils # (Auto) 8.6H, Lymphocytes # (Auto) 3.1, Monocytes # (Auto) 1.5H, Eosinophils # (Auto) 0.4H, Basophils # (Auto) 0.1, Sodium Level 138, Potassium Level 3.5L, Chloride Level 111H, Carbon Dioxide Level 18L, Anion Gap 9, Blood Urea Nitrogen 12, Creatinine 0.89, Estimat Glomerular Filtration Rate > 60, BUN/ Creatinine Ratio 13, Glucose Level 100, Calcium Level 8.4L, Phosphorus Level 2.1L, Magnesium Level 1.3L Microbiology 11/15/18 MRSA Screen - Final, Complete MRSA not isolated A/P: Assessment/Dx: Assessment/Admission Diagnosis Atrial fibrillation with rapid ventricular rate, Sinus node dysfunction, Hypotension, resolved, Concentric LVH, Moderate diastolic dysfunction, Moderate tricuspid regurgitation, Mild pulmonary hypertension UTI sepsis Plan: Atrial fibrillation with rapid ventricular rate, current sinus rhythm. By mouth amiodarone. By mouth Lopressor. Continue oral anticoagulation. Sinus node dysfunction: Few episodes off 2 second pauses noted. Will require Holter monitor and event monitor as an outpatient. Hypotension, resolved. Echocardiogram shows normal LV function with moderate diastolic dysfunction. Concentric LVH. Moderate tricuspid regurgitation. Mild pulmonary hypertension. Concentric LVH, follow clinically. Moderate diastolic dysfunction, euvolemic. Moderate tricuspid regurgitation, although clinically. Mild pulmonary hypertension UTI sepsis, defer to Dr. Reeves. Patient to follow in the office as an outpatient. Thank you for your consultation. Please call me if you have any questions. Ryder Larkin MD, FACP, FACC, FSCAI, FHRS, CCDS Interventional Cardiology Cardiac Electrophysiology Vascular Medicine and Endovascular Interventions Torie LARKIN MD Nov 18, 2018 13:58
[2018-11-18] MEDS ORDERED: meTOprolol TARTRATE 25 MG (LOPRESSOR) TABLET PO SCH (14:00)
[2018-11-18] MEDS ORDERED: METO-333 PO (15:07)
[2018-11-18] MEDS ORDERED: AMIO200T4 PO (15:07)
[2018-11-18] MEDS ORDERED: APIX5TAB PO (15:07)
[2018-11-18] MEDS ORDERED: CEFD300C3 PO (15:07)
--- NOTE | 2018-11-18 15:09 | Discharge Summary-Hospitalist ---
Diagnosis/Chief Complaint Date of Admission Nov 15, 2018 at 12:55 Date of Discharge Discharge Date: Nov 18, 2018 Admission Diagnosis Assessment: AF w/RVR Hypotension due to volume depletion ARF now resolved after fluids COPD sees Pulmonology in Recurrent UTI's consulting Urology Acute UTI sensitive to Ancef per [facility]x [facility] for will change to Rocephin due to infiltrates on CXR Anxiety Plan: Rocephin to narrow abx coverage Nebs IVF Monitor closely Discharge Diagnosis (1) Atrial fibrillation with rapid ventricular response Status: Acute (2) Infiltrate of lung present on chest x-ray Status: Acute (3) UTI (urinary tract infection) Status: Acute (4) Frailty Status: Acute (5) Acute renal failure (ARF) Status: Acute (6) COPD (chronic obstructive pulmonary disease) Status: Chronic (7) Hypotension Status: Acute Discharge Summary Discharge Physical Exam Allergies: Coded Allergies: sulfamethoxazole (Verified Allergy, Unknown, 11/15/18) caused renal failure last time taken. trimethoprim (Verified Allergy, Unknown, 11/15/18) caused renal failure last time taken. Vitals & I&Os Vital Signs Date Time Temp Pulse Resp B/P (MAP) Pulse Ox O2 Delivery O2 Flow Rate FiO2 11/18/18 17:10 11/18/18 16:00 95 Room Air 11/18/18 15:46 98.4 71 11/18/18 11:59 20 11/16/18 11:39 1.00 General Appearance: No Apparent Distress, WD/WN, Chronically ill, Thin Respiratory: Chest Non Tender, No Accessory Muscle Use, No Respiratory Distress , Crackles Cardiovascular: Regular Rate, Rhythm, No Edema, No Gallop, No JVD, No Murmur, Normal Peripheral Pulses Hospital Course Was the Problem List Reviewed?: Yes Hospital course: patient had a lengthy and complex hospital course. Patient was placed in ICU due to AF w/RVR and hypotension. Amiodarone was initiated with Cardiology consultation along with fluids. IV abx maintained for resistant UTI with Vanc and Meropenem. Urology was consulted. Pt placed on anticoagulation for stroke prophylaxis. Pt maintained on Nebs but had side effects of jitteriness. Pt tolerated meds well and converted to NSR and was placed on PO Amiodarone with good results and moved to 4th floor. She was transferred back up to ICU due to AF w/RVR again and quickly converted to NSR with Amiodarone. Infiltrate on CXR was consistent with pneumonia so abx spectrum was narrowed and patient improved and UTI was treated along with pneumonia with PO abx at [place] along with new cardiac meds. Dr Jett will see the patient in his clinic for recurrent UTI. Labs (last 24 hrs) Laboratory Tests 11/18/18 03:08: White Blood Count 13.6H, Red Blood Count 3.65L, Hemoglobin 10.7L, Hematocrit 32L , Mean Corpuscular Volume 89, Mean Corpuscular Hemoglobin 29, Mean Corpuscular Hemoglobin Concent 33, Red Cell Distribution Width 14.5, Platelet Count 324, Mean Platelet Volume 9.0, Neutrophils (%) (Auto) 63, Lymphocytes (%) (Auto) 23, Monocytes (%) (Auto) 11, Eosinophils (%) (Auto) 3, Basophils (%) (Auto) 0, Neutrophils # (Auto) 8.6H, Lymphocytes # (Auto) 3.1, Monocytes # (Auto) 1.5H, Eosinophils # (Auto) 0.4H, Basophils # (Auto) 0.1, Sodium Level 138, Potassium Level 3.5L, Chloride Level 111H, Carbon Dioxide Level 18L, Anion Gap 9, Blood Urea Nitrogen 12, Creatinine 0.89, Estimat Glomerular Filtration Rate > 60, BUN/ Creatinine Ratio 13, Glucose Level 100, Calcium Level 8.4L, Phosphorus Level 2.1L, Magnesium Level 1.3L Microbiology 11/15/18 MRSA Screen - Final, Complete MRSA not isolated Patient resulted labs reviewed. Discussion & Recommendations Discharge Planning: <30 minutes discharge planning Discharge Home Medications: Active Scripts Active Cefdinir 300 Mg Capsule 300 Mg PO BID Metoprolol Tartrate 25 Mg Tablet 25 Mg PO BID Amiodarone HCl 200 Mg Tablet 200 Mg PO DAILY Eliquis (Apixaban) 5 Mg Tablet 5 Mg PO BID Instructions to patient/family Please see electronic discharge instructions given to patient. Clinical Quality Measures DVT/VTE Risk/Contraindication: Risk Factor Score Per Nursin RFS Level Per Nursing on Admit: 2=Moderate Problem Qualifiers (1) UTI (urinary tract infection): Urinary tract infection type: acute cystitis Hematuria presence: without hematuria Qualified Codes: N30.00 - Acute cystitis without hematuria (2) Acute renal failure (ARF): Acute renal failure type: unspecified Qualified Codes: N17.9 - Acute kidney failure, unspecified (3) COPD (chronic obstructive pulmonary disease): COPD type: unspecified COPD Qualified Codes: J44.9 - Chronic obstructive pulmonary disease, unspecified (4) Hypotension: Hypotension type: unspecified hypotension type Qualified Codes: I95.9 - Hypotension, unspecified SUNIL JAMISON DO Nov 18, 2018 15:09
[2018-11-18 15:46] VITALS: BP 125/67
[2018-11-19] MEDS ORDERED: AMIODARONE 200 MG (CORDARONE) TAB PO SCH (09:00)
--- NOTE | 2018-11-21 10:45 | Physician Query Clarification ---
PQ-Conflicting Diagnosis Admission/Discharge Admission Date: Nov 15, 2018 at 12:55 Discharge Date: Nov 18, 2018 at 17:10 The medical record reflects the following clinical scenario: History/Risk Factors: Paroxysmal atrial fibrillation, UTI, Pneumonia, Acute renal failure, hypotension d/t volume depletion Clinical Findings: T 97.2 11/15 > 101.9 11/16, P 101, R 7>33 11/15, WBC 15.9, Lactic acid .90 Treatment: IV Vancomycin, IV Meropenem Question: Do you agree with the impression of the UTI sepsis per Dr. Larkin. Please document a response below. PHYSICIAN RESPONSE Do you agree w/Consulting Dx?: Yes In responding to this query, please exercise your independent professional judgment. The purpose of this communication is to more accurately reflect the complexity of your patients condition. The fact that a question is asked does not imply that any particular answer is desired or expected. Thank you for your timely response to this clarification. Requestors name: Melonie THIS PHYSICIAN QUERY FORM IS A PERMANENT PART OF THE MEDICAL RECORD MELONIE QUINTANA Nov 21, 2018 10:45 SUNIL JAMISON DO Nov 21, 2018 14:07
== END 2018-11-18 17:10 | disposition home or self-care (01) | DRG 871 ==
LOC: ICU 12:55 → 4TH 11-16 19:37 → ICU 11-17 10:00
PROVIDERS: ADMIT Internal Medicine; ATTEND Internal Medicine
DX: A41.9 Sepsis, unspecified organism (principal); N30.00 Acute cystitis without hematuria; I48.0 Paroxysmal atrial fibrillation; J18.1 Lobar pneumonia, unspecified organism; N17.9 Acute kidney failure, unspecified; E86.9 Volume depletion, unspecified; I95.9 Hypotension, unspecified; J44.9 Chronic obstructive pulmonary disease, unspecified; F41.9 Anxiety disorder, unspecified; E87.6 Hypokalemia; E83.39 Other disorders of phosphorus metabolism; E83.42 Hypomagnesemia; R33.9 Retention of urine, unspecified; I07.1 Rheumatic tricuspid insufficiency; I27.20 Pulmonary hypertension, unspecified; N39.46 Mixed incontinence; N32.81 Overactive bladder; N36.42 Intrinsic sphincter deficiency (ISD); I49.5 Sick sinus syndrome; Z87.891 Personal history of nicotine dependence
CPT/HCPCS: 36415; 71045; 71046; 80048; 80053; 83605; 83735; 83880; 84100; 84484; 85007; 85025; 85027; 87081; 93306; 94640

== ENCOUNTER → 2019-01-04 | Outpatient (CLI) | payer MEDICARE, MEDICAID ==
[~2019-01-04] MED LIST changes: +AMIO200T4 PO; +APIX5TAB PO; +CEFD300C3 PO; +METO-333 PO; +METO50TA15 PO
--- NOTE | 2019-01-04 13:34 | Diagnostic Imaging Report ---
INDICATION: Chronic kidney disease, stage III. FINDINGS: The right kidney measures 9.5 x 4.2 x 4.2 cm and the left kidney measures 8.3 x 4.2 x 4.1 cm. The cortical thickness and echogenicity appear normal. No calculus or hydronephrosis is seen. Renal Doppler demonstrates the waveforms to be unremarkable. There is some velocity elevation in the right renal artery distally with a renal artery to aorta ratio of approximately 3.0. The renal artery to aorta ratios on the left are within normal limits. The pre and post void bladder volumes demonstrate a prevoid volume of 309 mL. No post void volume is seen. No bladder wall thickening or mass is seen. IMPRESSION: Essentially unremarkable renal ultrasound and renal Doppler with the exception of some velocity elevation in the distal right renal artery. A stenosis at this location could not be entirely excluded. CT angiography may be useful for further evaluation if the patient is able to receive IV contrast. Dictated by: Dictated on workstation # [id number]
== END ==
LOC: RAD 09:15
PROVIDERS: ATTEND Internal Medicine Nephrology
DX: I12.9 Hypertensive chronic kidney disease with stage 1 through stage 4 chronic kidney disease, or unspecified chronic kidney disease (principal); N18.3 Chronic kidney disease, stage 3 (moderate); E78.5 Hyperlipidemia, unspecified; N39.0 Urinary tract infection, site not specified; I48.91 Unspecified atrial fibrillation; J47.9 Bronchiectasis, uncomplicated
CPT/HCPCS: 76770; 93975

== ENCOUNTER 2019-01-24 14:48 | Emergency (ER) | payer MEDICARE, MEDICAID ==
[~2019-01-24] VITALS: Ht 160 cm; Wt 59.0 kg
--- OUTSIDE RECORDS SUMMARY | 2019-01-24 14:53 | XMS REPORT | Encounter Summary ---
Author Author [facility] Organization [facility] Address Unknown Phone Unavailable Care Team Providers Care Cad Manager Name Role Phone Jamison Ramirez MD PCP Encounter Details Care Team Description Date Type Department Haydee Agrawal MD [address] [facility] [address] [place] [address] 12/26/2018 Orders Only [facility] [address] [facility] [address] [place] [address] Social History Date Tobacco Use Types Packs/Day Years Used Quit: 06/13/1997 Former Smoker Cigarettes Smokeless Tobacco: Never Used Sex Assigned at Date Recorded Not on file Industry Job Start Date Occupation Not on file Not on file Not on file Travel End Travel History Travel Start No recent travel history available. documented as of this encounter Functional Status Date of Assessment Functional Status Response 08/29/2017 Does the patient have a hearing impairment: No documented as of this encounter Plan of Treatment Not on filedocumented as of this encounter Procedures Comments Procedure Name Priority Date/Time Associated Diagnosis URINALYSIS, COMPLETE 12/26/2018 11:45 AM NONDESTRUCTIVE TESTER TOTAL PROTEIN-URINE 12/26/2018 RANDOM 11:45 AM NONDESTRUCTIVE TESTER documented in this encounter Results * TOTAL PROTEIN-URINE RANDOM (12/26/2018 11:45 AM NONDESTRUCTIVE TESTER) Creatinine, 160 20 - 275 mg/dL [facility] Protein, Ran 50 21 - 161 mg/g creat [facility] mg/g CR [facility] Protein, Random 8 5 - 24 mg/dL [facility] Comment: DIAGNOSTICS REPORT COMMENT: SPLIT 12/12/2018 FROM [id number] FASTING:NO Test Performed at: [facility] [id number] [facility], [id number] LM PEDERSEN DO,MPH Performing Organization Address [facility] Phone Number Risk Ident [facility] [id number] [place] [address] * URINALYSIS, COMPLETE (12/26/2018 11:45 AM NONDESTRUCTIVE TESTER) Color,UA YELLOW YELLOW [facility] Turbidity,UA CLEAR CLEAR [facility] Specific 1.019 1.001 - 1.035 [facility] [place] pH,UA 6.0 5.0 - 8.0 [facility] Glucose,UA NEGATIVE NEGATIVE [facility] Bilirubin,UA NEGATIVE NEGATIVE [facility] Ketones,UA NEGATIVE NEGATIVE [facility] Blood,UA NEGATIVE NEGATIVE [facility] Protein,UA NEGATIVE NEGATIVE [facility] Nitrite,UA NEGATIVE NEGATIVE [facility] Leukocytes,UA 1+ (A) NEGATIVE [facility] WBCs,UA 0-5 < OR=5 /HPF [facility] RBCs,UA NONE SEEN < OR=2 /HPF [facility] Squamous 0-5 < OR=5 /HPF [facility] Cells Bacteria,UA NONE SEEN NONE SEEN /HPF [facility] Hyaline Cast NONE SEEN NONE SEEN /LPF [facility] Comment: DIAGNOSTICS Test Performed at: [facility] [id number] [facility], [id number] LM PEDERSEN DO,MPH Performing Organization Address [facility] Phone Number [facility] [phone] [place] [address] documented in this encounter Visit Diagnoses Not on filedocumented in this encounter
--- OUTSIDE RECORDS SUMMARY | 2019-01-24 14:53 | XMS REPORT | Encounter Summary ---
Author Author [facility] Organization [facility] Address Unknown Phone Unavailable Care Team Providers Care Online Media Buyer Name Role Phone Jamison Ramirez MD PCP Encounter Details Care Team Description Date Type Department Haydee Agrawal MD [address] Ortho/Med [place] [address] [place] [address] 12/12/2018 Orders Only [facility] [address] [facility] [address] [place] [address] Social History Date Tobacco Use [...] Comments Procedure Name Priority Date/Time Associated Diagnosis RENAL FUNCTION PANEL 12/12/2018 W/EGFR CBC AND DIFF 12/12/2018 LIPID PROFILE 12/12/2018 documented in this encounter Results * CBC AND DIFF (12/12/2018) White Blood 9.0 3.8 - 10.8 [facility] Cells Thousand/uL [facility]AG[facility] RBC 4.39 3.80 - 5.10 [facility] Million/uL [facility] Hemoglobin 13.0 11.7 - 15.5 g/dL [facility] Hematocrit 39.3 35.0 - 45.0 % [facility] MCV 89.5 80.0 - 100.0 fL [facility] MCH 29.6 27.0 - 33.0 pg [facility] MCHC 33.1 32.0 - 36.0 g/dL [facility] RDW 13.8 11.0 - 15.0 % [facility] Platelet Count 215 140 - 400 [facility] Thousand/uL [facility] MPV 9.8 7.5 - 12.5 fL [facility] Absolute 4248 1500 - 7800 cells/uL [facility] Neutrophil [facility] Count Absolute Lymph 3402 850 - 3900 cells/uL [facility] Count [facility] Absolute 837 200 - 950 cells/uL [facility] Monocyte Count [facility] Absolute 450 15 - 500 cells/uL [facility] Eosinophil [facility]ST[facility] Count Absolute 63 0 - 200 cells/uL [facility] Basophil Count DI[facility]NOSTICS Neutrophils 47.2 % [facility] Lymphocytes 37.8 % [facility] Monocytes 9.3 % [facility] Eosinophils 5.0 % [facility] Basophils 0.7 % [facility] Comment: [facility]AG[facility] REPORT COMMENT: FASTING:YES PATIENT UNABLE TO VOID; ADVISED TO RETURN FOR COLLECTION. Test Performed at: [facility] [address] [employer], [id number] LM PEDERSEN DO,MPH Performing Organization Address City/State/Zipcode Phone Number [facility] [address] [place] [address] * RENAL FUNCTION PANEL W/EGFR (12/12/2018) Glucose 100 (H) 65 - 99 mg/dL [facility] Comment: [facility]AGNOST[facility] Fasting reference interval For someone without known diabetes, a glucose value between 100 and 125 mg/dL is consistent with prediabetes and should be confirmed with a follow-up test. Blood Urea 21 7 - 25 mg/dL [facility] Nitrogen [facility] Creatinine 1.41 (H) 0.60 - 0.93 mg/dL [facility] Comment: DIAGNOSTICS For patients >49 years of age, the reference limit for Creatinine is approximately 13% higher for people identified as -Citizen Of [place]. eGFR Non 35 (L) > OR=60 [facility] mL/min/1.73m2 [facility]AGNOST[facility] Citizen [place] eGFR 41 (L) > OR=60 [facility] Citizen [place] mL/min/1.73m2 [facility]AGNOSTICS BUN/Creatinine 15 6 - 22 (calc) [facility] Ratio [facility] Sodium 142 135 - 146 mmol/L [facility] Potassium 3.5 3.5 - 5.3 mmol/L [facility] Chloride 107 98 - 110 mmol/L [facility] CO2 25 20 - 32 mmol/L [facility] Calcium 9.2 8.6 - 10.4 mg/dL [facility] Phosphorus 4.1 2.1 - 4.3 mg/dL [facility] Albumin 3.7 3.6 - 5.1 g/dL [facility] Comment: DIAGNOSTICS Test Performed at: [facility] [address] [facility] [employer], [id number] LM PEDERSEN DO,MPH Performing Organization Address [facility] Phone Number [facility] [address] [place] [address] * LIPID PROFILE (12/12/2018) Cholesterol 207 (H) <200 mg/dL [facility] HDL 34 (L) >50 mg/dL [facility] Triglycerides 223 (H) <150 mg/dL [facility] LDL 137 (H) mg/dL (calc) [facility] Comment: DIAG[facility]ST[facility] Reference range: <100 Desirable range <100 mg/dL for primary prevention; <70 mg/dL for patients with CHD or diabetic patients with > or=2 CHD risk factors. LDL-C is now calculated using the Mitchell-Mauri calculation, which is a validated novel method providing better accuracy than the Friedewald equation in the estimation of LDL-C. Mitchell SS et al. ALVERTO. 2013;310(19): 0924-2924 (http://education.MiCarga.C-nario/faq/ORE836) Cholesterol/HDL 6.1 (H) <5.0 (calc) [facility] Ratio [facility] Non HDL 173 (H) <130 mg/dL (calc) [facility] Cholesterol Comment: DIAGNOSTICS For patients with diabetes plus 1 major ASCVD risk factor, treating to a non-HDL-C goal of <100 mg/dL (LDL-C of <70 mg/dL) is considered a therapeutic option. Test Performed at: [facility] [address] [employer], [id number] LM PEDERSEN DO,MPH Performing Organization Address [facility] Phone Number [facility] [address] [place] [address] documented in this encounter Visit Diagnoses Not on filedocumented in this encounter
--- OUTSIDE RECORDS SUMMARY | 2019-01-24 14:53 | XMS REPORT | Clinical Summary ---
Author Author [facility] Organization [facility] Address Unknown Phone Unavailable Care Team Providers Care Manager Power Name Role Phone Jamison Ramirez MD PCP Source Comments Some departments are not documenting in the electronic medical record. If you do not see the information that you expected, contact Release of Information in the Health Information Management department at [phone] for further assistance in locating additional records.[facility] Allergies Comments Active Allergy Reactions Severity Noted [...] Description Date Type Specialty Haydee Agrawal MD 12/26/2018 Orders Only Pulmonology Haydee Agrawal MD 12/12/2018 Orders Only Pulmonology from Last 3 Months Family History Medical [...] Taken Vital Sign Reading 09/18/2018 11:36 AM ENRICHMENT ASSISTANT Blood Pressure 119/71 09/18/2018 11:36 AM ENRICHMENT ASSISTANT Pulse 103 09/18/2018 11:36 AM ENRICHMENT ASSISTANT Temperature 36.6 C (97.8 F) 09/18/2018 11:36 AM ENRICHMENT ASSISTANT Respiratory Rate 16 09/18/2018 11:36 AM ENRICHMENT ASSISTANT Oxygen Saturation 95% - Inhaled Oxygen - Concentration 09/18/2018 11:36 AM ENRICHMENT ASSISTANT Weight 62.6 kg (138 lb) 09/18/2018 11:36 AM ENRICHMENT ASSISTANT Height 160 cm (5' 3") 09/18/2018 11:36 AM ENRICHMENT ASSISTANT Body Mass Index 24.45 Plan of Treatment Health Maintenance Due Date Last Done Comments PHYSICAL (COMPREHENSIVE) 1947 EXAM DTAP/TDAP VACCINES (1 - 1957 Tdap) SHINGLES RECOMBINANT 1989 VACCINE (1 of 2) PNEUMONIA (PCV13/PPSV23) 2004 VACCINES (1 of 2 - PCV13) INFLUENZA VACCINE 05/30/2018 OSTEOPOROSIS Completed 10/10/2017 SCREENING/MONITORING Procedures Comments Procedure Name Priority Date/Time Associated Diagnosis TOTAL PROTEIN-URINE 12/26/2018 RANDOM 11:45 AM ENRICHMENT ASSISTANT URINALYSIS, COMPLETE 12/26/2018 11:45 AM ENRICHMENT ASSISTANT CBC AND DIFF 12/12/2018 RENAL FUNCTION PANEL 12/12/2018 W/EGFR LIPID PROFILE 12/12/2018 from Last 3 Months Results * URINALYSIS, COMPLETE (12/26/2018 11:45 AM ENRICHMENT ASSISTANT) Color,UA YELLOW YELLOW [facility] Turbidity,UA CLEAR CLEAR [facility] Specific 1.019 1.001 - 1.035 [facility] [place] pH,UA 6.0 5.0 - 8.0 [facility] [...] /LPF [facility] Comment: DIAGNOSTICS Test Performed at: [facility] [address], [id number] LM PEDERSEN DO,MPH Performing Organization Address [facility] Phone Number [employer] [phone] [place] [address] * TOTAL PROTEIN-URINE RANDOM (12/26/2018 11:45 AM ENRICHMENT ASSISTANT) Creatinine, 160 20 - 275 mg/dL [facility] Protein, Ran 50 21 - 161 mg/g creat [facility] mg/g CR [facility]NOST[facility] Protein, Random 8 5 - 24 mg/dL [facility] Comment: DIAGNOSTICS REPORT COMMENT: SPLIT 12/12/2018 FROM [id number] FASTING:NO Test Performed at: [facility] [address] [employer], [id number] LM PEDERSEN DO,MPH Performing Organization Address [facility] Phone Number [employer] [phone] [place] [address] * RENAL FUNCTION PANEL W/EGFR (12/12/2018) Glucose [...] approximately 13% higher for people identified as -Dominican. eGFR Non 35 (L) > OR=60 [facility] mL/min/1.73m2 DIAGNOSTICS Dominican eGFR 41 (L) > OR=60 [facility] Dominican mL/min/1.73m2 DIAGNOSTICS BUN/Creatinine 15 6 - 22 [...] g/dL [facility] Comment: DIAGNOSTICS Test Performed at: [facility] [address] [facility], [id number] LM PEDERSEN DO,MPH Performing Organization Address [facility] Phone Number [employer] [phone] [place] [address] * CBC AND DIFF (12/12/2018) White Blood [...] [facility] Basophil Count [facility]NO[facility] Neutrophils 47.2 % [facility] Lymphocytes 37.8 % [facility] Monocytes 9.3 % [facility] Eosinophils 5.0 % [facility] Basophils 0.7 % [facility] Comment: DIAGNOSTICS REPORT COMMENT: FASTING:YES PATIENT UNABLE TO VOID; ADVISED TO RETURN FOR COLLECTION. Test Performed at: [facility] [address], [id number] LM PEDERSEN DO,MPH Performing Organization Address [facility] Phone Number [employer] [phone] [place] [address] * LIPID PROFILE (12/12/2018) Cholesterol 207 (H) [...] factors. LDL-C is now calculated using the Bayron calculation, which is a validated novel method providing better accuracy than the Friedewald equation in the estimation of LDL-C. Mitchell RAVI et al. ALVERTO. 2013;310(19): 4554-4059 (http://education.e994.[employer] - is now ClipCard/faq/HKX855) Cholesterol/HDL 6.1 (H) <5.0 (calc) [facility] Ratio [facility] Non HDL 173 (H) <130 mg/dL (calc) [facility] Cholesterol Comment: DIAGNOSTICS For patients with diabetes plus 1 major ASCVD risk factor, treating to a non-HDL-C goal of <100 mg/dL (LDL-C of <70 mg/dL) is considered a therapeutic option. Test Performed at: [facility] [address] [place], [id number] LM PEDERSEN DO,MPH Performing Organization Address City/State[facility] Phone Number [employer] [phone] [place] [address] from Last 3 Months Insurance Type Payer Benefit Subscriber ID Effective Phone Address Plan / Dates Group Medicare COVENTRY MEDICARE COVENTRY xxxxxxxxxxx 2016 [employer] -Present MEDICARE PPO Advance Directives Patient has advance care planning documents, and code status on file. For more information, please contact: [facility] [address] [place] [address] Date Inactivated Comments Code Status Date Activated 09/01/2017 7:06 PM Full Code 08/29/2017 7:33 AM Provider has discussed Code Status Yes w/Patient or Family?
--- OUTSIDE RECORDS SUMMARY | 2019-01-24 14:53 | XMS REPORT | Clinical Summary ---
Author Author [facility] Organization [facility] Address Unknown Phone Unavailable Care Team Providers Care Picker Box Operator Name Role Phone Severo Ramirez MD PCP [...] (1 of 2 - PCV13) Influenza Vaccine (Season 08/30/2019 Ended) Results Not on filefrom Last 3 Months
--- OUTSIDE RECORDS SUMMARY | 2019-01-24 14:54 | XMS REPORT | Continuity of Care Document ---
Author Author [facility] Organization [facility] Address Unknown Phone Unavailable Allergies Active Description Code Type Severity Reaction Onset Reported/Identified Relationship to Patient Clinical Status Yes BACTRIM UNKNOWN OTHER Yes NO KNOWN DRUG ALLERGIES UNKNOWN NO KNOWN DRUG ALLERG Yes No Known Drug Allergies [id number] Drug Allergy Unknown N/A 03/04/2016 Yes sulfamethoxazole [id number] Drug Allergy Unknown N/A 2018 Yes trimethoprim [id number] Drug Allergy Unknown N/A 2018 Medications Medication Packaging Start Date Stop Date Route Dosage Sig NORMAL SALINE 1000CC IV BAG INJ 0.9 % (NS 1000CC IV BAG) ml 11/14/2018 11/29/2018 CONTINUOUSEVERY 0 Hour CEFTRIAXONE PREMIX IV BAG IV 1 GM/50CC (ROCEPHIN PREMIX IV BAG) GM 11/14/2018 11/14/2018 ONCE&1819 ACETAMINOPHEN ORAL TABLET 325mg(Tylenol) MG 11/14/2018 12/14/2018 PRN EVERY 4 Hour NORMAL SALINE 250CC IV BAG INJ 0.9 % (NS 250CC IV BAG) ml 11/14/2018 11/14/2018 ONCE&1952 NORMAL SALINE 1000CC IV BAG INJ 0.9 % (NS 1000CC IV BAG) ml 11/14/2018 11/29/2018 CONTINUOUSEVERY 0 Hour Docusate sodium 100mg oral capsule (COLACE) 11/14/2018 12/14/2018 PRN BID NORMAL SALINE 50CC IV BAG INJ (NS 50CC MINI-BAG) ml 11/14/2018 11/19/2018 EVERY 8 Hour&0400,1200,2000 LACTULOSE SYRUP LIQ 20 GM/30CC (CHRONULAC SYRUP) GM 11/14/2018 12/14/2018 BID&0800,2000 NORMAL SALINE 50CC IV BAG INJ (NS 50CC MINI-BAG) ml 11/14/2018 11/19/2018 EVERY 8 Hour&0500,1300,2100 MELATONIN TAB 3 MG (MELATONIN) MG 11/14/2018 11/20/2018 PRN QHS NORMAL SALINE 250CC IV BAG INJ 0.9 % (NS 250CC IV BAG) ml 11/14/2018 11/14/2018 ONCE&2100 ALPRAZOLAM TAB 0.25 MG (XANAX) TAB 11/14/2018 11/24/2018 PRN Q8H ACETAMINOPHEN SUPPOS SUP 650 MG (TYLENOL) MG 11/14/2018 11/21/2018 PRN Q4H ONDANSETRON VIAL INJ 4 MG/2CC (ZOFRAN 2CC VIAL) MG 11/14/2018 11/21/2018 PRN Q4H NORMAL SALINE 250CC IV BAG INJ 0.9 % (NS 250CC IV BAG) ml 11/14/2018 11/14/2018 ONCE&2200 ALUM/MAG/SIMETH 30CC LIQ (MYLANTA PLUS) cc 11/14/2018 11/24/2018 PRN Q4H NORMAL SALINE 250CC IV BAG INJ 0.9 % (NS 250CC IV BAG) ml 11/14/2018 11/14/2018 ONCE&2300 ACETAMINOPHEN ORAL TABLET 325mg(Tylenol) MG 11/14/2018 12/14/2018 PRN EVERY 6 Hour CLONIDINE TAB 0.1 MG (CATAPRES) MG 11/14/2018 11/21/2018 PRN Q6H CALCIUM CARBONATE TAB 500 MG (TUMS) MG 11/14/2018 11/21/2018 PRN Q6H DIPHENHYDRAMINE CAP 25 MG (BENADRYL) MG 11/14/2018 11/21/2018 PRN Q6H HYDROCODONE/APAP 5MG/325MG TAB 5 MG/325MG (JOANNE-TAB 5/325) TAB 11/14/2018 11/24/2018 PRN Q6H Metoprolol IV soln 5mg/5cc vial (Lopressor) MG 2018 2018 ONCE&0151 ASPIRIN ENTERIC COATED TAB 81 MG (BABY ASPIRIN EC) MG 2018 2018 ONCE&0319 NORMAL SALINE 1000CC IV BAG INJ 0.9 % (NS 1000CC IV BAG) ml 2018 2018 ONCE&0519 Normal SALINE 0.9 % (NS 100cc) (plain bag) ml 2018 11/17/2018 CONTINUOUSEVERY 0 Hour Meropenem-0.9% sodium chloride IV piggyback 500mg MG 2018 11/24/2018 Q8H&0600,1400,2200 APIXABAN TAB 5 MG (ELIQUIS) MG 11/21/2018 BID&0800,2000 Metoprolol IV soln 5mg/5cc vial (Lopressor) MG 2018 2018 ONCE&0753 NORMAL SALINE 1000CC IV BAG INJ 0.9 % (NS 1000CC IV BAG) ml 2018 2018 ONCE&0753 NORMAL SALINE 250CC IV BAG INJ 0.9 % (NS 250CC IV BAG) ml 2018 2018 ONCE&0800 LACTULOSE SYRUP LIQ 20 GM/30CC (CHRONULAC SYRUP) GM 2018 12/15/2018 PRN BID ASPIRIN ENTERIC COATED TAB 81 MG (BABY ASPIRIN EC) MG 2018 11/21/2018 Daily&0900 BISACODYL TAB 5 MG (DULCOLAX) MG 11/21/2018 PRN Daily POLYETHYLENE GLYCOL POWDER UD PWD (MIRALAX 17GM UNIT DOSE PAKS) gm 2018 11/21/2018 Daily&0900 BISACODYL SUPPOS 10 MG (DULCOLAX SUPPOS) MG 2018 11/21/2018 PRN Daily MILK OF MAGNESIA LIQ ml 2018 12/14/2018 PRN Daily NORMAL SALINE 1000CC IV BAG INJ 0.9 % (NS 1000CC IV BAG) ml 2018 2018 ONCE&1033 Amiodarone in dextrose IV solution (Nexterone 360mg) MG 2018 11/22/2018 CONTINUOUSEVERY 0 Hour NORMAL SALINE 1000CC IV BAG INJ 0.9 % (NS 1000CC IV BAG) ml 2018 11/30/2018 CONTINUOUSEVERY 0 Hour NORMAL SALINE 250CC IV BAG INJ 0.9 % (NS 250CC IV BAG) ml 2018 11/21/2018 Daily&2300 Problems Date Dx Coded Attending Type Code Diagnosis Diagnosed By 03/01/2016 SANDOR WAYNE DO Ot I31.3 PERICARDIAL EFFUSION (NONINFLAMMATORY) 03/01/2016 SANDOR WAYNE DO Ot J47.9 BRONCHIECTASIS, UNCOMPLICATED 03/01/2016 SANDOR WAYNE DO Ot J84.9 INTERSTITIAL PULMONARY DISEASE, UNSPECIF 03/01/2016 SANDOR WAYNE DO Ot R06.00 DYSPNEA, UNSPECIFIED 03/04/2016 SANDOR WAYNE DO Ot J47.9 BRONCHIECTASIS, UNCOMPLICATED 03/04/2016 SANDOR WAYNE DO Ot Z01.818 ENCOUNTER FOR OTHER PREPROCEDURAL EXAMIN 03/09/2016 SANDOR WAYNE DO Ot J47.9 BRONCHIECTASIS, UNCOMPLICATED 03/10/2016 SANDOR WAYNE DO Ot J47.9 BRONCHIECTASIS, UNCOMPLICATED 03/17/2016 SANDOR WAYNE DO Ot I31.3 PERICARDIAL EFFUSION (NONINFLAMMATORY) 03/17/2016 SANDOR WAYNE DO Ot J47.9 BRONCHIECTASIS, UNCOMPLICATED 03/17/2016 SANDOR WAYNE DO Ot J84.9 INTERSTITIAL PULMONARY DISEASE, UNSPECIF 03/17/2016 SANDOR WAYNE DO Ot R06.00 DYSPNEA, UNSPECIFIED 11/14/2018 Easton Jamisoni W 599.0 URINARY TRACT INFECTION, SITE NOT SPECIFIED 11/14/2018 Easton Jamisoni W N39.0 URINARY TRACT INFECTION, SITE NOT SPECIFIED 11/14/2018 Lala Traci W 584.9 ACUTE KIDNEY FAILURE, UNSPECIFIED 11/14/2018 Jamison Traci W 599.0 URINARY TRACT INFECTION, SITE NOT SPECIFIED 11/14/2018 Jamison Traci W N17.9 ACUTE KIDNEY FAILURE, UNSPECIFIED 11/14/2018 Jamison, Traci W N39.0 URINARY TRACT INFECTION, SITE NOT SPECIFIED 11/14/2018 Jamison Traci W 584.9 ACUTE KIDNEY FAILURE, UNSPECIFIED 11/14/2018 Jamison Traci W 599.0 URINARY TRACT INFECTION, SITE NOT SPECIFIED 11/14/2018 Jamison Traci W N17.9 ACUTE KIDNEY FAILURE, UNSPECIFIED 11/14/2018 Jamison Traci W N39.0 URINARY TRACT INFECTION, SITE NOT SPECIFIED 2018 Traci Jamison W 038.9 2018 Traci Jamison W 276.8 HYPOPOTASSEMIA 2018 Traci Jamison W 427.31 2018 Traci Jamison W 458.9 2018 Traci Jamison W 491.20 OBSTRUCTIVE CHRONIC BRONCHITIS, WITHOUT EXACERBATION 2018 Traci Jamison W 584.9 ACUTE KIDNEY FAILURE, UNSPECIFIED 2018 Traci Jamison W 585.9 2018 Traci Jamison W 599.0 URINARY TRACT INFECTION, SITE NOT SPECIFIED 2018 Traci Jamison W 790.4 NONSPECIFIC ELEVATION OF LEVELS OF TRANSAMINASE OR LACTIC ACID DEHYDROGENASE [ LDH] 2018 Traci Jamison W A41.9 SEPSIS, UNSPECIFIED ORGANISM 2018 Traci Jamison W E87.6 HYPOKALEMIA 2018 Traci Jamison W I48.91 UNSPECIFIED ATRIAL FIBRILLATION 2018 Traci Jamison W I95.9 HYPOTENSION, UNSPECIFIED 2018 Traci Jamison W J44.9 CHRONIC OBSTRUCTIVE PULMONARY DISEASE, UNSPECIFIED 2018 Traci Jamison W N17.9 ACUTE KIDNEY FAILURE, UNSPECIFIED 2018 Traci Jamison W N18.9 CHRONIC KIDNEY DISEASE, UNSPECIFIED 2018 Traci Jamison W N39.0 URINARY TRACT INFECTION, SITE NOT SPECIFIED 2018 Traci Jamison W R74.0 NONSPEC ELEV OF LEVELS OF TRANSAMNS T LACTIC ACID DEHYDRGNSE 11/16/2018 SANDOR WAYNE DO Ot I31.3 PERICARDIAL EFFUSION (NONINFLAMMATORY) 11/16/2018 SANDOR WAYNE DO Ot J47.9 BRONCHIECTASIS, UNCOMPLICATED 11/16/2018 SANDOR WAYNE DO Ot J84.9 INTERSTITIAL PULMONARY DISEASE, UNSPECIF 11/16/2018 SANDOR WAYNE DO Ot R06.00 DYSPNEA, UNSPECIFIED 11/18/2018 TRACI JAMISON DO Ot A41.9 SEPSIS, UNSPECIFIED ORGANISM 11/18/2018 TRACI JAMISON DO Ot E83.39 OTHER DISORDERS OF PHOSPHORUS METABOLISM 11/18/2018 TRACI JAMISON DO Ot E83.42 HYPOMAGNESEMIA 11/18/2018 TRACI JAMISON DO Ot E86.9 VOLUME DEPLETION, UNSPECIFIED 11/18/2018 JAMISON DO, TRACI Ot E87.6 HYPOKALEMIA 11/18/2018 JAMISON DO, TRACI Ot F41.9 ANXIETY DISORDER, UNSPECIFIED 11/18/2018 JAMISON DO, TRACI Ot I07.1 RHEUMATIC TRICUSPID INSUFFICIENCY 11/18/2018 JAMISON DO, TRACI Ot I27.20 PULMONARY HYPERTENSION, UNSPECIFIED 11/18/2018 JAMISON DO, TRACI Ot I48.0 PAROXYSMAL ATRIAL FIBRILLATION 11/18/2018 JAMISON DO, TRACI Ot I49.5 SICK SINUS SYNDROME 11/18/2018 JAMISON DO, TRACI Ot I95.9 HYPOTENSION, UNSPECIFIED 11/18/2018 JAMISON DO, TRACI Ot J18.1 LOBAR PNEUMONIA, UNSPECIFIED ORGANISM 11/18/2018 JAMISON DO, TRACI Ot J44.9 CHRONIC OBSTRUCTIVE PULMONARY DISEASE, U 11/18/2018 JAMISON DO, TRACI Ot N17.9 ACUTE KIDNEY FAILURE, UNSPECIFIED 11/18/2018 JAMISON DO, TRACI Ot N30.00 ACUTE CYSTITIS WITHOUT HEMATURIA 11/18/2018 JAMISON DO, TRACI Ot N32.81 OVERACTIVE BLADDER 11/18/2018 JAMISON DO, TRACI Ot N36.42 INTRINSIC SPHINCTER DEFICIENCY (ISD) 11/18/2018 JAMISON DO, TRACI Ot N39.46 MIXED INCONTINENCE 11/18/2018 JAMISON DO, TRACI Ot R33.9 RETENTION OF URINE, UNSPECIFIED 11/18/2018 JAMISON DO, TRACI Ot Z87.891 PERSONAL HISTORY OF NICOTINE DEPENDENCE 12/20/2018 MARTÍN CHAVEZ MD, I Ot I31.3 PERICARDIAL EFFUSION (NONINFLAMMATORY) 12/20/2018 MARTÍN CHAVEZ MD, I Ot J44.9 CHRONIC OBSTRUCTIVE PULMONARY DISEASE, U 12/20/2018 MARTÍN CHAVEZ MD, I Ot R06.00 DYSPNEA, UNSPECIFIED 12/31/2018 SANDOR WAYNE DO Ot I31.3 PERICARDIAL EFFUSION (NONINFLAMMATORY) 12/31/2018 SANDOR WAYNE DO Ot J47.9 BRONCHIECTASIS, UNCOMPLICATED 12/31/2018 SANDOR WAYNE DO, Ot J84.9 INTERSTITIAL PULMONARY DISEASE, UNSPECIF 12/31/2018 SANDOR WAYNE DO Ot R06.00 DYSPNEA, UNSPECIFIED 12/31/2018 MARTÍN CHAVEZ MD, I Ot I31.3 PERICARDIAL EFFUSION (NONINFLAMMATORY) 12/31/2018 MARTÍN CHAVEZ MD, I Ot J44.9 CHRONIC OBSTRUCTIVE PULMONARY DISEASE, U 12/31/2018 MARTÍN CHAVEZ MD, I Ot R06.00 DYSPNEA, UNSPECIFIED 01/04/2019 SANDOR WAYNE DO Ot I31.3 PERICARDIAL EFFUSION (NONINFLAMMATORY) 01/04/2019 SANDOR WAYNE DO Ot J47.9 BRONCHIECTASIS, UNCOMPLICATED 01/04/2019 SANDOR WAYNE DO Ot J84.9 INTERSTITIAL PULMONARY DISEASE, UNSPECIF 01/04/2019 SANDOR WAYNE DO Ot R06.00 DYSPNEA, UNSPECIFIED 01/04/2019 MARTÍN CHAVEZ MD, I Ot I31.3 PERICARDIAL EFFUSION (NONINFLAMMATORY) 01/04/2019 MARTÍN CHAVEZ MD, I Ot J44.9 CHRONIC OBSTRUCTIVE PULMONARY DISEASE, U 01/04/2019 MARTÍN CHAVEZ MD, I Ot R06.00 DYSPNEA, UNSPECIFIED 01/06/2019 ANTOINE MATHUR MD S Ot E78.5 HYPERLIPIDEMIA, UNSPECIFIED 01/06/2019 KEVAN URBANO, ANTOINE S Ot I12.9 HYPERTENSIVE CHRONIC KIDNEY DISEASE W ST 01/06/2019 ANTOINE MATHUR MD S Ot I48.91 UNSPECIFIED ATRIAL FIBRILLATION 01/06/2019 ANTOINE MATHUR MD S Ot J47.9 BRONCHIECTASIS, UNCOMPLICATED 01/06/2019 KEVAN URBANO, ANTOINE S Ot N18.3 CHRONIC KIDNEY DISEASE, STAGE 3 (MODERAT 01/06/2019 KEVAN URBANO, ANTOINE S Ot N39.0 URINARY TRACT INFECTION, SITE NOT SPECIF 01/10/2019 ANTOINE MATHUR MD S Ot E78.5 HYPERLIPIDEMIA, UNSPECIFIED 01/10/2019 ANTOINE MATHUR MD S Ot I12.9 HYPERTENSIVE CHRONIC KIDNEY DISEASE W ST 01/10/2019 ANTOINE MATHUR MD S Ot I48.91 UNSPECIFIED ATRIAL FIBRILLATION 01/10/2019 ANTOINE MATHUR MD S Ot J47.9 BRONCHIECTASIS, UNCOMPLICATED 01/10/2019 KEVAN URBANO, ANTOINE Pearce Ot N18.3 CHRONIC KIDNEY DISEASE, STAGE 3 (MODERAT 01/10/2019 KEVAN URBANO, ANTOINE Pearce Ot N39.0 URINARY TRACT INFECTION, SITE NOT SPECIF Procedures There is no data. Results Test Result Range Mycobacterium species detection by organism specific culture - 03/09/16 11:45 DATE/TIME MICROSCOPIC 03-11-2015 NRG MICROSCOPIC NO ACID-FAST BACILLI FOUND NRG [...] plasma albumin measurement (mass/volume) 3.6 g/dL 3.2-4.5 Blood Culture - 11/14/18 17:37 PRELIM CULTURE RESULTS Blood Culture Negative, No Growth Day 1 MEDIA PLATED LOADED IN B26 CULTURE SOURCE LT AC Blood Culture - 11/14/18 17:37 PRELIM CULTURE RESULTS Blood Culture Negative, No Growth Day 1 MEDIA PLATED LOADED IN B35 CULTURE SOURCE RT AC Comprehensive Metabolic Panel - 11/14/18 17:37 Albumin 4.5 g/dL 3.6-5.1 ALP 126 U/L 35-130 ALT 37 U/L 6-45 Anion Gap 21 6-14 AST 65 U/L 2-40 BUN 71 mg/dL 5-25 Calcium 10.8 mg/dL 8.3-10.4 Chloride 99 mmol/L 95-114 CO2 18 mEq/L 22-33 Creat 2.18 mg/dL 0.50-1.50 eGFR 22 mL/min/1.73m2 >59 Globulin 5.0 g/dL 2.3-3.5 Glucose 128 mg/dL 70-110 Osmo 300 280-295 Potassium 3.4 mmol/L 3.5-5.3 Sodium 135 mmol/L 134-148 TBil 2.0 mg/dL 0.2-1.2 TP 9.5 g/dL 6.0-8.3 Lactic Acid - 11/14/18 17:37 Lactic Acid 19.2 mg/dL 4.5-19.8 Urinalysis - 11/14/18 17:37 Icotest Positive Negative Urine Volume Urine Volume Sufficient (10mL) Urine Yeast No Yeast present Urine-Appearance Cloudy Clear Urine-Bacteria 4+ Urine-Bilirubin 1+ Negative Urine-Blood 1+ Negative Urine-Color [place] Colorless-Lt. Yellow Urine-Epithelial Cells 0-5/HPF Urine-Glucose Negative Negative Urine-Ketones Negative Negative Urine-Leukocytes 2+ Negative Urine-Nitrite Positive Negative Urine-Other Culture to follow Urine-pH 5.5 5-8.5 Urine-Protein 1+ Negative Urine-RBC Negative Urine-Specific [place] 1.025 1.000-1.030 Urine-WBC 20-40/HPF Urobilinogen 1.0 E.U./dL 0.2-1.0 Blood Culture - 11/14/18 17:37 PRELIM CULTURE RESULTS Blood Culture Negative, No Growth Day 1 FINAL CULTURE RESULTS Blood Culture Negative, No Growth Day 5 MEDIA PLATED LOADED IN B26 CULTURE SOURCE LT AC Blood Culture - 11/14/18 17:37 PRELIM CULTURE RESULTS Blood Culture Negative, No Growth Day 1 FINAL CULTURE RESULTS Blood Culture Negative, No Growth Day 5 MEDIA PLATED LOADED IN B35 CULTURE SOURCE RT AC Influenza - 11/14/18 17:45 Influenza NEGATIVE FOR A and B 0.00-0.00 Comprehensive Metabolic Panel - 11/15/18 05:00 Albumin 3.3 g/dL 3.6-5.1 ALP 116 U/L 35-130 ALT 36 U/L 6-45 Anion Gap 14 6-14 AST 57 U/L 2-40 BUN 58 mg/dL 5-25 Calcium 9.1 mg/dL 8.3-10.4 Chloride 110 mmol/L 95-114 CO2 18 mEq/L 22-33 Creat 1.64 mg/dL 0.50-1.50 eGFR 30 mL/min/1.73m2 >59 Globulin 3.7 g/dL 2.3-3.5 Glucose 103 mg/dL 70-110 Osmo 302 280-295 Potassium 3.0 mmol/L 3.5-5.3 Sodium 139 mmol/L 134-148 TBil 1.3 mg/dL 0.2-1.2 TP 7.0 g/dL 6.0-8.3 BNP - 11/15/18 05:00 BNP 215.00 pg/ml 0.00-100.00 Arterial Blood Gas - 11/15/18 09:57 Base -11.00 mmol/L 1.80-4.20 HCO3 14 mmol/L 20-31 O2 Sat 98 2L % 95-100 pCO2 24 mm/Hg 35-45 pH 7.37 7.35-7.45 PO2 109 mm/Hg 80-95 Complete blood count (CBC) with automated white blood cell (WBC) differential - 11/15/18 13:20 Blood leukocytes automated count (number/volume) 15.9 10*3/uL 4.3-11.0 Blood erythrocytes automated count (number/volume) 3.97 10*6/uL 4.35-5.85 Venous blood hemoglobin measurement (mass/volume) 11.5 g/dL 11.5-16.0 Blood hematocrit (volume fraction) 36 % 35-52 Automated erythrocyte mean corpuscular volume 90 [foz_us] 80-99 Automated erythrocyte mean corpuscular hemoglobin (mass per erythrocyte) 29 pg 25-34 Automated erythrocyte mean corpuscular hemoglobin concentration measurement ( mass/volume) 32 g/dL 32-36 Automated erythrocyte distribution width ratio 14.1 % 10.0-14.5 Automated blood platelet count (count/volume) 217 10*3/uL 130-400 Automated blood platelet mean volume measurement 9.9 [foz_us] 7.4-10.4 Automated blood neutrophils/100 leukocytes 78 % 42-75 Automated blood lymphocytes/100 leukocytes 12 % 12-44 Blood monocytes/100 leukocytes 9 % 0-12 Automated blood eosinophils/100 leukocytes 1 % 0-10 Automated blood basophils/100 leukocytes 0 % 0-10 Blood neutrophils automated count (number/volume) 12.5 10*3 1.8-7.8 Blood lymphocytes automated count (number/volume) 1.8 10*3 1.0-4.0 Blood monocytes automated count (number/volume) 1.4 10*3 0.0-1.0 Automated eosinophil count 0.2 10*3/uL 0.0-0.3 Automated blood basophil count (count/volume) 0.0 10*3/uL 0.0-0.1 Blood lactic acid measurement (moles/volume) - 11/15/18 13:20 Blood lactic acid measurement (moles/volume) 0.90 mmol/L 0.50-2.00 Blood manual differential performed detection - 11/15/18 13:20 Blood monocytes/100 leukocytes 2 % NRG Manual blood segmented neutrophils/100 leukocytes 73 % NRG Blood band neutrophils/100 leukocytes 0 % NRG Manual blood lymphocytes/100 leukocytes 24 % NRG Manual eosinophils/100 leukocytes in nose 1 % NRG Manual blood basophils/100 leukocytes 0 % NRG Blood erythrocyte morphology finding identification NORMAL NR Comprehensive metabolic panel - 11/15/18 13:20 Serum or plasma sodium measurement (moles/volume) 142 mmol/L 135-145 Serum or plasma potassium measurement (moles/volume) 3.0 mmol/L 3.6-5.0 Serum or plasma chloride measurement (moles/volume) 118 mmol/L 98-107 Carbon dioxide 18 mmol/L 21-32 Serum or plasma anion gap determination (moles/volume) 6 mmol/L 5-14 Serum or plasma urea nitrogen measurement (mass/volume) 39 mg/dL 7-18 Serum or plasma creatinine measurement (mass/volume) 1.21 mg/dL 0.60-1.30 Serum or plasma urea nitrogen/creatinine mass ratio 32 NRG Serum or plasma creatinine measurement with calculation of estimated glomerular filtration rate 43 NRG Serum or plasma glucose measurement (mass/volume) 102 mg/dL 70-105 Serum or plasma calcium measurement (mass/volume) 7.7 mg/dL 8.5-10.1 Serum or plasma total bilirubin measurement (mass/volume) 0.9 mg/dL 0.1-1.0 Serum or plasma alkaline phosphatase measurement (enzymatic activity/volume) 102 U/L 40-136 Serum or plasma aspartate aminotransferase measurement (enzymatic activity/ volume) 40 U/L 5-34 Serum or plasma alanine aminotransferase measurement (enzymatic activity/volume ) 26 U/L 0-55 Serum or plasma protein measurement (mass/volume) 5.9 g/dL 6.4-8.2 Serum or plasma albumin measurement (mass/volume) 2.6 g/dL 3.2-4.5 CALCIUM CORRECTED 8.8 mg/dL 8.5-10.1 Serum or plasma phosphate measurement (mass/volume) - 11/15/18 13:20 Serum or plasma phosphate measurement (mass/volume) 1.6 mg/dL 2.3-4.7 Magnesium - 11/15/18 13:20 Magnesium 1.7 mg/dL 1.8-2.4 Serum or plasma troponin i.cardiac measurement (mass/volume) - 11/15/18 13:20 Serum or plasma troponin i.cardiac measurement (mass/volume) < ng/ mL <0.028 Serum or plasma lithium measurement (moles/volume) - 11/15/18 13:20 BNP level 691.6 pg/mL <100.0 Methicillin resistant Staphylococcus aureus (MRSA) screening culture - 13:41 Methicillin resistant Staphylococcus aureus (MRSA) screening culture NEG NRG Complete blood count (CBC) with automated white blood cell (WBC) differential - 11/16/18 03:30 Blood leukocytes automated count (number/volume) 15.7 10*3/uL 4.3-11.0 Blood erythrocytes automated count (number/volume) 3.43 10*6/uL 4.35-5.85 Venous blood hemoglobin measurement (mass/volume) 10.2 g/dL 11.5-16.0 Blood hematocrit (volume fraction) 31 % 35-52 Automated erythrocyte mean corpuscular volume 90 [foz_us] 80-99 Automated erythrocyte mean corpuscular hemoglobin (mass per erythrocyte) 30 pg 25-34 Automated erythrocyte mean corpuscular hemoglobin concentration measurement ( mass/volume) 33 g/dL 32-36 Automated erythrocyte distribution width ratio 14.6 % 10.0-14.5 Automated blood platelet count (count/volume) 213 10*3/uL 130-400 Automated blood platelet mean volume measurement 9.3 [foz_us] 7.4-10.4 Automated blood neutrophils/100 leukocytes 77 % 42-75 Automated blood lymphocytes/100 leukocytes 12 % 12-44 Blood monocytes/100 leukocytes 10 % 0-12 Automated blood eosinophils/100 leukocytes 1 % 0-10 Automated blood basophils/100 leukocytes 0 % 0-10 Blood neutrophils automated count (number/volume) 12.1 10*3 1.8-7.8 Blood lymphocytes automated count (number/volume) 2.0 10*3 1.0-4.0 Blood monocytes automated count (number/volume) 1.6 10*3 0.0-1.0 Automated eosinophil count 0.1 10*3/uL 0.0-0.3 Automated blood basophil count (count/volume) 0.0 10*3/uL 0.0-0.1 Comprehensive metabolic panel - 11/16/18 03:30 Serum or plasma sodium measurement (moles/volume) 141 mmol/L 135-145 Serum or plasma potassium measurement (moles/volume) 4.1 mmol/L 3.6-5.0 Serum or plasma chloride measurement (moles/volume) 121 mmol/L 98-107 Carbon dioxide 13 mmol/L 21-32 Serum or plasma anion gap determination (moles/volume) 7 mmol/L 5-14 Serum or plasma urea nitrogen measurement (mass/volume) 22 mg/dL 7-18 Serum or plasma creatinine measurement (mass/volume) 0.99 mg/dL 0.60-1.30 Serum or plasma urea nitrogen/creatinine mass ratio 22 NRG Serum or plasma creatinine measurement with calculation of estimated glomerular filtration rate 54 NRG Serum or plasma glucose measurement (mass/volume) 107 mg/dL 70-105 Serum or plasma calcium measurement (mass/volume) 7.7 mg/dL 8.5-10.1 Serum or plasma total bilirubin measurement (mass/volume) 0.7 mg/dL 0.1-1.0 Serum or plasma alkaline phosphatase measurement (enzymatic activity/volume) 107 U/L 40-136 Serum or plasma aspartate aminotransferase measurement (enzymatic activity/ volume) 45 U/L 5-34 Serum or plasma alanine aminotransferase measurement (enzymatic activity/volume ) 31 U/L 0-55 Serum or plasma protein measurement (mass/volume) 5.4 g/dL 6.4-8.2 Serum or plasma albumin measurement (mass/volume) 2.4 g/dL 3.2-4.5 CALCIUM CORRECTED 9.0 mg/dL 8.5-10.1 Whole blood basic metabolic panel - 11/16/18 03:30 Serum or plasma sodium measurement (moles/volume) 141 mmol/L 135-145 Serum or plasma potassium measurement (moles/volume) 4.1 mmol/L 3.6-5.0 Serum or plasma chloride measurement (moles/volume) 121 mmol/L 98-107 Carbon dioxide 13 mmol/L 21-32 Serum or plasma anion gap determination (moles/volume) 7 mmol/L 5-14 Serum or plasma urea nitrogen measurement (mass/volume) 22 mg/dL 7-18 Serum or plasma creatinine measurement (mass/volume) 0.99 mg/dL 0.60-1.30 Serum or plasma urea nitrogen/creatinine mass ratio 22 NRG Serum or plasma creatinine measurement with calculation of estimated glomerular filtration rate 54 NRG Serum or plasma glucose measurement (mass/volume) 107 mg/dL 70-105 Serum or plasma calcium measurement (mass/volume) 7.7 mg/dL 8.5-10.1 Serum or plasma phosphate measurement (mass/volume) - 11/16/18 03:30 Serum or plasma phosphate measurement (mass/volume) 2.5 mg/dL 2.3-4.7 Magnesium - 11/16/18 03:30 Magnesium 2.0 mg/dL 1.8-2.4 Complete blood count (CBC) with automated white blood cell (WBC) differential - 11/17/18 04:50 Blood leukocytes automated count (number/volume) 15.4 10*3/uL 4.3-11.0 Blood erythrocytes automated count (number/volume) 4.04 10*6/uL 4.35-5.85 Venous blood hemoglobin measurement (mass/volume) 11.7 g/dL 11.5-16.0 Blood hematocrit (volume fraction) 36 % 35-52 Automated erythrocyte mean corpuscular volume 88 [foz_us] 80-99 Automated erythrocyte mean corpuscular hemoglobin (mass per erythrocyte) 29 pg 25-34 Automated erythrocyte mean corpuscular hemoglobin concentration measurement ( mass/volume) 33 g/dL 32-36 Automated erythrocyte distribution width ratio 14.2 % 10.0-14.5 Automated blood platelet count (count/volume) 283 10*3/uL 130-400 Automated blood platelet mean volume measurement 9.5 [foz_us] 7.4-10.4 Automated blood neutrophils/100 leukocytes 73 % 42-75 Automated blood lymphocytes/100 leukocytes 13 % 12-44 Blood monocytes/100 leukocytes 11 % 0-12 Automated blood eosinophils/100 leukocytes 2 % 0-10 Automated blood basophils/100 leukocytes 1 % 0-10 Blood neutrophils automated count (number/volume) 11.3 10*3 1.8-7.8 Blood lymphocytes automated count (number/volume) 2.0 10*3 1.0-4.0 Blood monocytes automated count (number/volume) 1.7 10*3 0.0-1.0 Automated eosinophil count 0.4 10*3/uL 0.0-0.3 Automated blood basophil count (count/volume) 0.1 10*3/uL 0.0-0.1 Whole blood basic metabolic panel - 11/17/18 04:50 Serum or plasma sodium measurement (moles/volume) 138 mmol/L 135-145 Serum or plasma potassium measurement (moles/volume) 3.4 mmol/L 3.6-5.0 Serum or plasma chloride measurement (moles/volume) 112 mmol/L 98-107 Carbon dioxide 15 mmol/L 21-32 Serum or plasma anion gap determination (moles/volume) 11 mmol/L 5-14 Serum or plasma urea nitrogen measurement (mass/volume) 10 mg/dL 7-18 Serum or plasma creatinine measurement (mass/volume) 0.86 mg/dL 0.60-1.30 Serum or plasma urea nitrogen/creatinine mass ratio 12 NRG Serum or plasma creatinine measurement with calculation of estimated glomerular filtration rate > NRG Serum or plasma glucose measurement (mass/volume) 109 mg/dL 70-105 Serum or plasma calcium measurement (mass/volume) 8.7 mg/dL 8.5-10.1 Serum or plasma phosphate measurement (mass/volume) - 11/17/18 04:50 Serum or plasma phosphate measurement (mass/volume) 2.3 mg/dL 2.3-4.7 Magnesium - 11/17/18 04:50 Magnesium 1.5 mg/dL 1.8-2.4 Complete blood count (CBC) with automated white blood cell (WBC) differential - 11/18/18 03:08 Blood leukocytes automated count (number/volume) 13.6 10*3/uL 4.3-11.0 Blood erythrocytes automated count (number/volume) 3.65 10*6/uL 4.35-5.85 Venous blood hemoglobin measurement (mass/volume) 10.7 g/dL 11.5-16.0 Blood hematocrit (volume fraction) 32 % 35-52 Automated erythrocyte mean corpuscular volume 89 [foz_us] 80-99 Automated erythrocyte mean corpuscular hemoglobin (mass per erythrocyte) 29 pg 25-34 Automated erythrocyte mean corpuscular hemoglobin concentration measurement ( mass/volume) 33 g/dL 32-36 Automated erythrocyte distribution width ratio 14.5 % 10.0-14.5 Automated blood platelet count (count/volume) 324 10*3/uL 130-400 Automated blood platelet mean volume measurement 9.0 [[id number]] 7.4-10.4 Automated blood neutrophils/100 leukocytes 63 % 42-75 Automated blood lymphocytes/100 leukocytes 23 % 12-44 Blood monocytes/100 leukocytes 11 % 0-12 Automated blood eosinophils/100 leukocytes 3 % 0-10 Automated blood basophils/100 leukocytes 0 % 0-10 Blood neutrophils automated count (number/volume) 8.6 10*3 1.8-7.8 Blood lymphocytes automated count (number/volume) 3.1 10*3 1.0-4.0 Blood monocytes automated count (number/volume) 1.5 10*3 0.0-1.0 Automated eosinophil count 0.4 10*3/uL 0.0-0.3 Automated blood basophil count (count/volume) 0.1 10*3/uL 0.0-0.1 Whole blood basic metabolic panel - 11/18/18 03:08 Serum or plasma sodium measurement (moles/volume) 138 mmol/L 135-145 Serum or plasma potassium measurement (moles/volume) 3.5 mmol/L 3.6-5.0 Serum or plasma chloride measurement (moles/volume) 111 mmol/L 98-107 Carbon dioxide 18 mmol/L 21-32 Serum or plasma anion gap determination (moles/volume) 9 mmol/L 5-14 Serum or plasma urea nitrogen measurement (mass/volume) 12 mg/dL 7-18 Serum or plasma creatinine measurement (mass/volume) 0.89 mg/dL 0.60-1.30 Serum or plasma urea nitrogen/creatinine mass ratio 13 NRG Serum or plasma creatinine measurement with calculation of estimated glomerular filtration rate > NRG Serum or plasma glucose measurement (mass/volume) 100 mg/dL 70-105 Serum or plasma calcium measurement (mass/volume) 8.4 mg/dL 8.5-10.1 Serum or plasma phosphate measurement (mass/volume) - 11/18/18 03:08 Serum or plasma phosphate measurement (mass/volume) 2.1 mg/dL 2.3-4.7 Magnesium - 11/18/18 03:08 Magnesium 1.3 mg/dL 1.8-2.4 Encounters ACCT No. Visit Date/Time Discharge Status Pt. Type Provider Facility Loc./Unit Complaint [id number] 01/04/2019 09:15:00 01/04/2019 23:59:59 CLS Outpatient KEVAN URBANO, ANTOINE Pearce [facility] RAD CHRONIC KIDNEY DISEASE STAGE 3 [id number] 2018 12:55:00 11/18/2018 17:10:00 DIS Inpatient TRACI JAMISON DO [facility] ICU HYPOTENSION, AFIB WITH RVR [id number] 09/04/2017 08:00:00 09/04/2017 23:59:59 CLS Outpatient JULIUS KAMARA MD, MARTÍN Crespo [facility] NO DX GIVEN ON ORDER [id number] 03/09/2016 10:32:00 03/09/2016 12:45:00 DIS Outpatient SANDOR WAYNE DO [facility] SDC NODULE [id number] 03/04/2016 05:43:00 03/04/2016 11:46:00 DIS Outpatient SANDOR WAYNE DO [facility] PREOP NODULE [id number] 02/26/2016 14:34:00 02/26/2016 23:59:59 CLS Outpatient SANDOR WAYNE DO [facility] RAD BRONCHIECTASIS, PERICARDIAL EFFUSION [id number] 11/14/2018 20:20:00 Document Registration [id number] 11/14/2018 20:20:00 2018 12:20:00 DIS Inpatient [facility] MED-SURG [id number] 11/14/2018 18:20:35 Document Registration [id number] 01/09/2019 14:15:00 01/09/2019 23:59:59 [facility]
--- NOTE | 2019-01-24 15:57 | ED Cardiac General ---
History of Present Illness General Chief Complaint: Cardiac/General Problems Stated Complaint: A. FIB. Nursing Triage Note: PT SENT TO ED FROM DR CAMPBELL OFFICE, "CONCERN FOR A FIB". 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 PT IS PAIN FREE. History of Present Illness Date Seen by Provider: Jan 24, 2019 Time Seen by Provider: 15:35 This is a 78-year-old female with a history of atrial fibrillation on Eliquis here for a sensation of palpitations generally that she experiences when lying flat at night. This is been going on for years she states but has been more frequently over the last couple of months. She is asymptomatic at this time. She is not having chest pain with this. She does get slightly winded when she takes out the trash, she does not describe having to modify her behaviors recently but may on review of systems admit to mild increase in dyspnea with exertion. No lightheadedness or vomiting. Last stress test she reports as being normal and estimates it was about 2 years ago. She is concerned that "this could damage my heart", and she is concerned it will be a while before she can get into the cardiology office. Allergies and Home Medications Allergies Coded Allergies: sulfamethoxazole (Verified Allergy, Unknown, 11/15/18) caused renal failure last time taken. trimethoprim (Verified Allergy, Unknown, 11/15/18) caused renal failure last time taken. Home Medications Amiodarone HCl 200 Mg Tablet, 200 MG PO DAILY Prescribed by: SUNIL JAMISON on 11/18/18 1507 Apixaban 5 Mg Tablet, 5 MG PO BID Prescribed by: SUNIL JAMISON on 11/18/18 1507 Cefdinir 300 Mg Capsule, 300 MG PO BID Prescribed by: SUNIL JAMISON on 11/18/18 1507 Metoprolol Tartrate 25 Mg Tablet, 25 MG PO BID Prescribed by: SUNIL JAMISON on 11/18/18 1507 Patient Home Medication List Home Medication List Reviewed: Yes Review of Systems Review of Systems Constitutional: no symptoms reported EENTM: No Symptoms Reported Respiratory: No Symptoms Reported Cardiovascular: See HPI Gastrointestinal: No Symptoms Reported Genitourinary: No Symptoms Reported Musculoskeletal: no symptoms reported Skin: no symptoms reported Psychiatric/Neurological: No Symptoms Reported Endocrine: No Symptoms Reported Hematologic/Lymphatic: No Symptoms Reported Past Ajscdkl-Fdmieu-Gtkzdp Hx Past Med/Social Hx: Reviewed Nursing Past Med/Soc Hx Patient Social History Alcohol Use: Rarely Uses Number of Drinks Today: AA Alcohol Beverage of Choice: Beer Recreational Drug Use: No Smoking Status: Former Smoker Former Smoker, Quit: Oct 30, 1995 2nd Hand Smoke Exposure: No Recent Foreign Travel: No Contact w/Someone Who Travel: No Recent Infectious Disease Expo: No Recent Hopitalizations: No Physical Abuse: No Sexual Abuse: No Mistreated: No Fear: No Immunizations Up To Date Date of Pneumonia Vaccine: March 09, 2017 Date of Influenza Vaccine: Aug 15, 2018 Seasonal Allergies Seasonal Allergies: No Past Medical History Surgeries: Yes (LEFT HIP FX, CATARACTS) Eye Surgery, Orthopedic Respiratory: Yes (COPD, BRONCHITIS, BRONCHIECTASIS) COPD Currently Using CPAP: No Currently Using BIPAP: No Cardiac: Yes Atrial Fibrillation Neurological: No Genitourinary: Yes Bladder Infection, UTI-Chronic Gastrointestinal: No Musculoskeletal: No Arthritis Endocrine: No HEENT: Yes (CATARACT SURGERY) Cataract Cancer: No Psychosocial: No Integumentary: No Blood Disorders: No Adverse Reaction/Blood Tranf: No Physical Exam Vital Signs Vital Signs - First Documented 01/24/19 15:05 Temp 98.3 Pulse 68 Resp 20 B/P (MAP) 143/84 (103) Pulse Ox 88 O2 Delivery Room Air Capillary Refill : Less Than 3 Seconds Height, Weight, BMI Height: 5'3.00" Weight: 130lbs. 0oz. [id number]; 24.3 BMI Method:Stated General Appearance: No Apparent Distress HEENT: PERRL/EOMI, Moist Mucous Membranes Neck: Supple; No JVD Respiratory: Lungs Clear; No Rales, No Rhonci, No Wheezing Cardiovascular: Regular Rate, Rhythm, No Edema Gastrointestinal: Non Tender, Soft Extremity: Pedal Edema (trace symmetrical) Neurologic/Psychiatric: Alert, No Motor/Sensory Deficits, Normal Mood/Affect Skin: Warm/Dry Progress/Results/Core Measures Results/Orders Lab Results Laboratory Tests Test 01/24/19 16:25 Range/Units White Blood Count 10.2 4.3-11.0 10^3/uL Red Blood Count 4.47 4.35-5.85 10^6/uL Hemoglobin 13.4 11.5-16.0 G/DL Hematocrit 42 35-52 % Mean Corpuscular Volume 94 80-99 FL Mean Corpuscular Hemoglobin 30 25-34 PG Mean Corpuscular Hemoglobin Concent 32 32-36 G/DL Red Cell Distribution Width 14.9 H 10.0-14.5 % Platelet Count 265 130-400 10^3/uL Mean Platelet Volume 9.6 7.4-10.4 FL Sodium Level 140 135-145 MMOL/L Potassium Level 4.1 3.6-5.0 MMOL/L Chloride Level 102 98-107 MMOL/L Carbon Dioxide Level 23 21-32 MMOL/L Anion Gap 15 H 5-14 MMOL/L Blood Urea Nitrogen 24 H 7-18 MG/DL Creatinine 1.40 H 0.60-1.30 MG/DL Estimat Glomerular Filtration Rate 36 BUN/Creatinine Ratio 17 Glucose Level 94 70-105 MG/DL Calcium Level 9.8 8.5-10.1 MG/DL Troponin T 7 <=10 NG/L My Orders Orders - TONI CORDOVA DO Cbc No Diff (01/24/19 15:50) Basic Metabolic Panel (01/24/19 15:50) Troponin T (01/24/19 15:50) Chest 1 View Ap/Pa Only (01/24/19 15:50) Vital Signs/I&O 01/24/19 15:05 Temp 98.3 Pulse 68 Resp 20 B/P (MAP) 143/84 (103) Pulse Ox 88 O2 Delivery Room Air Blood Pressure Mean: 103 Progress Progress Note #1: Progress Note Patient presents with very vague complaint of palpitations occurring when lying flat at night, this ongoing for years and more frequent in the last couple of months. Currently asymptomatic. Vitals are stable. Exam is normal. Currently in sinus rhythm. She is anticoagulated. Rate is controlled. Symptoms are not suggestive of ACS, pulmonary embolus, aortic dissection, pneumothorax, mediastinitis. We'll check basic labs, chest x-ray. Recommend calling the cardiology office for next available appointment. For now reassurance has been provided, and return precautions reviewed. Progress Note #2: Progress Note Dr Patel will see pt in the office on Monday. She feels well and would like to go home. EKG : Comment 1518: Normal sinus rhythm rate of 64. Left axis deviation. Delayed precordial R- wave progression. Nonspecific T-wave flattening in leads 3 and aVL. QTC 435. Departure Impression Primary Impression: Palpitations Disposition: 01 HOME, SELF-CARE Condition: Stable Departure-Patient Inst. Referrals: GIOVANNI CAMPBELL MD (PCP/Family) Primary Care Physician Patient Instructions: Palpitations (DC) TONI CORDOVA DO Jan 24, 2019 15:56
--- NOTE | 2019-01-24 16:26 | Diagnostic Imaging Report ---
INDICATION: Atrial fibrillation. Frontal chest obtained at 03:50 p.m. and compared to 11/17/2018. Heart is normal size. There is diffuse interstitial fibrotic change with improvement in patchy alveolar infiltrates in the left upper lobe and both bases compared to the prior study. There is no pneumothorax or pleural fluid. IMPRESSION: Underlying interstitial fibrotic changes with partial improvement in patchy alveolar infiltrates in both lung bases and the left upper lobe compared to the prior study. Dictated by: Dictated on workstation # [id number]
[2019-01-24 17:25] LABS: POTASSIUM 4.1 MMOL/L (3.6-5.0)
[2019-01-24 17:26] LABS: CALCIUM 9.8 MG/DL (8.5-10.1); CREATININE SERUM 1.4 MG/DL (0.60-1.30); HEMOGLOBIN 13.4 G/DL (11.5-16.0); WHITE BLOOD COUNT 10.2 10^3/uL (4.3-11.0)
[2019-01-24 17:27] LABS: MEAN PLATELET VOLUME 9.6 FL (7.4-10.4); RED CELL DISTRIBUTION WIDTH 14.9 % (10.0-14.5)
[2019-01-24 18:05] VITALS: BP 132/66
--- NOTE | 2019-01-24 18:05 | NUR ---
PT VERBALIZING UNDERSTANDING OF INSTRUCTIONS, DISCHARGED REMAINING IN SINUS RHYTHM.
== END 2019-01-24 18:05 | disposition home or self-care (01) ==
LOC: EDUNIT# 14:48 → ER FS 14:49 → EDBD 14:49 → ER FS 18:05
DX: R00.2 Palpitations (principal); I48.91 Unspecified atrial fibrillation; J44.9 Chronic obstructive pulmonary disease, unspecified; Z87.440 Personal history of urinary (tract) infections; Z87.891 Personal history of nicotine dependence; Z79.01 Long term (current) use of anticoagulants; Z88.2 Allergy status to sulfonamides; Z88.1 Allergy status to other antibiotic agents
CPT/HCPCS: 36415; 71045; 80048; 84484; 85027

== ENCOUNTER 2019-04-15 12:09 | Outpatient (RCR) | payer MEDICARE, MEDICAID | END 2019-07-14 | disposition home or self-care (01) | LOC: CARD 12:09 | PROVIDERS: ATTEND Internal Medicine Interventional Cardiology | DX: I48.0 Paroxysmal atrial fibrillation (principal); I07.1 Rheumatic tricuspid insufficiency; I49.5 Sick sinus syndrome ==

== ENCOUNTER → 2020-01-08 | Outpatient (CLI) | payer MEDICARE, MEDICAID ==
[~2020-01-08] MED LIST changes: -METO-370 PO; +METO50TA7 PO
--- NOTE | 2020-01-08 15:03 | Diagnostic Imaging Report ---
EXAMINATION: PA and lateral chest at 2:27 p.m. INDICATION: Cough, fever. FINDINGS: The heart size is within normal limits and stable when compared to 01/24/2019. The prior exam did note chronic pulmonary changes. Those findings are again visualized on this exam. There is slight increased density along the periphery of the right upper lobe when compared to the prior exam. There is also another area of increased density overlying the right apex. These findings could be related to mild acute pneumonia/atelectasis superimposed on the underlying chronic pulmonary changes. The vague area of increased density overlying the left lung base seen previously is again evident and consequently most likely chronic in nature. There is no sign of overt failure and there is no pleural effusion identified. The mediastinum is not widened. The osseous structures are intact. IMPRESSION: 1. There is a question of mild acute pneumonia/atelectasis superimposed on the chronic pulmonary changes involving the right upper lobe. Clinical follow-up is recommended. 2. There is no acute cardiopulmonary abnormality noted otherwise. Dictated by: Dictated on workstation # [id number]
== END ==
LOC: RAD FS 14:18
PROVIDERS: ATTEND Nurse Practitioner
DX: R05 Cough (principal); R50.9 Fever, unspecified
CPT/HCPCS: 71046

== ENCOUNTER → 2020-05-27 | Outpatient (CLI) | payer MEDICARE, MEDICAID ==
--- NOTE | 2020-05-27 13:32 | Diagnostic Imaging Report ---
EXAMINATION: PA and lateral chest at 12:55 p.m. INDICATION: Cough, weakness. FINDINGS: The heart size is within normal limits and stable when compared to 01/08/2020. The prior study did note areas of increased density overlying the right upper lung periphery and the right apex. Those findings are again evident on this study and do not seem to have changed significantly. Consequently, they may well be chronic in nature. The chronic changes involving the lung bases seen previously are again evident and no different as well. The mediastinum is not widened. The osseous structures are intact. IMPRESSION: 1. The areas of abnormal density involving the right upper lung seen on the prior study are again evident and not significantly changed. Consequently, they may well be chronic in nature. There are also chronic changes involving the lung bases and these too seem similar to the prior exam. 2. There is no acute cardiopulmonary abnormality identified. 3. If clinical concern regarding an underlying abnormality persists, however, then CT of the chest will be recommended for further study. Dictated by: Dictated on workstation # [id number]
== END ==
LOC: RAD FS 12:42
PROVIDERS: ATTEND Nurse Practitioner Family
DX: J98.4 Other disorders of lung (principal); R53.1 Weakness
CPT/HCPCS: 71046

== ENCOUNTER → 2020-06-26 | Outpatient (CLI) | payer MEDICARE, MEDICAID ==
[2020-06-26 14:44] LABS: CALCIUM 9.7 MG/DL (8.5-10.1); CREATININE SERUM 1.45 MG/DL (0.60-1.30); POTASSIUM 4.1 MMOL/L (3.6-5.0)
[2020-06-26 14:45] LABS: ALBUMIN 3.9 GM/DL (3.2-4.5); BILIRUBIN,TOTAL 0.5 MG/DL (0.1-1.0); TOTAL PROTEIN 7.9 GM/DL (6.4-8.2)
--- NOTE | 2020-06-26 16:19 | Diagnostic Imaging Report ---
EXAMINATION: CT Chest without contrast. TECHNIQUE: Multiple contiguous axial images were obtained through the chest without the use of intravenous contrast. All CT scans use one or more of the following dose optimizing techniques: automated exposure control, MA and/or KvP adjustment based on a patient size and exam type, or iterative reconstruction. HISTORY: Mycobacterium avium infection. COMPARISON: 02/26/2016. FINDINGS: There are extensive tree-in-bud nodules throughout both lungs most pronounced in the bases, right middle lobe and lingula. This is associated with mucous plugging and bronchiectasis. The appearance has progressed from prior exam in 2016. No edema. No pleural effusion. No pneumothorax. There is no axillary or supraclavicular lymphadenopathy. A few prominent mediastinal lymph nodes are likely reactive. Heart size is normal. There are mild coronary artery calcifications. No pericardial effusion. Aorta is normal in caliber. Limited views of the upper abdomen are unremarkable. There are no suspicious osseous lesions. IMPRESSION: 1. Increase in extensive bilateral tree-in-bud nodules with areas of bronchiectasis and mucous plugging consistent with history of mycobacterium avium complex infection. Dictated by: Dictated on workstation # [id number]
== END ==
LOC: RAD FS 13:48
PROVIDERS: ATTEND Family Medicine
DX: A31.0 Pulmonary mycobacterial infection (principal); J47.9 Bronchiectasis, uncomplicated; R91.8 Other nonspecific abnormal finding of lung field; R53.83 Other fatigue
CPT/HCPCS: 36415; 71250; 80053

== ENCOUNTER 2020-08-01 21:52 | Emergency (ER) | payer MEDICARE, MEDICAID ==
[~2020-08-01] VITALS: Ht 160 cm; Wt 53.9 kg
[2020-08-01] MEDS ORDERED: NS IV 1000 ML 500 ML IV STA (22:12)
[2020-08-01] MEDS ORDERED: ONDANSETRON 4 MG/2 ML (SDV) Z0FRAN IVP ONE (22:15)
[2020-08-01] MEDS ORDERED: ACETAMINOPHEN 500 MG TAB (TYLENOL) PO ONE (22:15)
[2020-08-01 22:25] LABS: EOSINOPHILS % (AUTO) 3 % (0-10); HEMATOCRIT 33 % (35-52); HEMOGLOBIN 10.7 G/DL (11.5-16.0); LYMPHOCYTES % (AUTO) 19 % (12-44); MEAN CORPUSCULAR HEMOGLOBIN 29 PG (25-34); MEAN CORPUSCULAR HGB CONC 32 G/DL (32-36); MEAN CORPUSCULAR VOLUME 89 FL (80-99); MEAN PLATELET VOLUME 8.8 FL (7.4-10.4); MONOCYTES % (AUTO) 8 % (0-12); NEUTROPHILS % (AUTO) 69 % (42-75); PLATELET COUNT 317 10^3/uL (130-400); WHITE BLOOD COUNT 14.7 10^3/uL (4.3-11.0)
[2020-08-01 22:26] LABS: BASOPHILS # (AUTO) 0.1 10^3/uL (0.0-0.1); BASOPHILS % (AUTO) 0 % (0-10); EOSINOPHILS # (AUTO) 0.5 10^3/uL (0.0-0.3); LYMPHOCYTES # (AUTO) 2.9 X 10^3 (1.0-4.0); MONOCYTES # (AUTO) 1.1 X 10^3 (0.0-1.0); NEUTROPHILS # (AUTO) 10.1 X 10^3 (1.8-7.8)
[2020-08-01 22:31] LABS: BACTERIA,URINE TRACE /HPF; BILIRUBIN,URINE NEGATIVE (NEGATIVE); CLARITY,URINE CLEAR; COLOR,URINE YELLOW; GLUCOSE, URINE (UA) NEGATIVE (NEGATIVE); HYALINE CASTS, URINE RARE /LPF; KETONES,URINE NEGATIVE (NEGATIVE); LEUKOCYTE ESTERASE ,URINE TRACE (NEGATIVE); NITRITE,URINE NEGATIVE (NEGATIVE); PH,URINE 5.5 (5-9); PROTEIN,URINE NEGATIVE (NEGATIVE); WBC,URINE 0-2 /HPF
[2020-08-01 22:46] LABS: ALANINE AMINOTRANSFERASE 7 U/L (0-55); ALBUMIN 3.8 GM/DL (3.2-4.5); ALKALINE PHOSPHATASE 57 U/L (40-136); BILIRUBIN,TOTAL 0.4 MG/DL (0.1-1.0); BUN/CREATININE RATIO 10; CALCIUM 9.2 MG/DL (8.5-10.1); CARBON DIOXIDE 21 MMOL/L (21-32); CHLORIDE 104 MMOL/L (98-107); CREATININE SERUM 1.57 MG/DL (0.60-1.30); GFR ESTIMATED 32; GLUCOSE 106 MG/DL (70-105); LIPASE 12 U/L (8-78); POTASSIUM 3.6 MMOL/L (3.6-5.0); SODIUM 140 MMOL/L (135-145); TOTAL PROTEIN 7.3 GM/DL (6.4-8.2)
[2020-08-01 22:51] LABS: EOSINOPHILS % (MANUAL) 2 %; LYMPHOCYTES % (MANUAL) 15 %; MONOCYTES % (MANUAL) 8 %; NEUTROPHILS % (MANUAL) 75 %
--- NOTE | 2020-08-01 23:05 | ED Abdominal Pain ---
General Chief Complaint: Abdominal/GI Problems Stated Complaint: NO STOOL FOR 2 DAYS,ABD PAIN History of Present Illness Date Seen by Provider: Aug 01, 2020 Time Seen by Provider: 22:00 Initial Comments The patient is an 79-year-old female with a history of hyperlipidemia, bronchiectasis not on home oxygen, paroxysmal atrial fibrillation on Eliquis and digoxin. She presents for evaluation of 3-4 days of inability to have a bowel movement in association with mild generalized abdominal crampy discomfort at times which the patient states feels "like my belly does when I have to poop." Associated nausea without vomiting. No associated fevers, upper respiratory congestion/rhinorrhea, cough, shortness of breath or chest pain of any kind, focal abdominal pain of any kind, flank pain, back pain, dysuria or hematuria. Patient has no abdominal surgical history aside from remote cholecystectomy and reports no prior history of bowel obstruction. She is in no acute distress and vital signs are appropriate here. Allergies and Home Medications Allergies Coded Allergies: sulfamethoxazole (Verified Allergy, Unknown, 11/15/18) caused renal failure last time taken. trimethoprim (Verified Allergy, Unknown, 11/15/18) caused renal failure last time taken. Home Medications Amiodarone HCl 200 Mg Tablet, 200 MG PO DAILY Prescribed by: SUNIL JAMISON on 11/18/18 1507 Apixaban 5 Mg Tablet, 5 MG PO BID Prescribed by: SUNIL JAMISON on 11/18/18 1507 Cefdinir 300 Mg Capsule, 300 MG PO BID Prescribed by: SUNIL JAMISON on 11/18/18 1507 Metoprolol Tartrate 25 Mg Tablet, 25 MG PO BID Prescribed by: SUNIL JAMISON on 11/18/18 1507 Patient Home Medication List Home Medication List Reviewed: Yes Review of Systems Review of Systems Constitutional: see HPI All Other Systems Reviewed Negative Unless Noted: Yes (Negative excepted noted.) Past Yrskgns-Kdougy-Gtoqdu Hx Past Med/Social Hx: Reviewed Nursing Past Med/Soc Hx Patient Social History Alcohol Beverage of Choice: Beer Former Smoker, Quit: Oct 30, 1995 2nd Hand Smoke Exposure: No Recent Foreign Travel: No Contact w/Someone Who Travel: No Recent Hopitalizations: No Immunizations Up To Date Date of Pneumonia Vaccine: March 09, 2017 Date of Influenza Vaccine: Aug 15, 2018 Seasonal Allergies Seasonal Allergies: No Past Medical History Surgeries: Yes (LEFT HIP FX, CATARACTS) Eye Surgery, Orthopedic Respiratory: Yes (COPD, BRONCHITIS, BRONCHIECTASIS) COPD Currently Using CPAP: No Currently Using BIPAP: No Cardiac: Yes Atrial Fibrillation Neurological: No Genitourinary: Yes Bladder Infection, UTI-Chronic Gastrointestinal: No Musculoskeletal: No Arthritis Endocrine: No HEENT: Yes (CATARACT SURGERY) Cataract Cancer: No Psychosocial: No Integumentary: No Blood Disorders: No Adverse Reaction/Blood Tranf: No Family Medical History Reviewed Nursing Family Hx Physical Exam Vital Signs Vital Signs - First Documented 08/01/20 22:05 Temp 36.5 Pulse 95 Resp 16 B/P (MAP) 124/58 (80) Pulse Ox 93 O2 Delivery Room Air Capillary Refill : Height/Weight/BMI Height: 5'3.00" Weight: 130lbs. 0oz. 58.859727hd; 24.3 BMI Method:Stated General Appearance: no apparent distress Exam Comments This is an elderly female appearing nontoxic and in no acute distress. Head is normocephalic and atraumatic. Neck is supple and nontender. Oropharynx is moist. Lungs are clear to auscultation at all stations. There is a normal S1 and S2 without rubs or gallops and capillary refill is appropriate, less than 2 seconds globally. Abdomen is soft, nontender and nondistended with no focal discomfort to palpation noted anywhere. No rebound or guarding. Rectal examinat ion with normal external and internal rectum without masses or lesions or tenderness appreciated anywhere and without occlusive stool ball or other evidence of distal impaction which would benefit from manual disimpaction. Skin is warm and dry without cyanosis, clubbing or edema. Psychiatrically, the patient demonstrates appropriate mood and affect and is alert. Progress/Results/Core Measures Results/Orders Lab Results Laboratory Tests Test 08/01/20 22:17 08/01/20 22:20 Range/Units White Blood Count 14.7 H 4.3-11.0 10^3/uL Red Blood Count 3.74 L 4.35-5.85 10^6/uL Hemoglobin 10.7 L 11.5-16.0 G/DL Hematocrit 33 L 35-52 % Mean Corpuscular Volume 89 80-99 FL Mean Corpuscular Hemoglobin 29 25-34 PG Mean Corpuscular Hemoglobin Concent 32 32-36 G/DL Red Cell Distribution Width 14.2 10.0-14.5 % Platelet Count 317 130-400 10^3/uL Mean Platelet Volume 8.8 7.4-10.4 FL Immature Granulocyte % (Auto) 1 % Neutrophils (%) (Auto) 69 42-75 % Lymphocytes (%) (Auto) 19 12-44 % Monocytes (%) (Auto) 8 0-12 % Eosinophils (%) (Auto) 3 0-10 % Basophils (%) (Auto) 0 0-10 % Neutrophils # (Auto) 10.1 H 1.8-7.8 X 10^3 Lymphocytes # (Auto) 2.9 1.0-4.0 X 10^3 Monocytes # (Auto) 1.1 H 0.0-1.0 X 10^3 Eosinophils # (Auto) 0.5 H 0.0-0.3 10^3/uL Basophils # (Auto) 0.1 0.0-0.1 10^3/uL Immature Granulocyte # (Auto) 0.1 0.0-0.1 10^3/uL Neutrophils % (Manual) 75 % Lymphocytes % (Manual) 15 % Monocytes % (Manual) 8 % Eosinophils % (Manual) 2 % Sodium Level 140 135-145 MMOL/L Potassium Level 3.6 3.6-5.0 MMOL/L Chloride Level 104 98-107 MMOL/L Carbon Dioxide Level 21 21-32 MMOL/L Anion Gap 15 H 5-14 MMOL/L Blood Urea Nitrogen 16 7-18 MG/DL Creatinine 1.57 H 0.60-1.30 MG/DL Estimat Glomerular Filtration Rate 32 BUN/Creatinine Ratio 10 Glucose Level 106 H 70-105 MG/DL Calcium Level 9.2 8.5-10.1 MG/DL Corrected Calcium 8.5-10.1 MG/DL Total Bilirubin 0.4 0.1-1.0 MG/DL Aspartate Amino Transf (AST/SGOT) 14 5-34 U/L Alanine Aminotransferase (ALT/SGPT) 7 0-55 U/L Alkaline Phosphatase 57 40-136 U/L Total Protein 7.3 6.4-8.2 GM/DL Albumin 3.8 3.2-4.5 GM/DL Lipase 12 8-78 U/L Urine Color YELLOW Urine Clarity CLEAR Urine pH 5.5 5-9 Urine Specific [place] 1.020 1.016-1.022 Urine Protein NEGATIVE NEGATIVE Urine Glucose (UA) NEGATIVE NEGATIVE Urine Ketones NEGATIVE NEGATIVE Urine Nitrite NEGATIVE NEGATIVE Urine Bilirubin NEGATIVE NEGATIVE Urine Urobilinogen 0.2 < = 1.0 MG/DL Urine Leukocyte Esterase TRACE H NEGATIVE Urine RBC (Auto) NEGATIVE NEGATIVE Urine RBC NONE /HPF Urine WBC 0-2 /HPF Urine Squamous Epithelial Cells 2-5 /HPF Urine Crystals NONE /LPF Urine Bacteria TRACE /HPF Urine Casts PRESENT /LPF Urine Hyaline Casts RARE /LPF Urine Mucus NEGATIVE /LPF Urine Culture Indicated YES My Orders Orders - CARIDAD MICHEL MD Cbc With Automated Diff (08/01/20 22:12) Comprehensive Metabolic Panel (08/01/20 22:12) Lipase (08/01/20 22:12) Ua Culture If Indicated (08/01/20 22:12) Ed Iv/Invasive Line Start (08/01/20 22:12) Ondansetron Injection (Zofran Injectio (08/01/20 22:15) Ns Iv 1000 Ml (Sodium Chloride 0.9%) (08/01/20 22:12) Ed Iv/Invasive Line Start (08/01/20 22:12) Acetaminophen Tablet (Tylenol Tablet) (08/01/20 22:15) Manual Differential (08/01/20 22:17) Urine Culture (08/01/20 22:20) Ct Abdomen/Pelvis Wo (08/01/20 22:12) Na Phos/Na Biphos Enema (Fleet Enema Ted (08/02/20 00:30) Magnesium Citrate Oral Soln (Citrate Of (08/02/20 00:30) Medications Given in ED Current Medications Medications Dose Ordered Sig/Celina Route Start Time Stop Time Status Last Admin Dose Admin Acetaminophen 1,000 mg ONCE ONCE PO 08/01/20 22:15 08/01/20 22:16 DC 08/01/20 22:25 1,000 MG Ondansetron HCl 4 mg ONCE ONCE IVP 08/01/20 22:15 08/01/20 22:16 DC 08/01/20 22:25 4 MG Sodium Biphosphate/ Sodium Phosphate 1 ea ONCE ONCE NE 08/02/20 00:30 08/02/20 00:31 DC 08/02/20 00:22 1 EA Vital Signs/I&O 08/01/20 22:05 Temp 36.5 Pulse 95 Resp 16 B/P (MAP) 124/58 (80) Pulse Ox 93 O2 Delivery Room Air 08/02/20 00:00 Intake Total 500 ml Balance 500 ml Progress Progress Note : Progress Note 2220: Elderly female who presents with 4-5 days of constipation. Benign abdominal examination. Given advanced age, we will check labs and given a small fluid bolus and obtain a CT scan of the abdomen and pelvis. We will then reevaluate. 2400: Labs remarkable only for a mild leukocytosis without history or examination or laboratory correlate digestive of any acute infectious process. CT of the abdomen and pelvis completed without contrast secondary to decreased GFR (baseline for pt) reveals significant constipation affecting the proximal large bowel without signs of bowel obstruction or other acute process. Mild 3cm infrarenal aortic aneurysm incidentally noted. Discussed options with the patient and will try magnesium citrate and an enema for symptomatic relief. 0120: Patient has had good results after enema and feels better. Will proceed with discharge home with instructions to use twice-daily Miralax and will prescribe two days of Senna as well. Patient is instructed to follow-up with her primary care physician immediately after the weekend and to return to the emergency Department immediately if symptoms worsen or if other new symptoms of concern develop. All questions are answered. Departure Impression Primary Impression: Acute constipation Disposition: 01 HOME, SELF-CARE Condition: Improved Departure-Patient Inst. Referrals: GIOVANNI CAMPBELL MD (PCP/Family) Primary Care Physician Patient Instructions: Constipation in Adults Add. Discharge Instructions: Follow-up very closely with your primary care physician in the office in the next 1-2 days for a reevaluation of your symptoms and a discussion of next steps in care. Take a scoop of the MiraLAX twice a day to soften your stool. In addition, tonight and tomorrow night when you go to bed take 2 tablets of senna as prescribed to help get things moving. Drink plenty of fluids. Return to the emergency department right away with worsening symptoms of any kind or with any other new symptoms of concern. Scripts Sennosides (Senna) 8.6 Mg Tablet 17.2 MG PO HS for 2 Days, #4 TAB Prov: CARIDAD MICHEL MD 08/02/20 Polyethylene Glycol 3350 (Miralax) 17 Gm Powd.pack 17 GM PO BID for 7 Days, #527 GM Prov: CARIDAD MICHEL MD 08/02/20 CARIDAD MICHEL MD Aug 01, 2020 23:05
[2020-08-02] MEDS ORDERED: FLEET ENEMA ADULT 1 EA BTL PR ONE (00:30)
[2020-08-02] MEDS ORDERED: MAGNESIUM CITRATE 300 ML BTL PO ONE (00:30)
[2020-08-02] MEDS ORDERED: SENN-234 PO (01:24)
[2020-08-02] MEDS ORDERED: POLY17PO6 PO (01:24)
[2020-08-02 01:36] VITALS: BP 118/56
--- NOTE | 2020-08-02 07:00 | Diagnostic Imaging Report ---
PROCEDURE: CT abdomen and pelvis without contrast. TECHNIQUE: Multiple contiguous axial images were obtained through the abdomen and pelvis without the use of intravenous contrast. Auto Exposure Controls were utilized during the CT exam to meet ALARA standards for radiation dose reduction. Indication: Abdominal pain with no bowel movement for 2 days, nausea. Comparison: None. Discussion: Patchy infiltrates with peribronchial thickening is noted within the lung bases, concerning for pneumonia. Normal heart size. No pleural fluid. Small pericardial fluid. Small hiatal hernia. The gallbladder is surgically absent. The liver, pancreas, spleen, and adrenal glands are unremarkable. No renal stone or hydronephrosis. 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 Severe atherosclerotic plaque is noted diffusely. The uterus and urinary bladder are unremarkable. There is severe constipation present. No abnormal small bowel loops are identified. No ascites or pathologically enlarged lymph nodes identified. No acute osseous abnormality. No evidence of appendicitis. Impression: 1. Significant constipation. 2. Mild ectasia of the abdominal aorta. 3. Patchy infiltrates and peribronchial thickening within the lung bases, likely pneumonia. 4. Constipation was mentioned on the preliminary report. The suspected pneumonia was not. Dictated by: Dictated on workstation # [id number]
== END 2020-08-02 01:36 | disposition home or self-care (01) ==
LOC: EDUNIT# 21:52 → ER FS 21:53
DX: K59.00 Constipation, unspecified (principal); I48.91 Unspecified atrial fibrillation; Z87.891 Personal history of nicotine dependence; Z79.01 Long term (current) use of anticoagulants; Z88.2 Allergy status to sulfonamides; Z88.1 Allergy status to other antibiotic agents
CPT/HCPCS: 36415; 74176; 80053; 81000; 83690; 85007; 85027; 87088

== ENCOUNTER 2020-08-08 13:13 | Emergency (ER) | payer MEDICARE, MEDICAID ==
[~2020-08-08] VITALS: Ht 160 cm; Wt 51.5 kg
[~2020-08-08 13:13] MED LIST changes: +POLY17PO6 PO; +SENN-234 PO
[2020-08-08 13:18] VITALS: BP 102/56
--- NOTE | 2020-08-08 13:41 | ED General ---
General Stated Complaint: CONSTIPATION History of Present Illness Date Seen by Provider: Aug 08, 2020 Time Seen by Provider: 13:36 Initial Comments Patient presenting to emergency department for evaluation of constipation that has been an issue for the past 2 weeks and she was seen here in the emergency department 7 days ago and had a CT done that showed constipation and she had an enema with good results and she was discharged with instructions take twice daily MiraLAX and senna for 2 days. She says that she has been doing suppositories over the past week intermittently but has not been taking anything orally including no MiraLAX or stool softeners. She says that she feels that she needs to have a bowel movement but has been unable to. She has had issues with constipation in the past but usually she is able to have a bowel movement every day to every other day. She denies any abdominal pain fevers chills nausea vomiting or other systemic symptoms. She says that she is passing gas and eating normally. She is in no obvious distress with normal vital signs. Allergies and Home Medications Allergies Coded Allergies: sulfamethoxazole (Verified Allergy, Unknown, 11/15/18) caused renal failure last time taken. trimethoprim (Verified Allergy, Unknown, 11/15/18) caused renal failure last time taken. Home Medications Amiodarone HCl 200 Mg Tablet, 200 MG PO DAILY Prescribed by: SUNIL JAMISON on 11/18/18 1507 Apixaban 5 Mg Tablet, 5 MG PO BID Prescribed by: SUNIL JAMISON on 11/18/18 1507 Cefdinir 300 Mg Capsule, 300 MG PO BID Prescribed by: SUNIL JAMISON on 11/18/18 1507 Metoprolol Tartrate 25 Mg Tablet, 25 MG PO BID Prescribed by: SUNIL JAMISON on 11/18/18 1507 Polyethylene Glycol 3350 17 Gm Powd.pack, 17 GM PO BID Prescribed by: CARIDAD MICHEL on 08/02/20123 Sennosides 8.6 Mg Tablet, 17.2 MG PO HS Prescribed by: CARIDAD MICHEL on 08/02/20123 Patient Home Medication List Home Medication List Reviewed: Yes Review of Systems Review of Systems Constitutional: no symptoms reported EENTM: no symptoms reported Respiratory: no symptoms reported Cardiovascular: no symptoms reported Gastrointestinal: constipation Genitourinary: no symptoms reported Psychiatric/Neurological: No Symptoms Reported All Other Systems Reviewed Negative Unless Noted: Yes Past Oovefnj-Oifykn-Elarvq Hx Patient Social History Alcohol Beverage of Choice: Beer Former Smoker, Quit: Oct 30, 1995 2nd Hand Smoke Exposure: No Recent Hopitalizations: No Immunizations Up To Date Date of Pneumonia Vaccine: March 09, 2017 Date of Influenza Vaccine: Aug 15, 2018 Seasonal Allergies Seasonal Allergies: No Past Medical History Surgeries: Yes (LEFT HIP FX, CATARACTS) Eye Surgery, Orthopedic Respiratory: Yes (COPD, BRONCHITIS, BRONCHIECTASIS) COPD Currently Using CPAP: No Currently Using BIPAP: No Cardiac: Yes Atrial Fibrillation Neurological: No Genitourinary: Yes Bladder Infection, UTI-Chronic Gastrointestinal: No Musculoskeletal: No Arthritis Endocrine: No HEENT: Yes (CATARACT SURGERY) Cataract Cancer: No Psychosocial: No Integumentary: No Blood Disorders: No Adverse Reaction/Blood Tranf: No Physical Exam Vital Signs Capillary Refill : Height, Weight, BMI Height: 5'3.00" Weight: 130lbs. 0oz. [id number]; 21.00 BMI Method:Stated General Appearance: No Apparent Distress, WD/WN HEENT: PERRL/EOMI Neck: Supple Respiratory: No Respiratory Distress Cardiovascular: Regular Rate, Rhythm Gastrointestinal: Non Tender, Soft Rectal: Other (No tenderness or masses noted. No stool palpable on digital exam) Back: Normal Inspection Neurologic/Psychiatric: Alert, Oriented x3 Skin: Warm/Dry Progress/Results/Core Measures Suspected Sepsis SIRS Temperature: Pulse: Respiratory Rate: Blood Pressure / Mean: Results/Orders Vital Signs/I&O Capillary Refill : Progress Note : Progress Note No signs of obstruction or fecal impaction a soft history or physical exam and she has absolutely no tenderness on abdominal exam and she appears well with normal vital signs. I told her she should take MiraLAX twice daily and she can also add in magnesium as well if she doesn't have a bowel movement today or tomorrow. She is inquiring about surgery I told her that there is no acute surgical pathology detected that she could follow with her primary care provider to go over further treatment options and possible referral to GI or general surgery. Patient aware and agreeable with plan and verbalized understanding of the above instructions. Departure Impression Primary Impression: Acute constipation Disposition: 01 HOME, SELF-CARE Condition: Stable Departure-Patient Inst. Referrals: GIOVANNI CAMPBELL MD (PCP/Family) Primary Care Physician Patient Instructions: Constipation, Adult (DC) Add. Discharge Instructions: Take 1 cap of miralax twice a day You can add in magnesium citrate if you don't have a BM by tomorrow. Stool softeners can also be added in All of this is OTC. CHUNG ERICKSON DO Aug 08, 2020 13:41
[2020-08-08] MEDS ORDERED: MTP25TSR (14:13)
[2020-08-08] MEDS ORDERED: CLOP75TA28 (14:13)
[2020-08-08] MEDS ORDERED: DIGO125T3 (14:13)
[2020-08-08] MEDS ORDERED: ATOR20TA66 (14:13)
[2020-08-08] MEDS ORDERED: LEVO750T39 (14:13)
== END 2020-08-08 13:45 | disposition home or self-care (01) ==
LOC: EDUNIT# 13:13 → ER FS 13:15
DX: K59.00 Constipation, unspecified (principal); I48.91 Unspecified atrial fibrillation; Z87.891 Personal history of nicotine dependence; Z79.01 Long term (current) use of anticoagulants; Z88.1 Allergy status to other antibiotic agents; Z88.2 Allergy status to sulfonamides
CPT/HCPCS: 99282

== ENCOUNTER 2021-01-18 06:58 | Outpatient (RCR) | payer MEDICARE, MEDICAID ==
[~2021-01-18] VITALS: Ht 160 cm; Wt 48.1 kg
[~2021-01-18 06:58] MED LIST changes: -AMIO200T4 PO; +AMIO200T6 PO; +ATOR20TA66; +CLOP75TA28; +DIGO125T3; +LEVO750T39; +MTP25TSR
[2021-01-18] MEDS ORDERED: ATOR40TA70 PO (10:46)
[2021-01-18] MEDS ORDERED: ALBU18HF2 INH (10:46)
[2021-01-18] MEDS ORDERED: CLOP75TA28 PO (10:46)
[2021-01-18] MEDS ORDERED: APIX2.5T PO (10:46)
[2021-01-18] MEDS ORDERED: DIGO125T3 PO (10:46)
[2021-01-18] MEDS ORDERED: MTP25TSR PO (10:46)
== END 2021-01-22 10:54 | disposition home or self-care (01) ==
LOC: PREOP 06:58
PROVIDERS: ATTEND Surgery
DX: Z01.818 Encounter for other preprocedural examination (principal)

== ENCOUNTER → 2021-01-22 | Outpatient (CLI) | payer MEDICARE, MEDICAID ==
[~2021-01-22] MED LIST changes: +ALBU18HF2 INH; +APIX2.5T PO; +ATOR40TA70 PO; +CLOP75TA28 PO; +DIGO125T3 PO; +MTP25TSR PO
== END ==
LOC: LAB FS 10:30
PROVIDERS: ATTEND Surgery
DX: Z01.812 Encounter for preprocedural laboratory examination (principal); R63.4 Abnormal weight loss; R11.0 Nausea; Z20.822 Contact with and (suspected) exposure to COVID-19
CPT/HCPCS: 87635

== ENCOUNTER 2021-01-25 07:32 | Day surgery (SDC) | payer MEDICARE, MEDICAID ==
[~2021-01-25] VITALS: Ht 160 cm; Wt 45.4 kg
[2021-01-25] MEDS ORDERED: LACTATED RINGERS 1,000 ML IV ONE (07:35)
[2021-01-25] MEDS ORDERED: PROPOFOL INJECTION 0 ML IV ONE (07:37)
[2021-01-25 07:47] VITALS: BP 122/76
[2021-01-25] MEDS ORDERED: LACTATED RINGERS 1,000 ML IV STA (07:48)
[2021-01-25] MEDS ORDERED: HURRICAINE EXT TUBE (BENZOCAINE) XX PRN (08:00)
[2021-01-25] MEDS ORDERED: PROPOFOL INJECTION 50 ML IV ONE (08:18)
[2021-01-25] MEDS ORDERED: HURRICAINE EXT TUBE (BENZOCAINE) ONE (08:31)
[2021-01-25 09:27] VITALS: BP 82/50
[2021-01-25 09:32] VITALS: BP 86/52
[2021-01-25 09:35] VITALS: BP 99/58
--- NOTE | 2021-01-25 10:43 | Progress Note-Post Operative ---
Post-Operative Progess Note Surgeon (s)/Traffic Analyst (s) Surgeon KOMAL SANTAMARIA DO Traffic Analyst: none Pre-Operative Diagnosis gastritis, weight loss, screening colon Post-Operative Diagnosis gastritis Esophagitis hiatal hernia Diverticula int hemorrhoids Procedure & Operative Findings Date of Procedure 01/25/21 Procedure Performed/Findings EGD with bx colon Anesthesia Type IV sedation by SENIOR PIPING DESIGNER Estimated Blood Loss Estimated blood loss (mL): scant Specimens/Packing Specimens Removed antral bx GE jxn x 2 KOMAL SANTAMARIA DO Jan 25, 2021 10:43
--- NOTE | 2021-01-25 10:44 | Endoscopy Discharge Instruct ---
Endo Procedure/Findings Findings 1.: Gastritis 2.: Hiatal Hernia 3.: Diverticulosis 4.: Internal Hemorrhoids Discharge Instructions - Activity: You might feel a little sleepy until tomorrow. This is due to the medicine you received to relax you. Until tomorrow, you should: NOT drive a car, operate machinery or power tools. NOT drink any alcoholic beverages. NOT make any important decisions or sign importortant papers. Do not return to work until tomorrow, unless otherwise instructed. Resume previous activities tomorrow. Diet: Start by taking liquids. If you tolerate liquids, advance to solid food. 1.: EGD in 3 years 2.: Colonscopy in 10 years Notify Physician - If you experience excessive bleeding, unusual abdominal pain, fever, or chest pain, contact your doctor immediately. KOMAL SANTAMARIA DO Jan 25, 2021 10:44
[2021-01-25 11:00] VITALS: BP 99/58
--- NOTE | 2021-01-25 13:22 | Anesthesia-General Post-Op ---
MAC Patient Condition Mental Status/LOC: Same as Preop Cardiovascular: Satisfactory Nausea/Vomiting: Absent Respiratory: Satisfactory Pain: Controlled Complications: Absent Post Op Complications Complications None Follow Up Care/Instructions Patient Instructions None needed. Anesthesiology Discharge Order Discharge Order Patient is doing well, no complaints, stable vital signs, no apparent adverse anesthesia problems. No complications reported per nursing. JEAN CLAUDE SEGUNDO CRNA Jan 25, 2021 13:22
--- NOTE | 2021-01-26 20:01 | OPERATIVE REPORT ---
DATE OF SERVICE: 01/25/2021 PREOPERATIVE DIAGNOSES: Gastritis, weight loss and screening colonoscopy. POSTOPERATIVE DIAGNOSES: Gastritis, esophagitis, hiatal hernia, diverticula, internal hemorrhoids. PROCEDURES: 1. EGD with biopsy. 2. Colonoscopy. SURGEON: Adi Ibrahim DO SECONDARY SET UP MAN: None. ANESTHESIA: IV sedation by the MS ACCESS DATABASE DEVELOPER. SPECIMEN: Biopsy of the antrum and two biopsies of the GE junction. BLOOD LOSS: Scant. FLUIDS: Per anesthesia. POSTOPERATIVE CONDITION: Stable. INDICATION FOR PROCEDURE: The patient is an 80-year-old female who has had some gastritis, weight loss, some possibly burning in the upper abdomen and she needs a screening colonoscopy. FINDINGS: The patient had gastritis, esophagitis and a large hiatal hernia. She also in the colon had diverticula and internal hemorrhoids. PROCEDURE NOTE: After informed consent was obtained, the patient was brought to the endoscopy suite, placed in bed in left lateral decubitus position. She was administered IV sedation by the MS ACCESS DATABASE DEVELOPER who then monitored her vitals the entire time, heart rate, blood pressure and pulse ox. Scope was inserted, started with the EGD, placed the scope down the mouth through the esophagus into the stomach, looked the antrum, saw some mild gastritis, took a picture, pushed into the duodenum. Duodenum looked fine. Pulled back and did a biopsy of the antrum. Retroflexed the scope. The body of stomach looked okay, but could see a large hiatal hernia, took a picture of this and then pulled the scope up into the GE junction and did two biopsies here. She looks like she had a little bit of esophagitis. Pushed the scope back in, suctioned all the air out and then pulled the scope up the esophagus and out the mouth. Switched camera, switched gloves, went down below, started the colonoscopy. Pushed all the way into about [address] in, noted some diverticula, took a picture, able to get all the way to the cecum, took a picture of appendiceal orifice, noted the ileocecal valve and then slowly withdrew the scope insufflating to look circumferentially at the madden looking the cecum, up the ascending colon to the hepatic flexure, then down the transverse colon, splenic flexure, into the descending colon and sigmoid, again throughout here, saw some diverticula and then down into the rectum, retroflexed in rectal vault, saw some internal hemorrhoids, took a picture and then removed the scope. The patient tolerated the procedure. She recovered in endoscopy suite. Job ID: [id number] DocumentID: [id number] Dictated Date: 01/26/2021 17:40:30 Nursing Informatics Specialist Date: 01/26/2021 20:00:58 Dictated By: ADI IBRAHIM DO
== END 2021-01-25 11:00 | disposition home or self-care (01) ==
LOC: ENDO 07:32
PROVIDERS: ATTEND Surgery
DX: Z12.11 Encounter for screening for malignant neoplasm of colon (principal); K29.50 Unspecified chronic gastritis without bleeding; K20.90 Esophagitis, unspecified without bleeding; K44.9 Diaphragmatic hernia without obstruction or gangrene; K64.8 Other hemorrhoids; K57.30 Diverticulosis of large intestine without perforation or abscess without bleeding; R63.4 Abnormal weight loss; K59.09 Other constipation; I48.0 Paroxysmal atrial fibrillation; J43.9 Emphysema, unspecified; Z79.899 Other long term (current) drug therapy; Z79.51 Long term (current) use of inhaled steroids; Z79.01 Long term (current) use of anticoagulants; Z88.2 Allergy status to sulfonamides; Z88.1 Allergy status to other antibiotic agents; Z87.891 Personal history of nicotine dependence; Z80.3 Family history of malignant neoplasm of breast; Z80.8 Family history of malignant neoplasm of other organs or systems
CPT/HCPCS: 43239; G0121; 88305

== ENCOUNTER 2022-03-11 18:41 | Emergency (ER) | payer MEDICARE, MEDICAID ==
[~2022-03-11] VITALS: Ht 160 cm; Wt 49.0 kg
[~2022-03-11 18:41] MED LIST changes: -AMIO200T6 PO; +AMIO200T65 PO
[2022-03-11 18:44] VITALS: BP 168/100
[2022-03-11] MEDS ORDERED: NS IV 1000 ML 1,000 ML IV STA (18:58)
[2022-03-11] MEDS ORDERED: ASPIRIN 81 MG CHEW (CHILDREN'S ASA) PO ONE (19:00)
[2022-03-11 19:02] LABS: BASOPHILS # (AUTO) 0.1 10^3/uL (0.0-0.1); BASOPHILS % (AUTO) 1 % (0-10); EOSINOPHILS # (AUTO) 0.7 10^3/uL (0.0-0.3); EOSINOPHILS % (AUTO) 7 % (0-10); HEMATOCRIT 39 % (35-52); HEMOGLOBIN 12.4 g/dL (11.5-16.0); LYMPHOCYTES # (AUTO) 3.1 10^3/uL (1.0-4.0); LYMPHOCYTES % (AUTO) 32 % (12-44); MEAN CORPUSCULAR HEMOGLOBIN 29 pg (25-34); MEAN CORPUSCULAR HGB CONC 32 g/dL (32-36); MEAN CORPUSCULAR VOLUME 89 fL (80-99); MEAN PLATELET VOLUME 9.6 fL (9.0-12.2); MONOCYTES # (AUTO) 0.7 10^3/uL (0.0-1.0); MONOCYTES % (AUTO) 7 % (0-12); NEUTROPHILS # (AUTO) 5.1 10^3/uL (1.8-7.8); NEUTROPHILS % (AUTO) 53 % (42-75); PLATELET COUNT 170 10^3/uL (130-400); WHITE BLOOD COUNT 9.7 10^3/uL (4.3-11.0)
[2022-03-11 19:04] LABS: PROTHROMBIN TIME PATIENT 13.1 SEC (12.2-14.7)
--- NOTE | 2022-03-11 19:04 | ED Chest Pain ---
General Chief Complaint: Chest Pain Stated Complaint: CHEST PAIN Nursing Triage Note: pt presents with c/o chest pain. reports having a pacemaker placed yesterday. reports today around 1600 after walking up 6 stairs the cp started. unable to describe the feeling. Source: patient, old records History of Present Illness Date Seen by Provider: March 11, 2022 Time Seen by Provider: 18:42 Initial Comments 81-year-old female presenting with complaints of "pain" in her chest that started around 4 PM. She had been at [facility] and then when she got home she had walked up 6 stairs. After walking up the stairs she had the chest pain started. She states that the pain is better when she sits down and rests but comes back when she gets up and moves around. She had called her cadence specialists at [place] as they had just placed a pacemaker yesterday. She states that the cadence specialists had advised her she needed to be seen for her chest pain and recommended she come to [place] to be seen. Since that would be over an hour drive she came here to the [facility] alone emergency department instead. She denies nausea, vomiting, abdominal pain, headache. She has chronic shortness of breath that is not any worse than usual for her. She has a history of chronic atrial fibrillation and recently was in ICU for several days due to pneumonia and Influenza. She does have a cardiac stent that was placed 2 years ago when she was in [place], but she denies ever having a heart attack. She states the cardiac cath was done to check on her heart and they found an area that they wanted stented but she had not been told she had a heart attack. Timing/Duration: 1-3 hours (since about 1600) Severity/Quality: moderate, aching Location: substernal Radiation: no radiation Activities at Onset: activity Prior CP/Workup: cardiac cath (with stent placement 2 years ago), other (Pacem francheska placed yesterday in [facility]) Modifying Factors: worse with exercise (activity makes her have pain); improves with rest (rest helps the pain go away) ASA po WASHING MACHINE REPAIRER: No NTG SL WASHING MACHINE REPAIRER: No Associated Symptoms: No abdominal pain, No back pain, No diaphoresis, No dizziness, No edema, No fatigue, No fever/chills, No headache, No heartburn, No nausea/vomiting, No rash, No shortness of breath, No swelling/lump in chest, No syncope, No weakness Allergies and Home Medications Allergies Coded Allergies: sulfamethoxazole (Verified Allergy, Unknown, 11/15/18) caused renal failure last time taken. trimethoprim (Verified Allergy, Unknown, 11/15/18) caused renal failure last time taken. Patient Home Medication List Home Medication List Reviewed: Yes Albuterol Sulfate (Ventolin Hfa) 18 Gm Hfa.aer.ad, 18 GM INH PRN, (Reported) Entered as Reported by: WALLY WARNER on 01/18/21 1046 Apixaban (Eliquis) 2.5 Mg Tablet, 2.5 MG PO BID, (Reported) Entered as Reported by: WALLY WARNER on 01/18/21 1046 Clopidogrel Bisulfate (Clopidogrel) 75 Mg Tablet, 75 MG PO DAILY, (Reported) Entered as Reported by: WALLY WARNER on 01/18/21 1046 Metoprolol Succinate (Metoprolol Succinate) 25 Mg Tab.er.24h, 25 MG PO HS, (Reported) Entered as Reported by: WALLY WARNER on 01/18/21 1046 Review of Systems Review of Systems Constitutional: No chills, No dizziness, No fever EENTM: No Symptoms Reported Respiratory: No Symptoms Reported Cardiovascular: See HPI Gastrointestinal: See HPI; Denies Nausea, Denies Vomiting Genitourinary: Denies Burning, Denies Pain Musculoskeletal: No back pain Skin: No rash Psychiatric/Neurological: Denies Headache Past Wyvgzdm-[id number]-Ztmzdz Hx Patient Social History Tobacco Use?: No Substance use?: No Alcohol Use?: No Immunizations Up To Date Influenza Vaccine Up-to-Date: No; Not Current Seasonal Allergies Seasonal Allergies: No Past Medical History Surgery/Hospitalization HX: Atrial Fibrillation, Pacemaker March 10, 2022, Cardiac Stent x 1 in 2019 Surgeries: Yes (LEFT HIP FX, CATARACTS) Coronary Stent (2019), Eye Surgery, Orthopedic, Pacemaker Respiratory: Yes (COPD, BRONCHITIS, BRONCHIECTASIS) COPD Currently Using CPAP: No Currently Using BIPAP: No Cardiac: Yes Atrial Fibrillation Neurological: No Genitourinary: Yes Bladder Infection, UTI-Chronic Gastrointestinal: No Musculoskeletal: No Arthritis Endocrine: No HEENT: Yes (CATARACT SURGERY) Cataract Cancer: No Psychosocial: No Integumentary: No Blood Disorders: No Adverse Reaction/Blood Tranf: No Physical Exam Vital Signs Vital Signs - First Documented 03/11/22 18:44 Pulse 96 Resp 18 B/P (MAP) 168/100 (122) Pulse Ox 96 O2 Delivery Room Air Capillary Refill : Height, Weight, BMI Height: 5'3.00" Weight: 130lbs. 0oz. [id number]; 19.00 BMI Method:Stated General Appearance: No Apparent Distress, WD/WN HEENT: PERRL/EOMI, Pharynx Normal Neck: Full Range of Motion, Normal Inspection, Non Tender, Supple Respiratory: Lungs Clear, Normal Breath Sounds, No Accessory Muscle Use, No Respiratory Distress, Other (tender to palpation around left upper chest wall where she has recent pacemaker placement) Cardiovascular: Regular Rate, Rhythm, Normal Peripheral Pulses Gastrointestinal: Normal Bowel Sounds, No Pulsatile Mass, Non Tender, Soft Rectal: Deferred Extremity: Normal Capillary Refill, Normal Inspection, No Pedal Edema Neurologic/Psychiatric: Alert, Oriented x3, clothing cutter II-XII Norm as Tested Skin: Normal Color, Warm/Dry Progress/Results/Core Measures Results/Orders Lab Results Laboratory Tests Test 03/11/22 18:50 03/11/22 20:21 Range/Units White Blood Count 9.7 4.3-11.0 10^3/uL Red Blood Count 4.34 3.80-5.11 10^6/uL Hemoglobin 12.4 11.5-16.0 g/dL Hematocrit 39 35-52 % Mean Corpuscular Volume 89 80-99 fL Mean Corpuscular Hemoglobin 29 25-34 pg Mean Corpuscular Hemoglobin Concent 32 32-36 g/dL Red Cell Distribution Width 15.3 H 10.0-14.5 % Platelet Count 170 130-400 10^3/uL Mean Platelet Volume 9.6 9.0-12.2 fL Immature Granulocyte % (Auto) 0 % Neutrophils (%) (Auto) 53 42-75 % Lymphocytes (%) (Auto) 32 12-44 % Monocytes (%) (Auto) 7 0-12 % Eosinophils (%) (Auto) 7 0-10 % Basophils (%) (Auto) 1 0-10 % Neutrophils # (Auto) 5.1 1.8-7.8 10^3/uL Lymphocytes # (Auto) 3.1 1.0-4.0 10^3/uL Monocytes # (Auto) 0.7 0.0-1.0 10^3/uL Eosinophils # (Auto) 0.7 H 0.0-0.3 10^3/uL Basophils # (Auto) 0.1 0.0-0.1 10^3/uL Immature Granulocyte # (Auto) 0.0 0.0-0.1 10^3/uL Prothrombin Time 13.1 12.2-14.7 SEC INR Comment 1.0 0.8-1.4 Activated Partial Thromboplast Time 25 24-35 SEC Sodium Level 141 135-145 MMOL/L Potassium Level 3.9 3.6-5.0 MMOL/L Chloride Level 107 98-107 MMOL/L Carbon Dioxide Level 20 L 21-32 MMOL/L Anion Gap 14 5-14 MMOL/L Blood Urea Nitrogen 26 H 7-18 MG/DL Creatinine 1.19 0.60-1.30 MG/DL Estimat Glomerular Filtration Rate 46 BUN/Creatinine Ratio 22 Glucose Level 135 H 70-105 MG/DL Calcium Level 9.1 8.5-10.1 MG/DL Corrected Calcium 9.2 8.5-10.1 MG/DL Magnesium Level 1.7 1.6-2.4 MG/DL Total Bilirubin 0.4 0.1-1.0 MG/DL Aspartate Amino Transf (AST/SGOT) 21 5-34 U/L Alanine Aminotransferase (ALT/SGPT) 9 0-55 U/L Alkaline Phosphatase 75 40-136 U/L Troponin I < 0.30 < 0.30 <0.30 NG/ML Pro-B-Type Natriuretic Peptide 384.6 H <75.0 PG/ML Total Protein 7.7 6.4-8.2 GM/DL Albumin 3.9 3.2-4.5 GM/DL Lipase 53 8-78 U/L My Orders Orders - KYLE KUO MD Ekg Tracing (03/11/22 18:42) Cbc With Automated Diff (03/11/22 18:56) Magnesium (03/11/22 18:56) Chest 1 View Ap/Pa Only (03/11/22 18:56) Comprehensive Metabolic Panel (03/11/22 18:56) Protime With Inr (03/11/22 18:56) Partial Thromboplastin Time (03/11/22 18:56) O2 (03/11/22 18:56) Monitor-Rhythm Ecg Trace Only (03/11/22 18:56) Aspirin Chewable Tablet (Baby Aspirin Ch (03/11/22 19:00) Ed Iv/Invasive Line Start (03/11/22 18:56) Lipase (03/11/22 18:56) Troponin I Fs (03/11/22 18:56) Probnp Fs (03/11/22 18:56) Ns Iv 1000 Ml (Sodium Chloride 0.9%) (03/11/22 18:58) Troponin I Fs (03/11/22 20:45) Medications Given in ED Current Medications Medications Dose Ordered Sig/Celina Route Start Time Stop Time Status Last Admin Dose Admin Aspirin 324 mg ONCE ONCE PO 03/11/22 19:00 03/11/22 19:01 DC 03/11/22 19:03 324 MG Vital Signs/I&O 03/11/22 03/11/22 03/11/22 03/11/22 18:44 19:00 19:13 20:24 Pulse 96 83 70 Resp 18 19 19 B/P (MAP) 168/100 (122) 112/62 126/67 Pulse Ox 96 96 97 98 O2 Delivery Room Air Room Air Room Air Blood Pressure Mean: 122 Progress Progress Note #1: Progress Note Check basic labs and CXR with ECG. Give aspirin 324 mg po for chest pain. Resting in the bed her aching in chest resolved. Give IVF 1 L NS for hydration since her blood pressure is 112/62 and she has initial heart rate in the 90s. Initial ECG negative for acute ST elevation. Continue to monitor on Cardiac Scrap Hooker for signs of ectopy, ST elevation or depression. Differential diagnosis includes musculoskeletal chest pain, pneumonia, my ocardial infarction, pulmonary embolism, dehydration, epigastric pain, esophageal spasm Progress Note #2: Time: 19:18 Progress Note Initial ECG tracing appears similar to one from 2019 and shows no acute ST e levation. On my review of 1 view CXR it continues to show diffuse interstitial fibrotic disease but no acute infiltrate or effusion or cardiomegaly. Pacemaker appears in good position. Labs show stable CBC without acute significant abnormality. Chemistry has negative troponin <0.3. BUN 26 and Cr 1.19 with slight elevation so she may be slightly dehydrated which could cause increased heart rate and stress on her system. Will recheck in 2 hours to see if any change in Troponin. Check in with cadence specialists plant protection guard at [place] and see if there is anything further they would want done. Progress Note #3: Time: 19:34 Progress Note Discussed with Dr. Giles, Head Bellhop Captain at [facility], about the test results and presentation of the patient. He agreed that provided the second troponin was still negative that the patient would be safe to be discharged home and follow-up with him during the clinic this next week. I updated the patient and family. They understand the plan and she continues to have no further pain while resting in the bed. Progress Note #4: Time: 20:47 Progress Note Repeat troponin is still less than 0.3. The chest x-ray does not show pneumothorax or acute process in the chest. We will continue with plan for discharge and follow-up with Dr. Martinez this next week. With standing the patient did report she was feeling a little bit of the discomfort coming back in her chest. Reassured that the cardiac enzymes were negative so this was not related to a heart attack and even with discussion with Dr. Giles he felt it was safe for her to go home and try to rest. It may be more musculoskeletal chest pain or pain from bruising with the pacemaker procedure done yesterday and then she was active this afternoon going to [facility] and then pain started after getting home. Initial ECG Impression Date: March 11, 2022 Initial ECG Impression Time: 18:46 Initial ECG Rate: 94 Initial ECG Rhythm: Normal Sinus Initial ECG Comparisson: Unchanged Comment Normal sinus rhythm with a heart rate of 94 bpm. WA interval [address] elevation. QT interval 342 ms with a QTc interval 393 ms. Overall the tracing appears similar to previous tracing from 2019. Diagnostic Imaging Diagonstic Imaging: Xray Plain Films/CT/US/NM/MRI: chest Comments [facility]. [place], [place] NAME: SUKH FROST [facility] REC#: [id number] PT STATUS: REG ER : 1940 PHYSICIAN: KYLE KUO MD ADMIT DATE: 03/11/22/ER FS Signed Date of Exam:03/11/22 CHEST 1 VIEW AP/PA ONLY EXAMINATION: Chest 1 view. HISTORY: Chest pain with exertion. Pacemaker placed yesterday. COMPARISON: 01/24/2019. FINDINGS: The lung volumes are normal. No focal consolidation is seen. Scattered chronic fibrotic changes are seen in the lungs. No large pleural effusion or pneumothorax is seen. The cardiomediastinal silhouette is normal in size and contour. Left pectoral pacemaker is in place. There is calcified aortic atherosclerotic plaque. No acute osseous abnormality is seen. IMPRESSION: 1. No acute pleuroparenchymal process. 2. Left-sided pacemaker in place. No evidence of pneumothorax. No mediastinal widening. Dictated by: Dictated on workstation # [id number] Dict: 03/11/222036 Trans: 03/11/222043 [facility] [id number] Interpreted by: MAU MCLEAN DO Electronically signed by: MAU MCLEAN DO 03/11/222043 Reviewed: Reviewed by Me Departure Impression Primary Impression: Chest pain on exertion Additional Impression: S/P placement of cardiac pacemaker Disposition: 01 HOME, SELF-CARE Condition: Stable Departure-Patient Inst. Decision time for Depature: 20:47 Referrals: GIOVANNI CAMPBELL MD (PCP) Primary Care Physician Patient Instructions: Pacemaker Insertion (DC), Chest Pain, Adult ED Add. Discharge Instructions: Stay well hydrated and drink plenty of fluids. Continue on medicines as prescribed by your regular providers. Check back with Dr. Giles this next week about your chest pain and the pacemaker. All discharge instructions reviewed with patient and/or family. Voiced understanding. KYLE KUO MD March 11, 2022 19:04
[2022-03-11 19:14] LABS: ALBUMIN 3.9 GM/DL (3.2-4.5); BILIRUBIN,TOTAL 0.4 MG/DL (0.1-1.0); CALCIUM 9.1 MG/DL (8.5-10.1); CREATININE SERUM 1.19 MG/DL (0.60-1.30); MAGNESIUM 1.7 MG/DL (1.6-2.4); POTASSIUM 3.9 MMOL/L (3.6-5.0); TOTAL PROTEIN 7.7 GM/DL (6.4-8.2)
--- NOTE | 2022-03-11 20:41 | Diagnostic Imaging Report ---
EXAMINATION: Chest 1 view. HISTORY: Chest pain with exertion. Pacemaker placed yesterday. COMPARISON: 01/24/2019. FINDINGS: The lung volumes are normal. No focal consolidation is seen. Scattered chronic fibrotic changes are seen in the lungs. No large pleural effusion or pneumothorax is seen. The cardiomediastinal silhouette is normal in size and contour. Left pectoral pacemaker is in place. There is calcified aortic atherosclerotic plaque. No acute osseous abnormality is seen. IMPRESSION: 1. No acute pleuroparenchymal process. 2. Left-sided pacemaker in place. No evidence of pneumothorax. No mediastinal widening. Dictated by: Dictated on workstation # [id number]
== END 2022-03-11 21:06 | disposition home or self-care (01) ==
LOC: EDUNIT# 18:41 → ER FS 18:42
DX: R07.89 Other chest pain (principal); Z95.0 Presence of cardiac pacemaker
CPT/HCPCS: 36415; 71045; 80053; 83690; 83735; 83880; 84484; 85025; 85610; 85730; 93041

== ENCOUNTER 2022-03-28 21:45 | Emergency (ER) | payer MEDICARE, MEDICAID ==
[~2022-03-28] VITALS: Ht 165.1 cm; Wt 49.0 kg
[2022-03-28] MEDS ORDERED: DILT180C48 PO (22:17)
[2022-03-28] MEDS ORDERED: ALPR0.5T7 PO (22:17)
[2022-03-28] MEDS ORDERED: ASPI-1238 PO (22:17)
[2022-03-28 22:22] LABS: BASOPHILS # (AUTO) 0.1 10^3/uL (0.0-0.1); BASOPHILS % (AUTO) 1 % (0-10); EOSINOPHILS # (AUTO) 0.4 10^3/uL (0.0-0.3); EOSINOPHILS % (AUTO) 3 % (0-10); HEMATOCRIT 41 % (35-52); HEMOGLOBIN 12.9 g/dL (11.5-16.0); LYMPHOCYTES # (AUTO) 4.9 10^3/uL (1.0-4.0); LYMPHOCYTES % (AUTO) 32 % (12-44); MEAN CORPUSCULAR HEMOGLOBIN 28 pg (25-34); MEAN CORPUSCULAR HGB CONC 32 g/dL (32-36); MEAN CORPUSCULAR VOLUME 89 fL (80-99); MEAN PLATELET VOLUME 8.7 fL (9.0-12.2); MONOCYTES # (AUTO) 1.6 10^3/uL (0.0-1.0); MONOCYTES % (AUTO) 11 % (0-12); NEUTROPHILS % (AUTO) 53 % (42-75); PLATELET COUNT 267 10^3/uL (130-400)
[2022-03-28] MEDS ORDERED: dilTIAZem DRIP PRE-MIX 125 ML IV SCH (22:30)
--- NOTE | 2022-03-28 22:35 | Diagnostic Imaging Report ---
CHEST 1 VIEW AP/PA ONLY Indication: Shortness of air Comparison: 03/11/2022 Findings: Increasing bibasilar reticular and nodular opacities. No pleural effusion or pneumothorax. Normal cardiac silhouette. Impression: 1. Increasing basilar reticular and nodular opacities are most likely due to an infectious process. Alternatively, aspiration could give this appearance. Dictated by: Dictated on workstation # [id number]
[2022-03-28 22:40] LABS: ALANINE AMINOTRANSFERASE 25 U/L (0-55); ALKALINE PHOSPHATASE 88 U/L (40-136); BILIRUBIN,TOTAL 0.7 MG/DL (0.1-1.0); BUN/CREATININE RATIO 17; CALCIUM 9.7 MG/DL (8.5-10.1); CARBON DIOXIDE 23 MMOL/L (21-32); CHLORIDE 102 MMOL/L (98-107); CREATININE SERUM 1.16 MG/DL (0.60-1.30); GFR ESTIMATED 47; GLUCOSE 122 MG/DL (70-105); POTASSIUM 4.2 MMOL/L (3.6-5.0); SODIUM 138 MMOL/L (135-145); TOTAL PROTEIN 8.1 GM/DL (6.4-8.2)
[2022-03-28 22:41] LABS: ALBUMIN 4.2 GM/DL (3.2-4.5); ANISOCYTOSIS SLIGHT; ATYPICAL LYMPHOCYTES 18 %; EOSINOPHILS % (MANUAL) 2 %; LYMPHOCYTES % (MANUAL) 19 %; MONOCYTES % (MANUAL) 9 %; NEUTROPHILS % (MANUAL) 52 %
[2022-03-28] MEDS ORDERED: ONDANSETRON 4 MG/2 ML (SDV) Z0FRAN IVP ONE (22:45)
[2022-03-28] MEDS ORDERED: fentaNYL INJ 100 MCG/2 ML AMP IVP ONE (22:45)
[2022-03-28] MEDS ORDERED: NS IV 1000 ML 1,000 ML IV SCH (23:15)
[2022-03-29] MEDS ORDERED: FUROSEMIDE 40 MG/4 ML INJ (LASIX) IVP ONE (01:15)
[2022-03-29] MEDS ORDERED: NITROGLYCERIN 0.4 MG SL TABS BTL 25'S SL PRN (02:15)
[2022-03-29] MEDS ORDERED: HOLD METFORMIN - RECEIVED CONTRAST 20 ML VIAL IV SCH (02:45)
[2022-03-29] MEDS ORDERED: NS 100 ML (IVPB) BAG IV ONE (02:45)
[2022-03-29] MEDS ORDERED: CATHETER FLUSH 10 ML SYR IV PRN (02:45)
[2022-03-29] MEDS ORDERED: IOHEXOL 350 MG/ML 100 ML (OMNIPAQUE 350) VIAL IV ONE (02:45)
--- NOTE | 2022-03-29 04:30 | ED Cardiac General ---
History of Present Illness General Chief Complaint: Cardiac/General Problems Stated Complaint: CP,BACK PAIN Nursing Triage Note: Patient arrives per POV driving self to ED reporting CP describes as "bursitis". Pt ambulated to ED 5 and placed on monitor. Pt had a pacemaker placement 3 weeks ago and was reportedly off Eliquis for 5 days recently and should of started today but hadn't. Hx of Paroxysmal A Fib. Describes inspirational pain worsening the feeling of heart beating felt. Denies SOA Source: patient Exam Limitations: no limitations History of Present Illness Date Seen by Provider: March 28, 2022 Time Seen by Provider: 21:45 Initial Comments Patient is an 81-year-old female with recent pacemaker placement at [facility] who presents with increasing shortness of breath and palpitation s. Patient also states shortness of breath is worse with deep breathing. History of paroxysmal atrial fibrillation currently off of Eliquis due to recent pacemaker insertion. Patient is currently in A. fib with ventricular rate of 120s to 140s and systolic pressure of 100. Denies fever chills, cough, sore throat. Treated for recent pneumonia. Patient denies increased leg pain or swelling. 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 trimethoprim (Verified Allergy, Unknown, 11/15/18) caused renal failure last time taken. Patient Home Medication List Home Medication List Reviewed: Yes Alprazolam (Alprazolam) 0.5 Mg Tablet, 0.5 MG PO TID PRN for ANXIETY, (Reported) Entered as Reported by: JULIA DELAROSA on 03/28/222216 Last Action: New Order Apixaban (Eliquis) 2.5 Mg Tablet, 2.5 MG PO BID, (Reported) Entered as Reported by: WALLY WARNER on 01/18/21 1046 Aspirin (Aspirin EC) 81 Mg Tablet.dr, 81 MG PO DAILY, (Reported) Entered as Reported by: JULIA DELAROSA on 03/28/222216 Last Action: New Order Diltiazem HCl (Dilt-Xr) 180 Mg Cap.er.deg, 180 MG PO DAILY, (Reported) Entered as Reported by: JULIA DELAROSA on 03/28/222216 Last Action: New Order Discontinued Medications Albuterol Sulfate (Ventolin Hfa) 18 Gm Hfa.aer.ad, 18 GM INH PRN, (Reported) Discontinued Reason: Referral/FU Appt-Addtl Entered as Reported by: WALLY WARNER on 01/18/21 104 Last Action: Discontinued Clopidogrel Bisulfate (Clopidogrel) 75 Mg Tablet, 75 MG PO DAILY, (Reported) Discontinued Reason: Referral/FU Appt-Addtl Entered as Reported by: WALLY WARNER on 01/18/21 104 Last Action: Discontinued Metoprolol Succinate (Metoprolol Succinate) 25 Mg Tab.er.24h, 25 MG PO HS, (Reported) Discontinued Reason: Referral/FU Appt-Addtl Entered as Reported by: WALLY WARNER on 01/18/211045 Last Action: Discontinued Review of Systems Review of Systems Constitutional: see HPI EENTM: See HPI Respiratory: See HPI Cardiovascular: See HPI Gastrointestinal: See HPI Genitourinary: See HPI Musculoskeletal: see HPI Skin: see HPI Psychiatric/Neurological: See HPI Endocrine: See HPI Hematologic/Lymphatic: See HPI All Other Systems Reviewed Negative Unless Noted: Yes Past Tuyzuzs-Xbdkbt-Vwrvuc Hx Patient Social History Tobacco Use?: No Smokeless Tobacco Frequency: Former User Substance use?: No Alcohol Use?: Yes Alcohol type: Beer Alcohol Frequency: Rarely Pt feels they are or have been: No Seasonal Allergies Seasonal Allergies: No Past Medical History Surgery/Hospitalization HX: Paroxysmal Atrial Fibrillation, Pacemaker March 10, 2022, Hx pericardial effusion, Cardiac Stent x 1 in 2019, Interstitual Pulmonary Dz, Anxiety, HTN, CKD, Hyperlipidemia, UTI's Surgeries: Yes (LEFT HIP FX, CATARACTS) Coronary Stent, Eye Surgery, Orthopedic, Pacemaker Respiratory: Yes (COPD, BRONCHITIS, BRONCHIECTASIS) COPD Currently Using CPAP: No Currently Using BIPAP: No Cardiac: Yes Atrial Fibrillation Neurological: No Genitourinary: Yes Bladder Infection, UTI-Chronic Gastrointestinal: No Musculoskeletal: No Arthritis Endocrine: No HEENT: Yes (CATARACT SURGERY) Cataract Cancer: No Psychosocial: No Integumentary: No Blood Disorders: No Adverse Reaction/Blood Tranf: No Physical Exam Vital Signs Vital Signs - First Documented 03/28/22 21:53 Temp 37.2 Pulse 122 Resp 34 B/P (MAP) 130/75 (93) Pulse Ox 96 O2 Delivery Room Air Capillary Refill : Less Than 3 Seconds Height, Weight, BMI Height: 5'3.00" Weight: 130lbs. 0oz. [id number]; 17.00 BMI Method:Stated General Appearance: No Apparent Distress, WD/WN, Anxious HEENT: PERRL/EOMI Neck: Normal Inspection, Non Tender Respiratory: Decreased Breath Sounds, Stridor Cardiovascular: Irregularly Irregular, Tachycardia Gastrointestinal: Non Tender, Soft Extremity: Normal Capillary Refill, Non Tender Neurologic/Psychiatric: Oriented x3, Normal Mood/Affect Progress/Results/Core Measures Results/Orders Lab Results Laboratory Tests Test 03/28/22 22:10 03/29/22 01:10 Range/Units White Blood Count 15.0 H 4.3-11.0 10^3/uL Red Blood Count 4.56 3.80-5.11 10^6/uL Hemoglobin 12.9 11.5-16.0 g/dL Hematocrit 41 35-52 % Mean Corpuscular Volume 89 80-99 fL Mean Corpuscular Hemoglobin 28 25-34 pg Mean Corpuscular Hemoglobin Concent 32 32-36 g/dL Red Cell Distribution Width 15.5 H 10.0-14.5 % Platelet Count 267 130-400 10^3/uL Mean Platelet Volume 8.7 L 9.0-12.2 fL Immature Granulocyte % (Auto) 0 % Neutrophils (%) (Auto) 53 42-75 % Lymphocytes (%) (Auto) 32 12-44 % Monocytes (%) (Auto) 11 0-12 % Eosinophils (%) (Auto) 3 0-10 % Basophils (%) (Auto) 1 0-10 % Neutrophils # (Auto) 8.0 H 1.8-7.8 10^3/uL Lymphocytes # (Auto) 4.9 H 1.0-4.0 10^3/uL Monocytes # (Auto) 1.6 H 0.0-1.0 10^3/uL Eosinophils # (Auto) 0.4 H 0.0-0.3 10^3/uL Basophils # (Auto) 0.1 0.0-0.1 10^3/uL Immature Granulocyte # (Auto) 0.1 0.0-0.1 10^3/uL Neutrophils % (Manual) 52 % Lymphocytes % (Manual) 19 % Monocytes % (Manual) 9 % Eosinophils % (Manual) 2 % Atypical Lymphocytes 18 % Anisocytosis SLIGHT D-Dimer 1.62 H 0.00-0.49 UG/ML Sodium Level 138 135-145 MMOL/L Potassium Level 4.2 3.6-5.0 MMOL/L Chloride Level 102 98-107 MMOL/L Carbon Dioxide Level 23 21-32 MMOL/L Anion Gap 13 5-14 MMOL/L Blood Urea Nitrogen 20 H 7-18 MG/DL Creatinine 1.16 0.60-1.30 MG/DL Estimat Glomerular Filtration Rate 47 BUN/Creatinine Ratio 17 Glucose Level 122 H 70-105 MG/DL Calcium Level 9.7 8.5-10.1 MG/DL Corrected Calcium 9.5 8.5-10.1 MG/DL Total Bilirubin 0.7 0.1-1.0 MG/DL Aspartate Amino Transf (AST/SGOT) 38 H 5-34 U/L Alanine Aminotransferase (ALT/SGPT) 25 0-55 U/L Alkaline Phosphatase 88 40-136 U/L Troponin I < 0.30 < 0.30 <0.30 NG/ML Pro-B-Type Natriuretic Peptide 1392.0 H <75.0 PG/ML Total Protein 8.1 6.4-8.2 GM/DL Albumin 4.2 3.2-4.5 GM/DL My Orders Orders - BIJAN MANZANARES DO Cbc With Automated Diff (03/28/22 22:15) Comprehensive Metabolic Panel (03/28/22 22:15) Troponin I Fs (03/28/22 22:15) Chest 1 View Ap/Pa Only (03/28/22 22:15) Ekg Tracing (03/28/22 22:15) Probnp Fs (03/28/22 22:20) Diltiazem Injection (Cardizem Injection) (03/28/22 22:30) Diltiazem Drip Pre-Mix (Cardizem Drip Pr (03/28/22 22:30) Manual Differential (03/28/22 22:10) Fentanyl Inj (Sublimaze Injection) (03/28/22 22:45) Ondansetron Injection (Zofran Injectio (03/28/22 22:45) Ed Iv/Invasive Line Start (03/28/22 23:05) Ns Iv 1000 Ml (Sodium Chloride 0.9%) (03/28/22 23:15) Furosemide Injection (Lasix Injection) (03/29/22 01:15) Troponin I Fs (03/29/22 01:26) Nitroglycerin 0.4 Mg Btl 25's (Nitrostat (03/29/22 02:15) Fibrin Degradation Products (03/29/22 02:07) Ct Angio Chest W (03/29/22 02:31) Iohexol Injection (Omnipaque 350 Mg/Ml 1 (03/29/22 02:45) Received Contrast (Hold Metformin- Contr (03/29/22 02:45) Sodium Chloride Flush (Catheter Flush Sy (03/29/22 02:45) Ns (Ivpb) (Sodium Chloride 0.9% Ivpb Bag (03/29/22 02:45) Medications Given in ED Current Medications Medications Dose Ordered Sig/Celina Route Start Time Stop Time Status Last Admin Dose Admin Diltiazem HCl 10 mg ONCE ONCE IVP 03/28/22 22:30 03/28/22 22:31 DC 03/28/22 22:43 10 MG Fentanyl Citrate 25 mcg ONCE ONCE IVP 03/28/22 22:45 03/28/22 22:46 DC 03/28/22 22:44 25 MCG Furosemide 20 mg ONCE ONCE IVP 03/29/22 01:15 03/29/22 01:16 DC 03/29/22 01:21 20 MG Iohexol 100 ml ONCE ONCE IV 03/29/22 02:45 03/29/22 02:46 DC 03/29/22 03:11 100 ML Nitroglycerin 1 TAB Q 5 MIN X 3 NEEDED PRN SL 03/29/22 02:15 03/29/22 02:12 0.4 MG Ondansetron HCl 4 mg ONCE ONCE IVP 03/28/22 22:45 03/28/22 22:46 DC 03/28/22 22:44 4 MG Sodium Chloride 10 ml NEEDED PRN IV 03/29/22 02:45 03/29/22 03:12 10 ML Sodium Chloride 100 ml ONCE ONCE IV 03/29/22 02:45 03/29/22 02:46 DC 03/29/22 03:12 100 ML Vital Signs/I&O 03/28/22 21:53 Temp 37.2 Pulse 122 Resp 34 B/P (MAP) 130/75 (93) Pulse Ox 96 O2 Delivery Room Air Blood Pressure Mean: 93 Departure Communication (Admissions) CTA chest: No definitive PE, small pericardial effusion, bronchiectasis with mucoid disease suggestive of Aspergillus per radiology report EKG: A. fib RVR Patient with dyspnea, tachypnea with A. fib with RVR CTA findings of pneumonia. Rate controlled on Cardizem, Lasix given. Blood pressure stable. Patient resting comfortably. Patient accepted to [facility] to Dr. Dee Ellis. Impression Primary Impression: Atrial fibrillation with RVR Additional Impressions: Congestive heart failure Bronchiectasis Disposition: XFER SHT-TRM HOSP Condition: Stable Transfer Transfer Reason: Exceeds level of care Time Spoke to Accepting Phy: 04:30 (Dee Ellis) Method of Transfer: EMS Departure-Patient Inst. Referrals: GIOVANNI CAMPBELL MD (PCP/Family) Primary Care Physician BIJAN MANZANARES DO March 29, 2022 04:30
[2022-03-29] MEDS ORDERED: NS IV 1000 ML 1,000 ML IV SCH (07:00)
--- NOTE | 2022-03-29 07:09 | Diagnostic Imaging Report ---
Clinical indications: Patient with elevated d-dimer and chest pain. Patient with history of Mycobacterium avium infection. Exam: CT angiogram of the chest performed with 100 cc Omnipaque 350 IV contrast. Coronal and oblique MIP images of the vasculature were created to better evaluate anatomy. Auto Exposure Controls were utilized during the CT exam to meet ALARA standards for radiation dose reduction. Comparison: CT scan of the chest without contrast dated 06/26/2020. Findings: There is no thoracic aortic aneurysm or dissection. There is mild to moderate narrowing involving the origin of the celiac artery. There is no evidence of pulmonary embolism. There is a moderate sized pericardial effusion which has progressed in interim. There is bronchiectasis seen throughout both lungs which was also noted on the prior chest CT scan. There is interval progression of increased mucous plugging throughout both lungs. There is stable scarring in the right lung apex. There is no pleural effusion or pneumothorax. There is no significant mediastinal or hilar lymphadenopathy. There is no axillary lymphadenopathy. Visualized upper abdominal structures show no significant abnormality. There are small spurs involving the thoracic spine. Cardiac pacemaker seen overlying left chest. IMPRESSION: 1: There is no evidence of pulmonary embolism. There is no thoracic aortic aneurysm or dissection. 2: There is diffuse bronchiectasis involving both lungs with progression of mucus plugging. These findings correlate with patient's history of mycobacterium avium complex infection. 3: Remainder of this exam shows no other acute abnormality. I Agree With [facility] Report. Dictated by: Dictated on workstation # [id number]
[2022-03-29 07:10] VITALS: BP 88/47
== END 2022-03-29 07:10 | disposition short-term general hospital (02) ==
LOC: EDUNIT# 21:45 → ER FS 21:46
DX: I13.0 Hypertensive heart and chronic kidney disease with heart failure and stage 1 through stage 4 chronic kidney disease, or unspecified chronic kidney disease (principal); I50.9 Heart failure, unspecified; N18.9 Chronic kidney disease, unspecified; J47.9 Bronchiectasis, uncomplicated; I48.91 Unspecified atrial fibrillation; Z87.01 Personal history of pneumonia (recurrent); Z95.5 Presence of coronary angioplasty implant and graft; Z87.891 Personal history of nicotine dependence
CPT/HCPCS: 36415; 71045; 71275; 80053; 83880; 84484; 85007; 85027; 85379; 93005

== ENCOUNTER 2022-04-16 12:32 | Emergency (ER) | payer MEDICARE, MEDICAID ==
[~2022-04-16 12:32] MED LIST changes: +ALPR0.5T7 PO; +ASPI-1238 PO; +DILT180C48 PO
[2022-04-16 12:43] LABS: BASOPHILS # (AUTO) 0.1 10^3/uL (0.0-0.1); BASOPHILS % (AUTO) 0 % (0-10); EOSINOPHILS % (AUTO) 0 % (0-10); HEMATOCRIT 35 % (35-52); HEMOGLOBIN 11.2 g/dL (11.5-16.0); LYMPHOCYTES # (AUTO) 1.2 10^3/uL (1.0-4.0); LYMPHOCYTES % (AUTO) 8 % (12-44); MEAN CORPUSCULAR HEMOGLOBIN 29 pg (25-34); MEAN CORPUSCULAR HGB CONC 32 g/dL (32-36); MEAN CORPUSCULAR VOLUME 90 fL (80-99); MEAN PLATELET VOLUME 9.8 fL (9.0-12.2); MONOCYTES # (AUTO) 0.8 10^3/uL (0.0-1.0); MONOCYTES % (AUTO) 6 % (0-12); NEUTROPHILS # (AUTO) 12.5 10^3/uL (1.8-7.8); NEUTROPHILS % (AUTO) 85 % (42-75); PLATELET COUNT 202 10^3/uL (130-400); WHITE BLOOD COUNT 14.7 10^3/uL (4.3-11.0)
--- NOTE | 2022-04-16 12:46 | ED Neurological Problem ---
General Stated Complaint: STROKE SYMPTOMS Source: patient, family, EMS Exam Limitations: no limitations History of Present Illness Date Seen by Provider: Apr 16, 2022 Time Seen by Provider: 12:31 Initial Comments 81-year-old female with past medical history of A. fib with a pacemaker, COPD, hypertension coming in via EMS from home due to concerns for stroke. The patient fell out of her bed, was found down by her son, he called EMS. On their arrival she was laying on the floor, unable to really move her left side. Glucose was 106. Vitals were within normal limits for them. Patient has no prior history of stroke that she knows of. She is unsure how long she is on the ground, guesses it could have been around 2 hours. She denies any history of brain surgery, brain tumor, recent trauma other than the fall from the bed, chest pain, shortness of breath, abdominal pain, nausea, vomiting, diarrhea, fever, or any other concerns. Allergies and Home Medications Allergies Coded Allergies: sulfamethoxazole (Verified Allergy, Unknown, 11/15/18) caused renal failure last time taken. trimethoprim (Verified Allergy, Unknown, 11/15/18) caused renal failure last time taken. Patient Home Medication List Home Medication List Reviewed: Yes Alprazolam (Alprazolam) 0.5 Mg Tablet, 0.5 MG PO TID PRN for ANXIETY, (Reported) Entered as Reported by: JULIA DELAROSA on 03/28/222216 Apixaban (Eliquis) 2.5 Mg Tablet, 2.5 MG PO BID, (Reported) Entered as Reported by: WALLY WARNER on 01/18/21 104 Aspirin (Aspirin EC) 81 Mg Tablet.dr, 81 MG PO DAILY, (Reported) Entered as Reported by: JULIA DELAROSA on 03/28/222216 Diltiazem HCl (Dilt-Xr) 180 Mg Cap.er.deg, 180 MG PO DAILY, (Reported) Entered as Reported by: JULIA DELAROSA on 03/28/222216 Review of Systems Review of Systems Constitutional: No fever Eyes: Denies Blurred Vision Ears, Nose, Mouth, Throat: no symptoms reported Respiratory: no symptoms reported Gastrointestinal: no symptoms reported Genitourinary: no symptoms reported Musculoskeletal: No back pain Skin: no symptoms reported Psychiatric/Neurological: Numbness, Weakness Endocrine: No Symptoms Reported Hematologic/Lymphatic: No Symptoms Reported All Other Systems Reviewed Negative Unless Noted: Yes Past Bmslfmw-Fzcsis-Atkvmf Hx Patient Social History Tobacco Use?: No Seasonal Allergies Seasonal Allergies: No Past Medical History Surgery/Hospitalization HX: Paroxysmal Atrial Fibrillation, Pacemaker March 10, 2022, Hx pericardial effusion, Cardiac Stent x 1 in 2019, Interstitual Pulmonary Dz, Anxiety, HTN, CKD, Hyperlipidemia, UTI's Surgeries: Yes (LEFT HIP FX, CATARACTS) Coronary Stent, Eye Surgery, Orthopedic, Pacemaker Respiratory: Yes (COPD, BRONCHITIS, BRONCHIECTASIS) COPD Currently Using CPAP: No Currently Using BIPAP: No Cardiac: Yes Atrial Fibrillation Neurological: No Genitourinary: Yes Bladder Infection, UTI-Chronic Gastrointestinal: No Musculoskeletal: No Arthritis Endocrine: No HEENT: Yes (CATARACT SURGERY) Cataract Cancer: No Psychosocial: No Integumentary: No Blood Disorders: No Adverse Reaction/Blood Tranf: No Physical Exam Vital Signs Vital Signs - First Documented 04/16/22 12:48 Temp 36.3 Pulse 70 Resp 18 Pulse Ox 96 O2 Delivery Room Air Capillary Refill : Height, Weight, BMI Height: 5'3.00" Weight: 130lbs. 0oz. 58.684099zs; 17.00 BMI Method:Stated General Appearance: WD/WN, no apparent distress HEENT: normal ENT inspection, pharynx normal, other (PERRL, left sided neglect, eyes will not cross midline) Neck: non-tender, full range of motion, supple, normal inspection Respiratory: chest non-tender, lungs clear, normal breath sounds, no respiratory distress, no accessory muscle use Cardiovascular: regular rate, rhythm, no edema, no murmur Gastrointestinal: normal bowel sounds, non tender, soft; No distended, No guarding, No rebound Back: normal inspection, no CVA tenderness, no vertebral tenderness Extremities: non-tender, normal inspection, no pedal edema, no calf tenderness, normal capillary refill, other (Normal passive range of motion of all joints, patient unable to move left arm, barely able to lift left leg) Neurologic/Psychiatric: alert, oriented x 3, facial droop, motor weakness, sensory deficit Crainal Nerves: normal hearing, abnormal speech (Slightly slurred but able to understand), facial asymmetry, other (Right-sided gaze preference, would not cross midline left) Coordination/Gait: normal finger to nose (With right hand, unable to do with left) Motor/Sensory: weak motor strength LUE, weak motor strength LLE Skin: normal color, warm/dry Lymphatic: no adenopathy Stroke Onset of Symptoms Date of Onset of Symptoms: Apr 16, 2022 Symptoms onset unknown: Yes NIH Stroke Scale Assessment Select: Initial Level of Consciousness: 0=Alert (0), Level of Consciousness- Questions: 0=Answers both month/age (0), LOC Commands: 0=Performs both tasks (0), Gaze: Partial Gaze Palsy (1), Visual Cisneros: 0=No visual loss (0), Facial Movement (Facial Paresis): 2=Partial paralysis (2), Motor Function- Arms Right: 0=No drift (0), Motor Function-Arms Left: 3=No effort/gravity (3), Motor Function-Legs Right: 1=Drift (1), Motor Function-Legs Left: 2=Some effort/gravity (2), Limb Ataxia: 0=Absent (0), Sensory: 2=Severe to total loss (2), Best Language: 0=No aphasia (0), Dysarthria: 1=Mild to moderate loss (1), Extinction & Inattention: 1=Visual,tactile,auditory (1), Total: 13 Progress/Results/Core Measures Results/Orders Lab Results Laboratory Tests Test 04/16/22 12:36 04/16/22 13:00 Range/Units White Blood Count 14.7 H 4.3-11.0 10^3/uL Red Blood Count 3.86 3.80-5.11 10^6/uL Hemoglobin 11.2 L 11.5-16.0 g/dL Hematocrit 35 35-52 % Mean Corpuscular Volume 90 80-99 fL Mean Corpuscular Hemoglobin 29 25-34 pg Mean Corpuscular Hemoglobin Concent 32 32-36 g/dL Red Cell Distribution Width 14.0 10.0-14.5 % Platelet Count 202 130-400 10^3/uL Mean Platelet Volume 9.8 9.0-12.2 fL Immature Granulocyte % (Auto) 1 % Neutrophils (%) (Auto) 85 H 42-75 % Lymphocytes (%) (Auto) 8 L 12-44 % Monocytes (%) (Auto) 6 0-12 % Eosinophils (%) (Auto) 0 0-10 % Basophils (%) (Auto) 0 0-10 % Neutrophils # (Auto) 12.5 H 1.8-7.8 10^3/uL Lymphocytes # (Auto) 1.2 1.0-4.0 10^3/uL Monocytes # (Auto) 0.8 0.0-1.0 10^3/uL Eosinophils # (Auto) 0.0 0.0-0.3 10^3/uL Basophils # (Auto) 0.1 0.0-0.1 10^3/uL Immature Granulocyte # (Auto) 0.1 0.0-0.1 10^3/uL Prothrombin Time 14.5 12.2-14.7 SEC INR Comment 1.1 0.8-1.4 Sodium Level 134 L 135-145 MMOL/L Potassium Level 5.2 H 3.6-5.0 MMOL/L Chloride Level 101 98-107 MMOL/L Carbon Dioxide Level 12 L 21-32 MMOL/L Anion Gap 21 H 5-14 MMOL/L Blood Urea Nitrogen 30 H 7-18 MG/DL Creatinine 1.81 H 0.60-1.30 MG/DL Estimat Glomerular Filtration Rate 28 BUN/Creatinine Ratio 17 Glucose Level 102 70-105 MG/DL Calcium Level 9.8 8.5-10.1 MG/DL Corrected Calcium 10.0 8.5-10.1 MG/DL Total Bilirubin 0.7 0.1-1.0 MG/DL Aspartate Amino Transf (AST/SGOT) 38 H 5-34 U/L Alanine Aminotransferase (ALT/SGPT) 32 0-55 U/L Alkaline Phosphatase 105 40-136 U/L Troponin I < 0.30 <0.30 NG/ML Total Protein 7.6 6.4-8.2 GM/DL Albumin 3.8 3.2-4.5 GM/DL Urine Color YELLOW Urine Clarity CLEAR Urine pH 6.0 5-9 Urine Specific [facility] >=1.030 1.016-1.022 Urine Protein 2+ H NEGATIVE Urine Glucose (UA) NEGATIVE NEGATIVE Urine Ketones 1+ H NEGATIVE Urine Nitrite NEGATIVE NEGATIVE Urine Bilirubin 2+ H NEGATIVE Urine Urobilinogen 0.2 < = 1.0 MG/DL Urine Leukocyte Esterase NEGATIVE NEGATIVE Urine RBC (Auto) 2+ H NEGATIVE Urine RBC NONE /HPF Urine WBC 25-50 H /HPF Urine Squamous Epithelial Cells NONE /HPF Urine Crystals NONE /LPF Urine Bacteria TRACE /HPF Urine Casts PRESENT /LPF Urine Hyaline Casts 0-2 H /LPF Urine Granular Casts 2-5 H /LPF Urine Mucus NEGATIVE /LPF Urine Culture Indicated YES My Orders Orders - YOUNG CORTEZ MD Cbc With Automated Diff (04/16/22 12:38) Protime With Inr (04/16/22 12:38) Partial Thromboplastin Time (04/16/22 12:38) Comprehensive Metabolic Panel (04/16/22 12:38) Fibrin Degradation Products (04/16/22 12:38) Troponin I Fs (04/16/22 12:38) Ua Culture If Indicated (04/16/22 12:38) Chest 1 View Ap/Pa Only (04/16/22 12:38) Catheter(Urinary) Insert & Ass 03,15 (04/16/22 12:38) Ekg Tracing (04/16/22 12:38) Accucheck Stat ONCE (04/16/22 12:38) Ed Iv/Invasive Line Start (04/16/22 12:38) Ed Iv/Invasive Line Start (04/16/22 12:38) Vital Signs Stroke Patient Q15M (04/16/22 12:38) Ct Head Wo-R/O Stroke (04/16/22 12:38) O2 (04/16/22 12:38) Intake & Output 06,14,22 (04/16/22 12:38) Monitor-Rhythm Ecg Trace Only (04/16/22 12:38) Dysphagia Screening Tool [id number] (04/16/22 12:38) Manual Differential (04/16/22 12:36) Urine Culture (04/16/22 13:00) Vital Signs/I&O 04/16/22 12:48 Temp 36.3 Pulse 70 Resp 18 B/P (MAP) Pulse Ox 96 O2 Delivery Room Air Initial ECG Impression Date: Apr 16, 2022 Initial ECG Impression Time: 13:05 Initial ECG Rate: 69 Initial ECG Rhythm: Normal Sinus Comment ventricular paced rhythm Diagnostic Imaging Diagonstic Imaging: Xray (chest), CT (head) Comments NAME: SUKH FROST REC#: [id number] PT STATUS: REG ER : 1940 PHYSICIAN: YOUNG CORTEZ MD ADMIT DATE: 04/16/22/ER FS Draft Date of Exam:04/16/22 CT HEAD WO-R/O STROKE EXAMINATION: CT head without contrast. TECHNIQUE: Multiple contiguous axial images were obtained through the brain without the use of intravenous contrast. All CT scans use one or more of the following dose optimizing techniques: automated exposure control, MA and/or KvP adjustment based on patient size and exam type or iterative reconstruction. HISTORY: Left-sided weakness. COMPARISON: None available. FINDINGS: Dense MCA sign is seen on the right. No CT evidence of large acute territorial ischemia. No acute hemorrhage or midline shift. The ventricles and cortical sulci are prominent. The basilar cisterns are clear. The orbits are normal. Paranasal sinuses are normal. Mastoid air cells are clear. No soft tissue abnormality is seen. No osseus lesions or fractures are seen. IMPRESSION: 1. Dense MCA sign on the right, concerning for acute thrombus. Recommend CTA of the head and neck to further evaluate. 2. No CT evidence of large acute territorial ischemia. No acute hemorrhage or mass. 3. Generalized parenchymal volume loss. Findings were called to the emergency department at 12:50 PM on 04/16/[address] Mau Amaro. Dictated on workstation # [id number] Dict: 04/16/22 1249 Trans: 04/16/22 1256 [facility] [id number] Interpreted by: MAU AMARO DO Electronically signed by: Departure Impression Primary Impression: Acute right MCA stroke Disposition: XF T-TRM HOSP Condition: Stable Admissions Decision to Admit/Date: Apr 16, 2022 Time/Decision to Admit Time: 13:00 Transfer Transfer Reason: Exceeds level of care Time Spoke to Accepting Phy: 13:00 Transfer Progress Notes 81-year-old female with above history coming in with strokelike symptoms. NIH stroke scale 13. Based on the story, it is very unclear when the patient actually was last normal. Thoughts unclear if she is on Eliquis currently. She also recently had a pericardiocentesis making her slightly more risk. I contacted the neurologist on-call at , Dr. Sharma, and he agrees that based on the story we should not give tPA. Imaging concerning for dense MCA sign on the right with some early ischemic changes. Dr. Sharma accepted for further evaluation and potential intervention such as thrombectomy. Discussed the case with the patient's family and the patient, they are agreeable to this at this time and they would like any chance at success to have some of her function back. Transfer Facility: [facility] Method of Transfer: Air Departure-Patient Inst. Referrals: GIOVANNI CAMPBELL MD (PCP/Family) Primary Care Physician YOUNG CORTEZ MD Apr 16, 2022 12:46
--- NOTE | 2022-04-16 12:56 | Diagnostic Imaging Report ---
EXAMINATION: CT head without contrast. TECHNIQUE: Multiple contiguous axial images were obtained through the brain without the use of intravenous contrast. All CT scans use one or more of the following dose optimizing techniques: automated exposure control, MA and/or KvP adjustment based on patient size and exam type or iterative reconstruction. HISTORY: Left-sided weakness. COMPARISON: None available. FINDINGS: Dense MCA sign is seen on the right. No CT evidence of large acute territorial ischemia. No acute hemorrhage or midline shift. The ventricles and cortical sulci are prominent. The basilar cisterns are clear. The orbits are normal. Paranasal sinuses are normal. Mastoid air cells are clear. No soft tissue abnormality is seen. No osseus lesions or fractures are seen. IMPRESSION: 1. Dense MCA sign on the right, concerning for acute thrombus. Recommend CTA of the head and neck to further evaluate. 2. No CT evidence of large acute territorial ischemia. No acute hemorrhage or mass. 3. Generalized parenchymal volume loss. Findings were called to the emergency department at 12:50 PM on 04/16/[address] Benny Amaro. Dictated by: Dictated on workstation # [id number]
[2022-04-16 13:00] LABS: INR 1.1 (0.8-1.4); PROTHROMBIN TIME PATIENT 14.5 SEC (12.2-14.7)
[2022-04-16 13:01] LABS: ALANINE AMINOTRANSFERASE 32 U/L (0-55); ALBUMIN 3.8 GM/DL (3.2-4.5); ALKALINE PHOSPHATASE 105 U/L (40-136); BILIRUBIN,TOTAL 0.7 MG/DL (0.1-1.0); BUN/CREATININE RATIO 17; CALCIUM 9.8 MG/DL (8.5-10.1); CARBON DIOXIDE 12 MMOL/L (21-32); CHLORIDE 101 MMOL/L (98-107); CREATININE SERUM 1.81 MG/DL (0.60-1.30); GFR ESTIMATED 28; GLUCOSE 102 MG/DL (70-105); POTASSIUM 5.2 MMOL/L (3.6-5.0); SODIUM 134 MMOL/L (135-145); TOTAL PROTEIN 7.6 GM/DL (6.4-8.2)
[2022-04-16 13:05] LABS: CLARITY,URINE CLEAR; COLOR,URINE YELLOW; GLUCOSE, URINE (UA) NEGATIVE (NEGATIVE); KETONES,URINE 1+ (NEGATIVE); LEUKOCYTE ESTERASE ,URINE NEGATIVE (NEGATIVE); NITRITE,URINE NEGATIVE (NEGATIVE); PROTEIN,URINE 2+ (NEGATIVE)
[2022-04-16 13:10] LABS: BACTERIA,URINE TRACE /HPF; BILIRUBIN,URINE 2+ (NEGATIVE); HYALINE CASTS, URINE 0-2 /LPF; WBC,URINE 25-50 /HPF
--- NOTE | 2022-04-16 13:21 | Diagnostic Imaging Report ---
Indication: Cerebrovascular accidents COMPARISON: 03/28/2022 Scattered multifocal reticular nodular pulmonary parenchymal opacities similar to the prior may be slightly improved. No adverse development in the lungs. No failure, effusion or pneumothorax. Pacemaker device stable. IMPRESSION: Reticular nodular pulmonary opacities similar and likely at least slightly decreased from prior with no adverse development or failure pattern. Dictated by: Dictated on workstation # [id number]
[2022-04-16 13:38] LABS: LYMPHOCYTES % (MANUAL) 7 %; MONOCYTES % (MANUAL) 4 %; NEUTROPHILS % (MANUAL) 89 %
[2022-04-16 14:12] VITALS: BP 133/74
[2022-04-16 14:16] LABS: FIBRIN DEGRADATION PRODUCTS 11.26 UG/ML (0.00-0.49)
== END 2022-04-16 14:12 | disposition short-term general hospital (02) ==
LOC: EDUNIT# 12:32 → ER FS 12:35
DX: I63.511 Cerebral infarction due to unspecified occlusion or stenosis of right middle cerebral artery (principal); R29.713 NIHSS score 13
CPT/HCPCS: 36415; 51702; 70450; 71045; 80053; 81000; 84484; 85007; 85027; 85379; 85610; 85730; 87088; 93005; 93041

== ENCOUNTER 2022-06-13 18:02 | Observation (INO) | payer MEDICARE, MEDICAID ==
[~2022-06-13] VITALS: Ht 160 cm; Wt 48.2 kg
[~2022-06-13 18:02] MED LIST changes: +APIX2.5T PEG; -APIX2.5T PO; +ASPI-1238 PEG; -ASPI-1238 PO
--- NOTE | 2022-06-13 18:06 | ED General ---
General Stated Complaint: HEADACHE,R SIDE NECK PAIN History of Present Illness Date Seen by Provider: Jun 13, 2022 Time Seen by Provider: 18:05 Initial Comments 81-year-old female with PMH of CVA/A. fib/iron deficiency anemia/osteoporosis/CAD CKD/HTN/PEG tube, is sent here from the [place] [facility] with complaints of right sided upper neck and TMJ swelling and pain. Patient states that she had a central line removed approximately a month ago, and she also noticed a click in her right jaw when she yawned about 1 week ago. Patient is unsure what is causing her pain and swelling in that area. Denies fever, headache, dizziness, chest pain, SOB. Allergies and Home Medications Allergies Coded Allergies: sulfamethoxazole (Verified Allergy, Unknown, 11/15/18) caused renal failure last time taken. trimethoprim (Verified Allergy, Unknown, 11/15/18) caused renal failure last time taken. Patient Home Medication List Home Medication List Reviewed: Yes Alprazolam (Alprazolam) 0.5 Mg Tablet, 0.5 MG PO TID PRN for ANXIETY, (Reported) Entered as Reported by: JULIA DELAROSA on 03/28/222216 Apixaban (Eliquis) 2.5 Mg Tablet, 2.5 MG PO BID, (Reported) Entered as Reported by: WALLY WARNER on 01/18/21 104 Aspirin (Aspirin EC) 81 Mg Tablet.dr, 81 MG PO DAILY, (Reported) Entered as Reported by: JULIA DELAROSA on 03/28/222216 Diltiazem HCl (Dilt-Xr) 180 Mg Cap.er.deg, 180 MG PO DAILY, (Reported) Entered as Reported by: JULIA DELAROSA on 03/28/222216 Review of Systems Review of Systems Constitutional: no symptoms reported EENTM: other (right neck pain and swelling) Respiratory: no symptoms reported Cardiovascular: no symptoms reported Gastrointestinal: no symptoms reported Musculoskeletal: no symptoms reported Skin: no symptoms reported Psychiatric/Neurological: No Symptoms Reported Hematologic/Lymphatic: No Symptoms Reported Immunological/Allergic: no symptoms reported Past Czocbfs-Mbckcj-Lxkoao Hx Seasonal Allergies Seasonal Allergies: No Past Medical History Surgery/Hospitalization HX: Paroxysmal Atrial Fibrillation, Pacemaker March 10, 2022, Hx pericardial effusion, Cardiac Stent x 1 in 2019, Interstitual Pulmonary Dz, Anxiety, HTN, CKD, Hyperlipidemia, UTI's Surgeries: Yes (LEFT HIP FX, CATARACTS) Coronary Stent, Eye Surgery, Orthopedic, Pacemaker Respiratory: Yes (COPD, BRONCHITIS, BRONCHIECTASIS) COPD Currently Using CPAP: No Currently Using BIPAP: No Cardiac: Yes Atrial Fibrillation Neurological: No Genitourinary: Yes Bladder Infection, UTI-Chronic Gastrointestinal: No Musculoskeletal: No Arthritis Endocrine: No HEENT: Yes (CATARACT SURGERY) Cataract Cancer: No Psychosocial: No Integumentary: No Blood Disorders: No Adverse Reaction/Blood Tranf: No Physical Exam Vital Signs Vital Signs - First Documented 06/13/22 18:13 Temp 36.5 Pulse 76 Resp 22 B/P (MAP) 111/53 (72) Pulse Ox 97 Capillary Refill : Height, Weight, BMI Height: 5'3.00" Weight: 130lbs. 0oz. [id number]; BMI Method:Stated General Appearance: No Apparent Distress, WD/WN HEENT: PERRL/EOMI, TMs Normal, Pharynx Normal, Other (Right TMJ and upper neck swelling whichis tender to touch. Pt is able to open her mouth but has pain. ) Neck: Full Range of Motion, Supple, Other (swelling on upper part of right neck near the TMJ) Respiratory: Chest Non Tender, Lungs Clear, Normal Breath Sounds Cardiovascular: Regular Rate, Rhythm Gastrointestinal: Normal Bowel Sounds, Non Tender, Soft Back: No CVA Tenderness Extremity: Normal Range of Motion Neurologic/Psychiatric: Alert, Oriented x3 Focused Exam Lactate Level 06/13/22 18:23: Lactic Acid Level 1.20 Lactic Acid Level Laboratory Tests Test 06/13/22 18:23 Lactic Acid Level 1.20 MMOL/L (0.50-2.00) Progress/Results/Core Measures Suspected Sepsis SIRS Temperature: Pulse: Respiratory Rate: Laboratory Tests 06/13/22 18:23: White Blood Count 16.9H Blood Pressure / Mean: 06/13/22 18:23: Lactic Acid Level 1.20 Laboratory Tests 06/13/22 18:23: Creatinine 1.41H, INR Comment 1.1, Platelet Count 406H, Total Bilirubin 0.3 Results/Orders Lab Results Laboratory Tests Test 06/13/22 18:23 06/13/22 20:30 Range/Units White Blood Count 16.9 H 4.3-11.0 10^3/uL Red Blood Count 4.19 3.80-5.11 10^6/uL Hemoglobin 12.9 11.5-16.0 g/dL Hematocrit 39 35-52 % Mean Corpuscular Volume 93 80-99 fL Mean Corpuscular Hemoglobin 31 25-34 pg Mean Corpuscular Hemoglobin Concent 33 32-36 g/dL Red Cell Distribution Width 16.5 H 10.0-14.5 % Platelet Count 406 H 130-400 10^3/uL Mean Platelet Volume 9.3 9.0-12.2 fL Immature Granulocyte % (Auto) 1 % Neutrophils (%) (Auto) 68 42-75 % Lymphocytes (%) (Auto) 19 12-44 % Monocytes (%) (Auto) 10 0-12 % Eosinophils (%) (Auto) 3 0-10 % Basophils (%) (Auto) 1 0-10 % Neutrophils # (Auto) 11.4 H 1.8-7.8 10^3/uL Lymphocytes # (Auto) 3.1 1.0-4.0 10^3/uL Monocytes # (Auto) 1.7 H 0.0-1.0 10^3/uL Eosinophils # (Auto) 0.4 H 0.0-0.3 10^3/uL Basophils # (Auto) 0.1 0.0-0.1 10^3/uL Immature Granulocyte # (Auto) 0.2 H 0.0-0.1 10^3/uL Neutrophils % (Manual) 62 % Lymphocytes % (Manual) 19 % Monocytes % (Manual) 7 % Eosinophils % (Manual) 3 % Metamyelocytes % 1 % Band Neutrophils 4 % Atypical Lymphocytes 1 % Reactive Lymphocytes 3 % Platelet Estimate INCREASED Blood Morphology Comment NORMAL Erythrocyte Sedimentation Rate 77 H 0-30 MM/HR Prothrombin Time 14.6 12.2-14.7 SEC INR Comment 1.1 0.8-1.4 Activated Partial Thromboplast Time 38 H 24-35 SEC D-Dimer 1.17 H 0.00-0.49 UG/ML Sodium Level 135 135-145 MMOL/L Potassium Level 4.9 3.6-5.0 MMOL/L Chloride Level 99 98-107 MMOL/L Carbon Dioxide Level 20 L 21-32 MMOL/L Anion Gap 16 H 5-14 MMOL/L Blood Urea Nitrogen 49 H 7-18 MG/DL Creatinine 1.41 H 0.60-1.30 MG/DL Estimat Glomerular Filtration Rate 37 BUN/Creatinine Ratio 35 Glucose Level 109 H 70-105 MG/DL Lactic Acid Level 1.20 0.50-2.00 MMOL/L Calcium Level 10.1 8.5-10.1 MG/DL Corrected Calcium 10.7 H 8.5-10.1 MG/DL Magnesium Level 2.3 1.6-2.4 MG/DL Total Bilirubin 0.3 0.1-1.0 MG/DL Aspartate Amino Transf (AST/SGOT) 30 5-34 U/L Alanine Aminotransferase (ALT/SGPT) 45 0-55 U/L Alkaline Phosphatase 143 H 40-136 U/L Total Protein 8.4 H 6.4-8.2 GM/DL Albumin 3.3 3.2-4.5 GM/DL Urine Color YELLOW Urine Clarity CLOUDY Urine pH 7.0 5-9 Urine Specific [place] 1.010 L 1.016-1.022 Urine Protein NEGATIVE NEGATIVE Urine Glucose (UA) NEGATIVE NEGATIVE Urine Ketones NEGATIVE NEGATIVE Urine Nitrite NEGATIVE NEGATIVE Urine Bilirubin NEGATIVE NEGATIVE Urine Urobilinogen 0.2 < = 1.0 MG/DL Urine Leukocyte Esterase 3+ H NEGATIVE Urine RBC (Auto) 2+ H NEGATIVE Urine RBC 2-5 H /HPF Urine WBC 10-25 H /HPF Urine Squamous Epithelial Cells 2-5 /HPF Urine Crystals NONE /LPF Urine Bacteria NEGATIVE /HPF Urine Casts PRESENT /LPF Urine Hyaline Casts 0-2 H /LPF Urine Mucus LARGE H /LPF Urine Yeast LARGE H /HPF Urine Culture Indicated YES My Orders Orders - JONH SANTILLAN MD Ct Neck (Soft Tissue) W (06/13/22 18:16) Cbc With Automated Diff (06/13/22 18:20) Comprehensive Metabolic Panel (06/13/22 18:20) Fibrin Degradation Products (06/13/22 18:20) Lactic Acid Analyzer (06/13/22 18:20) Magnesium (06/13/22 18:20) Protime With Inr (06/13/22 18:20) Partial Thromboplastin Time (06/13/22 18:20) Erythrocyte Sedimentation Rate (06/13/22 18:46) Manual Differential (06/13/22 18:23) Iohexol Injection (Omnipaque 350 Mg/Ml 1 (06/13/22 19:45) Received Contrast (Hold Metformin- Contr (06/13/22 19:45) Ns (Ivpb) (Sodium Chloride 0.9% Ivpb Bag (06/13/22 19:45) Ua Culture If Indicated (06/13/22 19:53) Ed Admission (Communication) (06/13/22 20:42) Urine Culture (06/13/22 20:30) Medications Given in ED Current Medications Medications Dose Ordered Sig/Celina Route Start Time Stop Time Status Last Admin Dose Admin Iohexol 75 ml ONCE ONCE IV 06/13/22 19:45 06/13/22 19:46 DC 06/13/22 19:53 75 ML Sodium Chloride 100 ml ONCE ONCE IV 06/13/22 19:45 06/13/22 19:46 DC 06/13/22 19:53 100 ML Vital Signs/I&O 06/13/22 18:13 Temp 36.5 Pulse 76 Resp 22 B/P (MAP) 111/53 (72) Pulse Ox 97 Capillary Refill : Progress Note : Progress Note 1. RIGHT ACUTE PAROTITIS - CT NECK WITH CONTRAST: Inflamed parotid gland with posssibility of tumor - CBC/ CMP: WBC is elevated to 16.9 with a left shift - ESR: 77 and Alk Phosphatase is elevated at 143: possibility of tumor - Blood cultures sent - Zosyn iv STAT in ER/ NS IVF - Pain control Percocet prn pain - Discussed with hospitalist and will admit to Observation for antibiotics and pain control, and VQ scan 2. ELEVATED D-DIMER: - D-dimer/ Coag panel:D-dimer is elevated: 1.17 - Cannot give more contrast today to do CTA CHEST, since D-dimer result came after CT neck was done - Will need VQ scan to rule out PE today, or CTA chest can be done todomorrow - Lovenox 40 given in ER Diagnostic Imaging Diagonstic Imaging: CT Plain Films/CT/US/NM/MRI: other Comments [facility]. [place], [place] NAME: SUKH FROST Yasmine KERR REC#: [id number] PT STATUS: REG ER : 1940 PHYSICIAN: JONH SANTILLAN MD ADMIT DATE: 06/13/22/ER FS Draft Date of Exam:06/13/22 CT NECK (SOFT TISSUE) W PROCEDURE: CT neck soft tissue with contrast. TECHNIQUE: Multiple contiguous axial images were obtained through the neck after the administration of contrast. Auto Exposure Controls were utilized during the CT exam to meet ALARA standards for radiation dose reduction. INDICATION: Right temporomandibular region and neck pain. CT imaging of the neck reveals asymmetric enlargement of the right parotid gland with diffusely increased density which may be due to contrast enhancement. This is immediately adjacent to the right temporomandibular joint and extends caudally to the mandibular angle. There is no evidence of focal fluid collection. There is rather advanced degenerative change of the temporomandibular joints, greater on the left. There is also fluid present within right sphenoid sinus. Note is made of right internal carotid artery stent. Submandibular salivary glands and the thyroid gland are unremarkable with punctate calcification in the inferior pole of the right lobe of the thyroid gland. There is nonopacification of the right internal carotid artery throughout the neck with moderate atherosclerotic disease involving the left carotid bifurcation. No pathologically enlarged adenopathy is seen. IMPRESSION: There are advanced degenerative findings in the temporomandibular joints, greater on the left, however there is diffuse enlargement and increased density throughout the right parotid gland. This may represent enhancement on the basis of inflammation. The possibility of infiltrating tumor is not excluded. Clinical correlation is recommended. 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 Dictated on workstation # [id number] Dict: 06/13/222003 Trans: 06/13/222011 [facility] [id number] Interpreted by: COURT MALCOLM MD Electronically signed by: Departure Impression Primary Impression: Acute parotitis Additional Impression: Elevated d-dimer Disposition: 30 STILL A PATIENT Condition: Stable Admissions Decision to Admit Reason: Admit from ER (General) Decision to Admit/Date: Jun 13, 2022 Time/Decision to Admit Time: 20:30 Transfer Method of Transfer: EMS Departure-Patient Inst. Referrals: GIOVANNI CAMPBELL MD (PCP/Family) Primary Care Physician JONH SANTILLAN MD Jun 13, 2022 18:06
[2022-06-13 18:39] LABS: BASOPHILS # (AUTO) 0.1 10^3/uL (0.0-0.1); BASOPHILS % (AUTO) 1 % (0-10); EOSINOPHILS # (AUTO) 0.4 10^3/uL (0.0-0.3); EOSINOPHILS % (AUTO) 3 % (0-10); HEMATOCRIT 39 % (35-52); HEMOGLOBIN 12.9 g/dL (11.5-16.0); LYMPHOCYTES # (AUTO) 3.1 10^3/uL (1.0-4.0); LYMPHOCYTES % (AUTO) 19 % (12-44); MEAN CORPUSCULAR HEMOGLOBIN 31 pg (25-34); MEAN CORPUSCULAR HGB CONC 33 g/dL (32-36); MEAN CORPUSCULAR VOLUME 93 fL (80-99); MEAN PLATELET VOLUME 9.3 fL (9.0-12.2); MONOCYTES # (AUTO) 1.7 10^3/uL (0.0-1.0); MONOCYTES % (AUTO) 10 % (0-12); NEUTROPHILS # (AUTO) 11.4 10^3/uL (1.8-7.8); NEUTROPHILS % (AUTO) 68 % (42-75); PLATELET COUNT 406 10^3/uL (130-400); WHITE BLOOD COUNT 16.9 10^3/uL (4.3-11.0)
[2022-06-13 19:22] LABS: BILIRUBIN,TOTAL 0.3 MG/DL (0.1-1.0); CALCIUM 10.1 MG/DL (8.5-10.1); CREATININE SERUM 1.41 MG/DL (0.60-1.30); MAGNESIUM 2.3 MG/DL (1.6-2.4); POTASSIUM 4.9 MMOL/L (3.6-5.0)
[2022-06-13 19:23] LABS: ALBUMIN 3.3 GM/DL (3.2-4.5); TOTAL PROTEIN 8.4 GM/DL (6.4-8.2)
[2022-06-13 19:27] LABS: FIBRIN DEGRADATION PRODUCTS 1.17 UG/ML (0.00-0.49); INR 1.1 (0.8-1.4); PROTHROMBIN TIME PATIENT 14.6 SEC (12.2-14.7)
[2022-06-13 19:28] LABS: ATYPICAL LYMPHOCYTES 1 %; BAND NEUTROPHILS 4 %; EOSINOPHILS % (MANUAL) 3 %; LYMPHOCYTES % (MANUAL) 19 %; METAMYELOCYTES % 1 %; MONOCYTES % (MANUAL) 7 %; NEUTROPHILS % (MANUAL) 62 %
[2022-06-13 19:29] LABS: PLATELET ESTIMATE INCREASED; RBC MORPH NORMAL; REACTIVE LYMPHOCYTES 3 %
[2022-06-13] MEDS ORDERED: IOHEXOL 350 MG/ML 100 ML (OMNIPAQUE 350) VIAL IV ONE (19:45)
[2022-06-13] MEDS ORDERED: HOLD METFORMIN - RECEIVED CONTRAST 20 ML VIAL IV SCH (19:45)
[2022-06-13] MEDS ORDERED: NS 100 ML (IVPB) BAG IV ONE (19:45)
--- NOTE | 2022-06-13 20:13 | Diagnostic Imaging Report ---
PROCEDURE: CT neck soft tissue with contrast. TECHNIQUE: Multiple contiguous axial images were obtained through the neck after the administration of contrast. Auto Exposure Controls were utilized during the CT exam to meet ALARA standards for radiation dose reduction. INDICATION: Right temporomandibular region and neck pain. CT imaging of the neck reveals asymmetric enlargement of the right parotid gland with diffusely increased density which may be due to contrast enhancement. This is immediately adjacent to the right temporomandibular joint and extends caudally to the mandibular angle. There is no evidence of focal fluid collection. There is rather advanced degenerative change of the temporomandibular joints, greater on the left. There is also fluid present within right sphenoid sinus. Note is made of right internal carotid artery stent. Submandibular salivary glands and the thyroid gland are unremarkable with punctate calcification in the inferior pole of the right lobe of the thyroid gland. There is nonopacification of the right internal carotid artery throughout the neck with moderate atherosclerotic disease involving the left carotid bifurcation. No pathologically enlarged adenopathy is seen. IMPRESSION: There are advanced degenerative findings in the temporomandibular joints, greater on the left, however there is diffuse enlargement and increased density throughout the right parotid gland. This may represent enhancement on the basis of inflammation. The possibility of infiltrating tumor is not excluded. Clinical correlation is recommended. 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 Dictated by: Dictated on workstation # [id number]
[2022-06-13 20:37] LABS: BILIRUBIN,URINE NEGATIVE (NEGATIVE); CLARITY,URINE CLOUDY; COLOR,URINE YELLOW; GLUCOSE, URINE (UA) NEGATIVE (NEGATIVE); KETONES,URINE NEGATIVE (NEGATIVE); LEUKOCYTE ESTERASE ,URINE 3+ (NEGATIVE); NITRITE,URINE NEGATIVE (NEGATIVE); PROTEIN,URINE NEGATIVE (NEGATIVE)
[2022-06-13 20:53] LABS: BACTERIA,URINE NEGATIVE /HPF
[2022-06-13 20:54] LABS: HYALINE CASTS, URINE 0-2 /LPF; YEAST,URINE LARGE /HPF
[2022-06-13] MEDS ORDERED: PIPERACILLIN/TAZO 4.5 GM VIAL (ZOSYN) IV ONE (22:38)
[2022-06-13] MEDS ORDERED: NS (IVPB) 100 ML ONE (22:38)
[2022-06-13] MEDS ORDERED: ENOXAPARIN 40 MG/0.4 ML (LOVENOX) SYR SC ONE (22:45)
[2022-06-13] MEDS ORDERED: PIPERACILLIN SODIUM/TAZOBACTAM 4.5 GM in NS (IVPB) 100 ML IV ONE (22:45)
[2022-06-13] MEDS ORDERED: ENOXAPARIN 40 MG/0.4 ML (LOVENOX) SYR ONE (22:48)
[2022-06-13 23:47] VITALS: BP 107/59
[2022-06-14] MEDS ORDERED: MELATONIN 3 MG TABLET PO PRN (01:15)
[2022-06-14 01:28] VITALS: BP 111/53
[2022-06-14] MEDS: NS IV 1000 ML 1,000 ML IV SCH ×3 (01:29→14:58)
[2022-06-14] MEDS: oxyCODONE/APAP 5/325MG (PERCOCET 5) TABLET PO PRN ×4 (01:34→16:28)
[2022-06-14] MEDS ORDERED: RT-ALBUTEROL SULF 2.5 MG/3 ML PRE-MIX VIAL INH PRN (01:45)
[2022-06-14 03:13] VITALS: BP 128/58
[2022-06-14] MEDS: PIPERACILLIN SODIUM/TAZOBACTAM 4.5 GM in NS (IVPB) 100 ML IV SCH ×3 (05:47→20:47)
[2022-06-14 08:03] VITALS: BP 122/75
[2022-06-14 10:12] LABS: BASOPHILS # (AUTO) 0.1 10^3/uL (0.0-0.1); BASOPHILS % (AUTO) 1 % (0-10); EOSINOPHILS # (AUTO) 0.4 10^3/uL (0.0-0.3); EOSINOPHILS % (AUTO) 3 % (0-10); HEMATOCRIT 40 % (35-52); HEMOGLOBIN 12.8 g/dL (11.5-16.0); LYMPHOCYTES # (AUTO) 2.5 10^3/uL (1.0-4.0); LYMPHOCYTES % (AUTO) 19 % (12-44); MEAN CORPUSCULAR HEMOGLOBIN 31 pg (25-34); MEAN CORPUSCULAR HGB CONC 32 g/dL (32-36); MEAN CORPUSCULAR VOLUME 95 fL (80-99); MEAN PLATELET VOLUME 9.2 fL (9.0-12.2); MONOCYTES # (AUTO) 1.2 10^3/uL (0.0-1.0); MONOCYTES % (AUTO) 9 % (0-12); NEUTROPHILS # (AUTO) 9.2 10^3/uL (1.8-7.8); NEUTROPHILS % (AUTO) 68 % (42-75); PLATELET COUNT 349 10^3/uL (130-400); WHITE BLOOD COUNT 13.4 10^3/uL (4.3-11.0)
[2022-06-14 10:27] LABS: CALCIUM 9.8 MG/DL (8.5-10.1); CREATININE SERUM 1.41 MG/DL (0.60-1.30); POTASSIUM 4.5 MMOL/L (3.6-5.0)
[2022-06-14 10:32] LABS: BILIRUBIN,DIRECT 0.3 MG/DL (0.0-0.3); BILIRUBIN,INDIRECT 0.3 MG/DL; BILIRUBIN,TOTAL 0.6 MG/DL (0.1-1.0)
[2022-06-14 10:33] LABS: ALBUMIN 2.9 GM/DL (3.2-4.5); TOTAL PROTEIN 7.6 GM/DL (6.4-8.2)
[2022-06-14] MEDS ORDERED: CATHETER FLUSH 10 ML SYR IVP PRN (11:00)
[2022-06-14 11:24] VITALS: BP 117/68
[2022-06-14] MEDS ORDERED: morphine INJ 4 MG/ML 1 ML (VIAL/SYRINGE) IVP PRN (11:30)
[2022-06-14] MEDS ORDERED: DILT90TA PEG (13:44)
[2022-06-14] MEDS ORDERED: CLOP75TA28 PEG (13:44)
[2022-06-14] MEDS ORDERED: OXYB10TA29 PO (13:44)
[2022-06-14] MEDS ORDERED: TRAM50TA3 PO (13:44)
[2022-06-14] MEDS ORDERED: MTP25TSR PEG (13:44)
[2022-06-14] MEDS ORDERED: ACET160O28 PEG (13:44)
[2022-06-14] MEDS ORDERED: GUAI600T43 PEG (13:44)
--- NOTE | 2022-06-14 13:47 | History & Physical ---
HPI History of Present Illness: History provided by daughter: 81 yo female brought to ER due to swelling and pain in right neck. She also complained of headache in the back of her head on the right. She had a carotid artery stent when she had a stroke, she had a thrombectomy and carotid artery stenting after stroke in March of this year. She was life flighted to at that time, and she went to [facility] in [place] after discharge from . After the stroke, she has no movement of her left arm, initially had no left leg movement, but she is able to move it now, although not to bear weight that her daughter is aware of. She has a PEG tube, but daughter reports that about 3 weeks ago she had repeat swallow testing and was cleared for pureed foods which she has been receiving at the [place], but daughter states she doesn't like the pureed food so she doesn't eat a lot. She is receiving tube feedings. Reportedly she had COVID in the nursing facility 10 days ago. Testing negative here. She also has a history of pacemaker, which was placed around February of this year in [place]. After pacemaker placement, a lead was out of place and then she had what sounds like catheterization to fix that and then drainage of fluid around her heart per her daughter. Source: family Date seen by provider: Jun 14, 2022 Time Seen by Provider: 13:47 Attending Physician Joseph Mcgregor MD PCP Admitting Physician: Jennie Campo MD Attending Physician: Jennie Campo MD Consult Date of Admission Jun 13, 2022 at 23:46 Home Medications Home Medications Reviewed patient Home Medication Reconciliation performed by pharmacy medication reconciliations boiler service technician and/or nursing. Patients Allergies have been reviewed. Allergies Coded Allergies: sulfamethoxazole (Verified Allergy, Unknown, 11/15/18) caused renal failure last time taken. trimethoprim (Verified Allergy, Unknown, 11/15/18) caused renal failure last time taken. NSQ-Radvmj-Kchwzk Hx Patient Social History Smoking Status: Former Smoker 2nd Hand Smoke Exposure: No Recent Hopitalizations: No Alcohol Use?: No Have you traveled recently?: No Immunizations Up To Date Influenza Vaccine Up-to-Date: Yes; Up-to-Date Past Medical History PMHx: HTN Atrial fibrillation Bronchiectasis CVA CKD SurgHx: PEG placement Cholecystectomy Carotid artery stenting Tubal ligation Pacemaker placement Review of Systems ([facility]) Constitutional: No fever EENTM: throat pain Respiratory: No cough Cardiovascular: No chest pain Musculoskeletal: other (left shoulder pain) Reviewed Test Results Reviewed Test Results Lab Laboratory Tests Test 06/13/22 18:23 06/13/22 20:30 06/14/22 09:46 Range/Units White Blood Count 16.9 H 13.4 H 4.3-11.0 10^3/uL Red Blood Count 4.19 4.17 3.80-5.11 10^6/uL Hemoglobin 12.9 12.8 11.5-16.0 g/dL Hematocrit 39 40 35-52 % Mean Corpuscular Volume 93 95 80-99 fL Mean Corpuscular Hemoglobin 31 31 25-34 pg Mean Corpuscular Hemoglobin Concent 33 32 32-36 g/dL Red Cell Distribution Width 16.5 H 16.5 H 10.0-14.5 % Platelet Count 406 H 349 130-400 10^3/uL Mean Platelet Volume 9.3 9.2 9.0-12.2 fL Immature Granulocyte % (Auto) 1 1 % Neutrophils (%) (Auto) 68 68 42-75 % Lymphocytes (%) (Auto) 19 19 12-44 % Monocytes (%) (Auto) 10 9 0-12 % Eosinophils (%) (Auto) 3 3 0-10 % Basophils (%) (Auto) 1 1 0-10 % Neutrophils # (Auto) 11.4 H 9.2 H 1.8-7.8 10^3/uL Lymphocytes # (Auto) 3.1 2.5 1.0-4.0 10^3/uL Monocytes # (Auto) 1.7 H 1.2 H 0.0-1.0 10^3/uL Eosinophils # (Auto) 0.4 H 0.4 H 0.0-0.3 10^3/uL Basophils # (Auto) 0.1 0.1 0.0-0.1 10^3/uL Immature Granulocyte # (Auto) 0.2 H 0.1 0.0-0.1 10^3/uL Neutrophils % (Manual) 62 % Lymphocytes % (Manual) 19 % Monocytes % (Manual) 7 % Eosinophils % (Manual) 3 % Metamyelocytes % 1 % Band Neutrophils 4 % Atypical Lymphocytes 1 % Reactive Lymphocytes 3 % Platelet Estimate INCREASED Blood Morphology Comment NORMAL Erythrocyte Sedimentation Rate 77 H 0-30 MM/HR Prothrombin Time 14.6 12.2-14.7 SEC INR Comment 1.1 0.8-1.4 Activated Partial Thromboplast Time 38 H 24-35 SEC D-Dimer 1.17 H 0.00-0.49 UG/ML Sodium Level 135 135 135-145 MMOL/L Potassium Level 4.9 4.5 3.6-5.0 MMOL/L Chloride Level 99 107 98-107 MMOL/L Carbon Dioxide Level 20 L 11 L 21-32 MMOL/L Anion Gap 16 H 17 H 5-14 MMOL/L Blood Urea Nitrogen 49 H 37 H 7-18 MG/DL Creatinine 1.41 H 1.41 H 0.60-1.30 MG/DL Estimat Glomerular Filtration Rate 37 37 BUN/Creatinine Ratio 35 26 Glucose Level 109 H 83 70-105 MG/DL Lactic Acid Level 1.20 0.50-2.00 MMOL/L Calcium Level 10.1 9.8 8.5-10.1 MG/DL Corrected Calcium 10.7 H 8.5-10.1 MG/DL Magnesium Level 2.3 1.6-2.4 MG/DL Total Bilirubin 0.3 0.6 0.1-1.0 MG/DL Aspartate Amino Transf (AST/SGOT) 30 29 5-34 U/L Alanine Aminotransferase (ALT/SGPT) 45 45 0-55 U/L Alkaline Phosphatase 143 H 122 40-136 U/L Total Protein 8.4 H 7.6 6.4-8.2 GM/DL Albumin 3.3 2.9 L 3.2-4.5 GM/DL Urine Color YELLOW Urine Clarity CLOUDY Urine pH 7.0 5-9 Urine Specific [place] 1.010 L 1.016-1.022 Urine Protein NEGATIVE NEGATIVE Urine Glucose (UA) NEGATIVE NEGATIVE Urine Ketones NEGATIVE NEGATIVE Urine Nitrite NEGATIVE NEGATIVE Urine Bilirubin NEGATIVE NEGATIVE Urine Urobilinogen 0.2 < = 1.0 MG/DL Urine Leukocyte Esterase 3+ H NEGATIVE Urine RBC (Auto) 2+ H NEGATIVE Urine RBC 2-5 H /HPF Urine WBC 10-25 H /HPF Urine Squamous Epithelial Cells 2-5 /HPF Urine Crystals NONE /LPF Urine Bacteria NEGATIVE /HPF Urine Casts PRESENT /LPF Urine Hyaline Casts 0-2 H /LPF Urine Mucus LARGE H /LPF Urine Yeast LARGE H /HPF Urine Culture Indicated YES Direct Bilirubin 0.3 0.0-0.3 MG/DL Indirect Bilirubin 0.3 MG/DL Radiology CT neck: IMPRESSION: There are advanced degenerative findings in the temporomandibular joints, greater on the left, however there is diffuse enlargement and increased density throughout the right parotid gland. This may represent enhancement on the basis of inflammation. The possibility of infiltrating tumor is not excluded. Clinical correlation is recommended. 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 Physical Exam-([facility]) Physical Exam Vital Signs VS - Last 72 Hours, by Label 06/13/22 06/13/22 06/13/22 06/14/22 18:13 22:52 23:47 00:39 Temp 36.5 36.1 Pulse 76 72 71 74 Resp 22 16 18 B/P (MAP) 111/53 (72) 121/60 107/59 (75) Pulse Ox 97 100 98 O2 Delivery Room Air 06/14/22 06/14/22 06/14/22 06/14/22 01:28 03:13 07:25 08:00 Temp 36.5 35.9 Pulse 76 70 70 Resp 18 B/P (MAP) 128/58 (81) Pulse Ox 97 97 95 O2 Delivery Room Air Room Air FiO2 21 06/14/22 06/14/22 06/14/22 06/14/22 08:03 10:38 11:24 12:14 Temp 36.0 36.1 Pulse 68 69 70 Resp 18 18 B/P (MAP) 122/75 (91) 117/68 (84) Pulse Ox 95 94 94 O2 Delivery Room Air Room Air Room Air 06/14/22 06/14/22 06/14/22 15:24 19:00 19:12 Temp 36.2 35.6 Pulse 71 70 75 Resp 20 16 B/P (MAP) 108/61 (77) 90/55 (67) Pulse Ox 100 98 O2 Delivery Room Air Room Air Capillary Refill : General Appearance: no apparent distress, other (Drowsy but arousable) HEENT: PERRL/EOMI, other (swelling to right neck/jawline) Respiratory: lungs clear, normal breath sounds Cardiovascular: regular rate, rhythm Gastrointestinal: normal bowel sounds, non tender, soft, other (PEG tube in place with no surrounding erythema or drainage) Neurologic/Psychiatric: other (Drowsy but arousable) Skin: warm/dry Assessment/Plan Assessment/Plan Admission Status: Observation (1) Acute parotitis Status: Acute Assessment & Plan: Started on Zosyn, leukocytosis noted, but unclear if may be tumor infiltrating, will monitor symptoms with treatment and continue to adjust as course dictates. (2) Elevated d-dimer Status: Acute Assessment & Plan: V/Q scan pending (3) History of stroke Status: Chronic Assessment & Plan: With residual weakness of left leg and paralysis of left arm, recently advanced swallowing to pureed, still using PEG for supplemental nutrition. (4) CKD (chronic kidney disease) Status: Chronic (5) Hypertension Status: Chronic (6) Atrial fibrillation Status: Chronic Assessment & Plan: Continue metoprolol and cardizem (7) DVT prophylaxis Status: Acute Assessment & Plan: Resume home apixaban JENNIE CAMPO MD Jun 14, 2022 13:47
--- NOTE | 2022-06-14 14:25 | Diagnostic Imaging Report ---
INDICATION: Elevated D-dimer. TECHNIQUE: Patient was given 5.4 mCi technetium 99m MAA intravenously and an anterior projection image over the chest was performed. Overall study is limited due to patient being bedridden. FINDINGS: There appears to be fairly homogeneous perfusion of both lungs. No ibdfjkty-mz-ftgfg-sized perfusion defects are seen. IMPRESSION: Unremarkable limited lung perfusion study. Dictated by: Dictated on workstation # [id number]
[2022-06-14 15:24] VITALS: BP 108/61
[2022-06-14 19:12] VITALS: BP 90/55
[2022-06-14] MEDS ORDERED: APAP 325 MG/10.15 ML LIQ (TYLENOL) UDC PEG PRN (23:15)
[2022-06-15] VITALS (7 sets, daily range): BP systolic 103–125; BP diastolic 55–78
[2022-06-15] MEDS: NS IV 1000 ML 1,000 ML IV SCH ×5 (00:32→21:06)
[2022-06-15] MEDS: PIPERACILLIN SODIUM/TAZOBACTAM 4.5 GM in NS (IVPB) 100 ML IV SCH ×3 (05:08→20:59)
[2022-06-15] MEDS: oxyCODONE/APAP 5/325MG (PERCOCET 5) TABLET PO PRN ×2 (09:11→18:41)
[2022-06-15] MEDS: CLOPIDOGREL 75 MG (PLAVIX) TABLET PEG SCH (09:11)
[2022-06-15] MEDS: ASPIRIN 81 MG CHEW (CHILDREN'S ASA) PEG SCH (09:11)
[2022-06-15] MEDS: APIXABAN 2.5 MG (ELIQUIS) TABLET PEG SCH ×2 (09:11→21:01)
[2022-06-15 09:17] LABS: HEMATOCRIT 34 % (35-52); HEMOGLOBIN 10.9 g/dL (11.5-16.0); MEAN CORPUSCULAR HEMOGLOBIN 31 pg (25-34); MEAN CORPUSCULAR HGB CONC 32 g/dL (32-36); MEAN CORPUSCULAR VOLUME 94 fL (80-99); MEAN PLATELET VOLUME 9.1 fL (9.0-12.2); PLATELET COUNT 314 10^3/uL (130-400); WHITE BLOOD COUNT 14.3 10^3/uL (4.3-11.0)
[2022-06-15 09:39] LABS: POTASSIUM 4.1 MMOL/L (3.6-5.0)
[2022-06-15 09:45] LABS: CREATININE SERUM 1.38 MG/DL (0.60-1.30)
[2022-06-15] MEDS ORDERED: ONDANSETRON 4 MG/2 ML (SDV) Z0FRAN IVP PRN (10:00)
--- NOTE | 2022-06-15 10:45 | Progress Note ---
Subjective Subjective/Events-last exam Pt states she is feeling okay, neck isn't hurting too much. Focused Exam Lactate Level 06/13/22 18:23: Lactic Acid Level 1.20 Objective Exam Last Set of Vital Signs Vital Signs Date Time Temp Pulse Resp B/P (MAP) Pulse Ox O2 Delivery O2 Flow Rate FiO2 06/15/22 10:26 93 Room Air 06/15/22 07:54 36.4 75 18 125/78 (94) 06/14/22 01:28 21 Capillary Refill : I&O Intake and Output 06/15/22 00:00 Intake Total 510 ml Output Total 4 ml Balance 506 ml Intake Oral 0 ml Tube Feeding 510 ml Output Urine Total 4 ml # Voids 1 # Bowel Movements 1 Daily Weight Change Yes, 2-13 lbs General: Alert, No Acute Distress HEENT: Other (right angle of jaw swelling/induration mildly tender, non- fluctuant, no erythema, no intraoral drainge) Lungs: Clear to Auscultation Heart: Regular Rate Abdomen: Normal Bowel Sounds, Soft Psych/Mental Status: Mood NL, Other (oriented to self and that she is in the hospital) Results/Procedures Lab Laboratory Tests 06/15/22 09:10: White Blood Count 14.3H, Red Blood Count 3.57L, Hemoglobin 10.9L, Hematocrit 34L , Mean Corpuscular Volume 94, Mean Corpuscular Hemoglobin 31, Mean Corpuscular Hemoglobin Concent 32, Red Cell Distribution Width 16.4H, Platelet Count 314, Mean Platelet Volume 9.1, Sodium Level 137, Potassium Level 4.1, Chloride Level 110H, Carbon Dioxide Level 16L, Anion Gap 11, Blood Urea Nitrogen 31H, Creatinine 1.38H, Estimat Glomerular Filtration Rate 38, BUN/Creatinine Ratio 22, Glucose Level 119H, Calcium Level 9.0 Microbiology 06/13/22 Blood Culture - Preliminary, Resulted Staph, 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 This may represent enhancement on the basis of inflammation. The possibility of in filtrating tumor is not excluded. Clinical correlation is recommended. 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 Assessment/Plan Assessment/Plan (1) Acute parotitis Status: Acute Assessment & Plan: Started on Zosyn, leukocytosis noted, but unclear if may be tumor infiltrating, will monitor symptoms with treatment and continue to adjust as course dictates. 06/15- leukocytosis unchanged, clinical findings not clearly consistent with infection, will check MRI (2) Elevated d-dimer Status: Acute Assessment & Plan: V/Q scan without evidence of PE (3) History of stroke Status: Chronic Assessment & Plan: With residual weakness of left leg and paralysis of left arm, recently advanced swallowing to pureed, still using PEG for supplemental nutrition. (4) CKD (chronic kidney disease) Status: Chronic (5) Hypertension Status: Chronic (6) Atrial fibrillation Status: Chronic Assessment & Plan: Continue metoprolol and cardizem (7) DVT prophylaxis Status: Acute Assessment & Plan: Resume home apixaban JENNIE DURNAT MD Jun 15, 2022 10:45
[2022-06-15] MEDS: OXYBUTYNIN (DITROPAN) 5 MG TAB PO SCH ×2 (11:29→21:01)
[2022-06-15] MEDS ORDERED: guaiFENesin (MUCINEX) 600 MG TAB PO SCH (21:00)
[2022-06-15] MEDS: SALINE NASAL SPRAY (OCEAN) 45 ML BTL SCH (21:01)
[2022-06-15] MEDS: guaiFENesin (MUCINEX) 600 MG TAB PO SCH (21:01)
[2022-06-16 03:33] VITALS: BP 107/73
[2022-06-16] MEDS: PIPERACILLIN SODIUM/TAZOBACTAM 4.5 GM in NS (IVPB) 100 ML IV SCH ×3 (05:59→20:05)
[2022-06-16] MEDS: NS IV 1000 ML 1,000 ML IV SCH ×3 (06:48→20:04)
[2022-06-16 07:37] VITALS: BP 124/61
[2022-06-16 09:04] LABS: HEMATOCRIT 33 % (35-52); HEMOGLOBIN 10.7 g/dL (11.5-16.0); MEAN CORPUSCULAR HEMOGLOBIN 31 pg (25-34); MEAN CORPUSCULAR HGB CONC 32 g/dL (32-36); MEAN CORPUSCULAR VOLUME 95 fL (80-99); MEAN PLATELET VOLUME 8.9 fL (9.0-12.2); PLATELET COUNT 324 10^3/uL (130-400); WHITE BLOOD COUNT 14.7 10^3/uL (4.3-11.0)
[2022-06-16 09:20] LABS: CALCIUM 9.3 MG/DL (8.5-10.1); CREATININE SERUM 1.36 MG/DL (0.60-1.30); POTASSIUM 4.1 MMOL/L (3.6-5.0)
[2022-06-16] MEDS: SALINE NASAL SPRAY (OCEAN) 45 ML BTL SCH ×2 (10:41→20:05)
[2022-06-16 11:45] VITALS: BP 129/74
[2022-06-16] MEDS: APIXABAN 2.5 MG (ELIQUIS) TABLET PEG SCH ×2 (13:32→20:05)
[2022-06-16] MEDS: OXYBUTYNIN (DITROPAN) 5 MG TAB PO SCH ×2 (13:32→20:04)
[2022-06-16] MEDS: CLOPIDOGREL 75 MG (PLAVIX) TABLET PEG SCH (13:32)
[2022-06-16] MEDS: ASPIRIN 81 MG CHEW (CHILDREN'S ASA) PEG SCH (13:32)
--- NOTE | 2022-06-16 16:25 | Progress Note ---
Subjective Subjective/Events-last exam Pt states she is hurting all over. When asked if she had neck pain, she said yes, but points to left neck musculature. Focused Exam Lactate Level 06/13/22 18:23: Lactic Acid Level 1.20 Objective Exam Last Set of Vital Signs Vital Signs Date Time Temp Pulse Resp B/P (MAP) Pulse Ox O2 Delivery O2 Flow Rate FiO2 06/16/22 12:55 70 06/16/22 11:45 36.2 18 129/74 (92) 99 Room Air 06/14/22 01:28 21 Capillary Refill : I&O Intake and Output 06/16/22 00:00 Intake Total 570 ml Output Total 2 ml Balance 568 ml Intake Oral 60 ml Tube Feeding 510 ml Output Urine Total 2 ml # Voids 6 # Bowel Movements 6 General: Alert, No Acute Distress Lungs: Clear to Auscultation Heart: Regular Rate Abdomen: Normal Bowel Sounds, Soft, Other (PEG tube in place with no surrounding erythema or drainage) Extremities: Other (left arm with elbow in flexion and forearm across abodmen) Neuro: Other (oriented to self and that she is in the hospital but thought it was in [place], does not know the date) Psych/Mental Status: Mood NL Results/Procedures Lab Laboratory Tests 06/16/22 08:50: White Blood Count 14.7H, Red Blood Count 3.49L, Hemoglobin 10.7L, Hematocrit 33L , Mean Corpuscular Volume 95, Mean Corpuscular Hemoglobin 31, Mean Corpuscular Hemoglobin Concent 32, Red Cell Distribution Width 16.3H, Platelet Count 324, Mean Platelet Volume 8.9L, Sodium Level 142, Potassium Level 4.1, Chloride Level 113H, Carbon Dioxide Level 16L, Anion Gap 13, Blood Urea Nitrogen 23H, Creatinine 1.36H, Estimat Glomerular Filtration Rate 39, BUN/Creatinine Ratio 17, Glucose Level 81, Calcium Level 9.3 Microbiology 06/13/22 Blood Culture - Final, Complete Staph, 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 This may represent enhancement on the basis of inflammation. The possibility of infiltrating tumor is not excluded. Clinical correlation is recommended. 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 Assessment/Plan Assessment/Plan (1) Acute parotitis Status: Acute Assessment & Plan: Started on Zosyn, leukocytosis noted, but unclear if may be tumor infiltrating, will monitor symptoms with treatment and continue to adjust as course dictates. 06/15- leukocytosis unchanged, clinical findings not clearly consistent with infection, will check MRI 06/16 MRI pending, trying to determine if can be done with her pacemaker. (2) Elevated d-dimer Status: Acute Assessment & Plan: V/Q scan without evidence of PE (3) History of stroke Status: Chronic Assessment & Plan: With residual weakness of left leg and paralysis of left arm, recently advanced swallowing to pureed, still using PEG for supplemental nutrition. (4) CKD (chronic kidney disease) Status: Chronic (5) Hypertension Status: Chronic (6) Atrial fibrillation Status: Chronic Assessment & Plan: Continue metoprolol and cardizem (7) DVT prophylaxis Status: Acute Assessment & Plan: Resume home apixaban JENNIE DURATN MD Jun 16, 2022 16:25
[2022-06-16 16:51] VITALS: BP 103/57
--- NOTE | 2022-06-16 17:07 | Diagnostic Imaging Report ---
INDICATION: Left shoulder pain. AP and transscapular views of left shoulder are obtained. FINDINGS: Portions of the left shoulder are obscured on the AP image by pacemaker battery pack. No acute fracture or dislocation is identified. No abnormal lytic or sclerotic focus is seen, and there is no radiopaque foreign body. IMPRESSION: No acute abnormality. Dictated by: Dictated on workstation # [id number]
[2022-06-16 19:57] VITALS: BP 115/64
[2022-06-16] MEDS: guaiFENesin (MUCINEX) 600 MG TAB PO SCH (20:04)
[2022-06-16] MEDS: oxyCODONE/APAP 5/325MG (PERCOCET 5) TABLET PO PRN (23:20)
[2022-06-17] VITALS: BP 123/71
[2022-06-17] MEDS: NS IV 1000 ML 1,000 ML IV SCH ×2 (02:07→09:05)
[2022-06-17 04:02] VITALS: BP 130/84
[2022-06-17] MEDS: PIPERACILLIN SODIUM/TAZOBACTAM 4.5 GM in NS (IVPB) 100 ML IV SCH ×2 (05:07→13:08)
[2022-06-17 07:47] VITALS: BP 137/78
[2022-06-17] MEDS: CLOPIDOGREL 75 MG (PLAVIX) TABLET PEG SCH (08:51)
[2022-06-17] MEDS: APIXABAN 2.5 MG (ELIQUIS) TABLET PEG SCH (08:51)
[2022-06-17] MEDS: ASPIRIN 81 MG CHEW (CHILDREN'S ASA) PEG SCH (08:51)
[2022-06-17] MEDS: SALINE NASAL SPRAY (OCEAN) 45 ML BTL SCH (08:52)
[2022-06-17] MEDS: OXYBUTYNIN (DITROPAN) 5 MG TAB PO SCH (08:52)
[2022-06-17 09:03] LABS: HEMATOCRIT 31 % (35-52); HEMOGLOBIN 9.8 g/dL (11.5-16.0); MEAN CORPUSCULAR HEMOGLOBIN 31 pg (25-34); MEAN CORPUSCULAR HGB CONC 32 g/dL (32-36); MEAN CORPUSCULAR VOLUME 97 fL (80-99); MEAN PLATELET VOLUME 8.7 fL (9.0-12.2); PLATELET COUNT 279 10^3/uL (130-400); WHITE BLOOD COUNT 11.6 10^3/uL (4.3-11.0)
[2022-06-17 09:24] LABS: CALCIUM 8.6 MG/DL (8.5-10.1); CREATININE SERUM 1.21 MG/DL (0.60-1.30); POTASSIUM 4.3 MMOL/L (3.6-5.0)
[2022-06-17] MEDS ORDERED: AMOX1TAB12 PO (11:25)
[2022-06-17 11:42] VITALS: BP 133/75
--- NOTE | 2022-06-17 13:18 | Discharge Summary ---
Discharge Summary Hospital Course Problems/Diagnosis: (1) Acute parotitis Status: Acute Assessment & Plan: Started on Zosyn, leukocytosis noted, but unclear if may be tumor infiltrating, will monitor symptoms with treatment and continue to adjust as course dictates. 06/15- leukocytosis unchanged, clinical findings not clearly consistent with infection, will check MRI 06/16 MRI pending, trying to determine if can be done with her pacemaker. 06/17 discharged with Augmentin to continue, discussed with daughter would still recommend follow up imaging if not clearly resolved with antibiotics- no response from Cardiology office about her pacemaker and MRI compatability before d/c, so can have outpatient imaging if needed. (2) Elevated d-dimer Status: Acute Assessment & Plan: V/Q scan without evidence of PE (3) History of stroke Status: Chronic Assessment & Plan: With residual weakness of left leg and paralysis of left arm, recently advanced swallowing to pureed, still using PEG for supplemental nutrition. (4) CKD (chronic kidney disease) Status: Chronic (5) Hypertension Status: Chronic (6) Atrial fibrillation Status: Chronic Assessment & Plan: Continue metoprolol and cardizem Hospital Course Date of Admission: Jun 13, 2022 at 23:46 Admission Diagnosis : Family Physician/Provider: Joseph Mcgregor MD Date of Discharge: 06/17/22 Discharge Diagnosis: See problem list Hospital Course: See problem list Labs and Pending Lab Test: Laboratory Tests 06/17/22 08:50: White Blood Count 11.6H, Red Blood Count 3.19L, Hemoglobin 9.8L, Hematocrit 31L, Mean Corpuscular Volume 97, Mean Corpuscular Hemoglobin 31, Mean Corpuscular Hemoglobin Concent 32, Red Cell Distribution Width 16.5H, Platelet Count 279, M marcie Platelet Volume 8.7L, Sodium Level 140, Potassium Level 4.3, Chloride Level 115H, Carbon Dioxide Level 13L, Anion Gap 12, Blood Urea Nitrogen 18, Creatinine 1.21, Estimat Glomerular Filtration Rate 45, BUN/Creatinine Ratio 15, Glucose Level 132H, Calcium Level 8.6 Microbiology 06/13/22 Blood Culture - Final, Complete Staph, 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) 06/13/22 Urine Culture - Final, Complete Gram Pos Mixed Bacterial Serina Home Meds Active Amox Tr-K Clv 875-125 mg Tab (Amoxicillin/Potassium Clav) 875 Mg-125 Mg Tablet 1 Each PO BID Reported Acetaminophen 160 Mg/5 Ml Oral.susp 30 Ml PEG Q6H PRN Tramadol HCl 50 Mg Tablet 50 Mg PO Q6H PRN Metoprolol Succinate 25 Mg Tab.er.24h 25 Mg PEG DAILY Mucinex (Guaifenesin) 600 Mg Tab.er.12h 600 Mg PEG HS Oxybutynin Chloride ER (Oxybutynin Chloride) 10 Mg Tab.er.24 10 Mg PO DAILY Diltiazem HCl 90 Mg Tablet 180 Mg PEG DAILY TAKES 2 (90MG) TABS Clopidogrel (Clopidogrel Bisulfate) 75 Mg Tablet 75 Mg PEG DAILY Aspirin EC (Aspirin) 81 Mg Tablet.dr 81 Mg PEG DAILY Eliquis (Apixaban) 2.5 Mg Tablet 2.5 Mg PEG BID Assessment/Pt DC Instructions Follow up with Dr. Mcgregor within a week of discharge. Discharge Diet: Other Diet (tube feeding per previous orders) Activity as Tolerated: Yes Discharge Physical Examination Allergies: Coded Allergies: sulfamethoxazole (Verified Allergy, Unknown, 11/15/18) caused renal failure last time taken. trimethoprim (Verified Allergy, Unknown, 11/15/18) caused renal failure last time taken. General Appearance: No Apparent Distress HEENT: Other (mild asymetric enlargement of right neck around TMJ, no ttp) Respiratory: Other (end expiratory wheeze) Cardiovascular: Regular Rate, Rhythm Gastrointestinal: Normal Bowel Sounds, Soft, Other (PEG tube in place with no erythema or surrounding drainage) Extremity: No Pedal Edema Skin: Normal Color, Warm/Dry Neurologic/Psychiatric: Alert, Other (oriented to self and knows she is in the hospital but thought it was in [place]) JENNIE DURANT MD Jun 17, 2022 13:18
[2022-06-17 15:13] VITALS: BP 133/75
[2022-06-17 15:42] VITALS: BP 133/75
== END 2022-06-17 11:25 ==
LOC: ER FS 18:02 → UNDOADMOB 23:46 → 4TH 23:46 → UNDODISOB 06-17 15:53
PROVIDERS: ADMIT Family Medicine; ATTEND Family Medicine
DX: K11.21 Acute sialoadenitis (principal); I48.0 Paroxysmal atrial fibrillation; I12.9 Hypertensive chronic kidney disease with stage 1 through stage 4 chronic kidney disease, or unspecified chronic kidney disease; N18.9 Chronic kidney disease, unspecified; R79.1 Abnormal coagulation profile; M19.09 Primary osteoarthritis, other specified site; Z86.73 Personal history of transient ischemic attack (TIA), and cerebral infarction without residual deficits; Z79.899 Other long term (current) drug therapy; Z87.891 Personal history of nicotine dependence; Z79.01 Long term (current) use of anticoagulants; Z79.82 Long term (current) use of aspirin
CPT/HCPCS: 36415; 70491; 73030; 78580; 80048 ×4; 80053; 80076; 81000; 83605; 83735; 85007; 85025; 85027 ×4; 85379; 85610; 85652; 85730; 87040; 87088; 94760; 96361; 96366 ×2; 96376 ×4; 99284; A9540; 96365; 96372; G0378; Q9967

== ENCOUNTER → 2022-07-07 | Outpatient (CLI) | payer MEDICARE, MEDICAID ==
[~2022-07-07] MED LIST changes: +ACET160O28 PEG; +AMOX1TAB12 PO; +CATHETER FLUSH 10 ML SYR IV PRN; +CLOP75TA28 PEG; +DILT90TA PEG; +GUAI600T43 PEG; +HOLD METFORMIN - RECEIVED CONTRAST 20 ML VIAL IV SCH; +IOHEXOL 350 MG/ML 100 ML (OMNIPAQUE 350) VIAL IV ONE; +LEVO750T; -LEVO750T39; +MTP25TSR PEG; +NS 100 ML (IVPB) BAG IV ONE; +OXYB10TA29 PO; +TRAM50TA3 PO
--- NOTE | 2022-07-07 18:59 | Diagnostic Imaging Report ---
PROCEDURE: CT neck soft tissue with contrast. TECHNIQUE: Multiple contiguous axial images were obtained through the neck after the administration of contrast. Auto Exposure Controls were utilized during the CT exam to meet ALARA standards for radiation dose reduction. INDICATION: Neck pain. Parotiditis. COMPARISON: Previous examination from June 13, 2022. FINDINGS: The prior apparent enhancement within the parotid gland appears to be intervally improved with diminished degree of nodular intraglandular enhancement present. The parenchyma remains somewhat nodular without findings of a definable focal mass or evidence of ductal dilatation. There is no identifiable sialolith. The left parotid gland and the submandibular glands are unremarkable. The posterior nasopharynx and oropharynx appear symmetric. There is no displacement of the parapharyngeal fat planes. The base of the tongue is unremarkable. There is no thickening of the epiglottis. The vallecula and piriform sinuses are aerated. Vocal folds appear symmetric. The visualized intracranial contents unremarkable. There is flow within the major intracranial vasculature. The dural venous sinuses are patent. The orbits appear unremarkable. The paranasal sinuses are clear. The mastoids and the middle ears appear clear. There are no findings of pathologically enlarged cervical lymph nodes. Note is made of a right sided carotid stent which appears to be occluded. There is patent flow within the left carotid system within the vertebral arteries. The internal jugular veins are patent. Lung apices demonstrate some stable scarring of both of the lung apices. There are background degenerative features within the cervical spine. 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 IMPRESSION: 1. Diminished hyperenhancement within the right parotid gland compared to the prior exam. There is no definable focal mass. 2. The aerodigestive tract appears appropriately symmetric. 3. No pathologically enlarged lymph nodes. 4. A prior right-sided carotid stent appears to be occluded. There is flow within the major intracranial vessels. Dictated by: Dictated on workstation # [id number]
== END ==
LOC: RAD FS 14:16
PROVIDERS: ATTEND Family Medicine
DX: K11.21 Acute sialoadenitis (principal); Z98.62 Peripheral vascular angioplasty status
CPT/HCPCS: 70491; Q9967

== ENCOUNTER 2022-08-14 17:03 | Emergency (ER) | payer MEDICARE, MEDICAID ==
[~2022-08-14] VITALS: Ht 160 cm; Wt 47.6 kg
[~2022-08-14 17:03] MED LIST changes: -CATHETER FLUSH 10 ML SYR IV PRN; -HOLD METFORMIN - RECEIVED CONTRAST 20 ML VIAL IV SCH; -IOHEXOL 350 MG/ML 100 ML (OMNIPAQUE 350) VIAL IV ONE; -NS 100 ML (IVPB) BAG IV ONE
--- NOTE | 2022-08-14 17:46 | ED Abdominal Pain ---
General Chief Complaint: Abdominal/GI Problems Stated Complaint: RECTAL PAIN History of Present Illness Date Seen by Provider: Aug 14, 2022 Time Seen by Provider: 17:44 Initial Comments 81-year-old female here with lower abdominal pain. Patient states it hurts when she moves. When she sits. Patient does have depends on. Patient not having any fever or chills. Family states that a EDUCATION SUPERVISOR evaluated her at the residential and said she has a prolapsed uterus that is partially coming out and I think that that is the problem but that he does not feel like she would make it through surgery so they were not going to be doing any kind of surgery. Patient is in a lot of pain. She is on tramadol. Have a stroke in March and is working on starting to feed herself again. Feels like she is constipated but family states she does have a bowel movement every day. Allergies and Home Medications Allergies Coded Allergies: sulfamethoxazole (Verified Allergy, Unknown, 11/15/18) caused renal failure last time taken. trimethoprim (Verified Allergy, Unknown, 11/15/18) caused renal failure last time taken. Patient Home Medication List Home Medication List Reviewed: Yes Acetaminophen (Acetaminophen) 160 Mg/5 Ml Oral.susp, 30 ML PEG Q6H PRN for PAIN- MILD (1-4), (Reported) Entered as Reported by: KATIE SÁNCHEZ on 06/14/22 1344 Amoxicillin/Potassium Clav (Amox Tr-K Clv 875-125 mg Tab) 875 Mg-125 Mg Tablet, 1 EACH PO BID Prescribed by: JENNIE DURANT on 06/17/22 1125 Apixaban (Eliquis) 2.5 Mg Tablet, 2.5 MG PEG BID, (Reported) Entered as Reported by: WALLY WARNER on 01/18/21 1046 Aspirin (Aspirin EC) 81 Mg Tablet.dr, 81 MG PEG DAILY, (Reported) Entered as Reported by: JULIA DELAROSA on 03/28/22 2217 Clopidogrel Bisulfate (Clopidogrel) 75 Mg Tablet, 75 MG PEG DAILY, (Reported) Entered as Reported by: KATIE SÁNCHEZ on 06/14/22 1344 Diltiazem HCl (Diltiazem HCl) 90 Mg Tablet, 180 MG PEG DAILY, (Reported) Entered as Reported by: KATIE SÁNCHEZ on 06/14/22 1344 Guaifenesin (Mucinex) 600 Mg Tab.er.12h, 600 MG PEG HS, (Reported) Entered as Reported by: KATIE SÁNCHEZ on 06/14/22 1344 Metoprolol Succinate (Metoprolol Succinate) 25 Mg Tab.er.24h, 25 MG PEG DAILY, (Reported) Entered as Reported by: KATIE SÁNCHEZ on 06/14/22 1344 Oxybutynin Chloride (Oxybutynin Chloride ER) 10 Mg Tab.er.24, 10 MG PO DAILY, (Reported) Entered as Reported by: KATIE SÁNCHEZ on 06/14/22 1344 Tramadol HCl (Tramadol HCl) 50 Mg Tablet, 50 MG PO Q6H PRN for PAIN-MODERATE (5- 7), (Reported) Entered as Reported by: KATIE SÁNCHEZ on 06/14/22 1344 Review of Systems Review of Systems Constitutional: see HPI Past Xoecnbm-Gbmxpe-Cwcpzl Hx Patient Social History Tobacco Use?: No Seasonal Allergies Seasonal Allergies: No Past Medical History Surgery/Hospitalization HX: Paroxysmal Atrial Fibrillation, Pacemaker March 10, 2022, Hx pericardial effusion, Cardiac Stent x 1 in 2019, Interstitual Pulmonary Dz, Anxiety, HTN, CKD, Hyperlipidemia, UTI's Surgeries: Yes (LEFT HIP FX, CATARACTS) Coronary Stent, Eye Surgery, Orthopedic, Pacemaker Respiratory: Yes (COPD, BRONCHITIS, BRONCHIECTASIS) COPD Currently Using CPAP: No Currently Using BIPAP: No Cardiac: Yes Atrial Fibrillation Neurological: No Genitourinary: Yes Bladder Infection, UTI-Chronic Gastrointestinal: No Musculoskeletal: No Arthritis Endocrine: No HEENT: Yes (CATARACT SURGERY) Cataract Cancer: No Psychosocial: No Integumentary: No Blood Disorders: No Adverse Reaction/Blood Tranf: No Physical Exam Vital Signs Vital Signs - First Documented 08/14/22 17:08 Temp 35.9 Pulse 91 Resp 14 B/P (MAP) 151/68 (95) Pulse Ox 100 O2 Delivery Room Air Capillary Refill : Height/Weight/BMI Height: 5'3.00" Weight: 130lbs. 0oz. 58.232762xg; 18.82 BMI Method:Stated General Appearance: mild distress HEENT: normal ENT inspection Neck: normal inspection Gastrointestinal: normal bowel sounds, tenderness (lower abdomen) Skin: normal color, warm/dry Progress/Results/Core Measures Results/Orders Lab Results Laboratory Tests Test 08/14/22 18:20 Range/Units White Blood Count 15.9 H 4.3-11.0 10^3/uL Red Blood Count 3.89 3.80-5.11 10^6/uL Hemoglobin 11.9 11.5-16.0 g/dL Hematocrit 36 35-52 % Mean Corpuscular Volume 93 80-99 fL Mean Corpuscular Hemoglobin 31 25-34 pg Mean Corpuscular Hemoglobin Concent 33 32-36 g/dL Red Cell Distribution Width 15.0 H 10.0-14.5 % Platelet Count 402 H 130-400 10^3/uL Mean Platelet Volume 9.0 9.0-12.2 fL Immature Granulocyte % (Auto) 1 % Neutrophils (%) (Auto) 70 42-75 % Lymphocytes (%) (Auto) 18 12-44 % Monocytes (%) (Auto) 9 0-12 % Eosinophils (%) (Auto) 2 0-10 % Basophils (%) (Auto) 0 0-10 % Neutrophils # (Auto) 11.1 H 1.8-7.8 10^3/uL Lymphocytes # (Auto) 2.8 1.0-4.0 10^3/uL Monocytes # (Auto) 1.4 H 0.0-1.0 10^3/uL Eosinophils # (Auto) 0.4 H 0.0-0.3 10^3/uL Basophils # (Auto) 0.1 0.0-0.1 10^3/uL Immature Granulocyte # (Auto) 0.1 0.0-0.1 10^3/uL Neutrophils % (Manual) 76 % Lymphocytes % (Manual) 18 % Monocytes % (Manual) 4 % Eosinophils % (Manual) 2 % Sodium Level 136 135-145 MMOL/L Potassium Level 4.9 3.6-5.0 MMOL/L Chloride Level 97 L 98-107 MMOL/L Carbon Dioxide Level 24 21-32 MMOL/L Anion Gap 15 H 5-14 MMOL/L Blood Urea Nitrogen 64 H 7-18 MG/DL Creatinine 1.67 H 0.60-1.30 MG/DL Estimat Glomerular Filtration Rate 30 BUN/Creatinine Ratio 38 Glucose Level 88 70-105 MG/DL Calcium Level 10.8 H 8.5-10.1 MG/DL Corrected Calcium 11.2 H 8.5-10.1 MG/DL Total Bilirubin 0.4 0.1-1.0 MG/DL Aspartate Amino Transf (AST/SGOT) 28 5-34 U/L Alanine Aminotransferase (ALT/SGPT) 40 0-55 U/L Alkaline Phosphatase 138 H 40-136 U/L Total Protein 8.4 H 6.4-8.2 GM/DL Albumin 3.5 3.2-4.5 GM/DL My Orders Orders - MACHO BURCIAGA MD Cbc And Manual Diff (08/14/22 17:46) Comprehensive Metabolic Panel (08/14/22 17:46) Urinalysis (08/14/22 17:46) Ct Abdomen/Pelvis Wo (08/14/22 17:46) Hydrocodone/Apap 5/325 Tablet (Lortab 5 (08/14/22 18:45) Na Phos/Na Biphos Enema (Fleet Enema Ted (08/14/22 19:15) Medications Given in ED Current Medications Medications Dose Ordered Sig/Celina Route Start Time Stop Time Status Last Admin Dose Admin Acetaminophen/ Hydrocodone Bitart 1 ea ONCE ONCE PO 08/14/22 18:45 08/14/22 18:48 DC 08/14/22 19:20 1 EA Sodium Biphosphate/ Sodium Phosphate 1 ea ONCE ONCE UT 08/14/22 19:15 08/14/22 19:16 DC 08/14/22 19:20 1 EA Vital Signs/I&O 08/14/22 17:08 Temp 35.9 Pulse 91 Resp 14 B/P (MAP) 151/68 (95) Pulse Ox 100 O2 Delivery Room Air Progress Progress Note : Time: 19:[address] results reviewed. Patient has stool ball in the rectum. Fleets enema ordered and patient was able to move her bowels and get a lot of stool out. Patient is feeling better. Will discharge back to residential with recommendation for fleets enemas. CT Results/Progress Notes [place], [place] NAME: [facility] REC#: [id number] PT STATUS: REG ER : 1940 PHYSICIAN: MACHO BURCIAGA MD ADMIT DATE: 08/14/22/ER FS Signed Date of Exam:08/14/22 CT ABDOMEN/PELVIS WO EXAMINATION: CT abdomen and pelvis without contrast. TECHNIQUE: Multiple contiguous axial images were obtained through the abdomen and pelvis without the use of intravenous contrast. All CT scans use one or more of the following dose optimizing techniques: automated exposure control, MA and/or KvP adjustment based on patient size and exam type or iterative reconstruction. HISTORY: Lower abdominal pain. COMPARISON: 08/01/2020. FINDINGS: Limited views of the lower thorax show bronchial wall thickening and mucous plugging, similar to prior exam. Pacemaker is present. The liver is normal without focal lesion. There is no biliary ductal dilation. Gallbladder is surgically absent. Pancreas is normal. Spleen is normal. Adrenal glands are normal. The kidneys are normal. There is no hydronephrosis. There are layering stones in the urinary bladder. Bowel is normal in caliber without obstruction or inflammation. Large stool ball is present in the rectum. There is pelvic floor relaxation. There is diverticulosis without diverticulitis. There is a percutaneous gastrostomy tube. No free fluid or air. No abdominal or pelvic lymphadenopathy. Aorta is normal in caliber without aneurysm. There is no suspicious osseous lesion. IMPRESSION: 1. Layering stones in the urinary bladder. 2. Large stool ball in the rectum. 3. Basilar bronchiectasis and mucous plugging with bronchial wall thickening likely representing chronic endobronchial infection. 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 Decision time for Depature: 19:55 Referrals: GIOVANNI CAMPBELL MD (PCP/Family) Primary Care Physician Patient Instructions: Constipation, Adult (DC) Add. Discharge Instructions: Stool removed. Patient feeling better. Recommend fleets enema once daily as needed for constipation. All discharge instructions reviewed with patient and/or family. Voiced understanding. MACHO BURCIAGA MD Aug 14, 2022 17:46
[2022-08-14 18:26] LABS: BASOPHILS # (AUTO) 0.1 10^3/uL (0.0-0.1); BASOPHILS % (AUTO) 0 % (0-10); EOSINOPHILS # (AUTO) 0.4 10^3/uL (0.0-0.3); EOSINOPHILS % (AUTO) 2 % (0-10); HEMATOCRIT 36 % (35-52); HEMOGLOBIN 11.9 g/dL (11.5-16.0); LYMPHOCYTES # (AUTO) 2.8 10^3/uL (1.0-4.0); LYMPHOCYTES % (AUTO) 18 % (12-44); MEAN CORPUSCULAR HEMOGLOBIN 31 pg (25-34); MEAN CORPUSCULAR HGB CONC 33 g/dL (32-36); MEAN CORPUSCULAR VOLUME 93 fL (80-99); MONOCYTES # (AUTO) 1.4 10^3/uL (0.0-1.0); MONOCYTES % (AUTO) 9 % (0-12); NEUTROPHILS # (AUTO) 11.1 10^3/uL (1.8-7.8); NEUTROPHILS % (AUTO) 70 % (42-75); PLATELET COUNT 402 10^3/uL (130-400); WHITE BLOOD COUNT 15.9 10^3/uL (4.3-11.0)
[2022-08-14] MEDS ORDERED: HYDROcodone/APAP 5 MG/325 MG (LORTAB) TAB PO ONE (18:45)
[2022-08-14 18:46] LABS: ALBUMIN 3.5 GM/DL (3.2-4.5); BILIRUBIN,TOTAL 0.4 MG/DL (0.1-1.0); CALCIUM 10.8 MG/DL (8.5-10.1); CREATININE SERUM 1.67 MG/DL (0.60-1.30); POTASSIUM 4.9 MMOL/L (3.6-5.0); TOTAL PROTEIN 8.4 GM/DL (6.4-8.2)
--- NOTE | 2022-08-14 18:48 | Diagnostic Imaging Report ---
EXAMINATION: CT abdomen and pelvis without contrast. TECHNIQUE: Multiple contiguous axial images were obtained through the abdomen and pelvis without the use of intravenous contrast. All CT scans use one or more of the following dose optimizing techniques: automated exposure control, MA and/or KvP adjustment based on patient size and exam type or iterative reconstruction. HISTORY: Lower abdominal pain. COMPARISON: 08/01/2020. FINDINGS: Limited views of the lower thorax show bronchial wall thickening and mucous plugging, similar to prior exam. Pacemaker is present. The liver is normal without focal lesion. There is no biliary ductal dilation. Gallbladder is surgically absent. Pancreas is normal. Spleen is normal. Adrenal glands are normal. The kidneys are normal. There is no hydronephrosis. There are layering stones in the urinary bladder. Bowel is normal in caliber without obstruction or inflammation. Large stool ball is present in the rectum. There is pelvic floor relaxation. There is diverticulosis without diverticulitis. There is a percutaneous gastrostomy tube. No free fluid or air. No abdominal or pelvic lymphadenopathy. Aorta is normal in caliber without aneurysm. There is no suspicious osseous lesion. IMPRESSION: 1. Layering stones in the urinary bladder. 2. Large stool ball in the rectum. 3. Basilar bronchiectasis and mucous plugging with bronchial wall thickening likely representing chronic endobronchial infection. Dictated by: Dictated on workstation # [id number]
[2022-08-14 18:52] LABS: EOSINOPHILS % (MANUAL) 2 %; LYMPHOCYTES % (MANUAL) 18 %; MONOCYTES % (MANUAL) 4 %; NEUTROPHILS % (MANUAL) 76 %
[2022-08-14] MEDS ORDERED: FLEET ENEMA ADULT 1 EA BTL PR ONE (19:15)
[2022-08-14 20:10] VITALS: BP 125/85
== END 2022-08-14 20:10 ==
LOC: EDUNIT# 17:03 → ER FS 17:04
DX: K59.00 Constipation, unspecified (principal); Z79.891 Long term (current) use of opiate analgesic
CPT/HCPCS: 36415; 74176; 80053; 85007; 85027